=== PATIENT | female | born 1935 | race Caucasian/White ===

== ENCOUNTER 2021-05-26 02:50 | Inpatient (IN) ==
[2021-05-26] MEDS ORDERED: ONDANSETRON INJ 2 MG/ML 2 ML VIAL IV STA (03:25)
[2021-05-26] MEDS ORDERED: HYDROmorphone INJ 0.5 MG/0.5 ML SYR IV STA ×2 (03:25→03:41)
[2021-05-26 03:28] LABS: Basophils # (auto) 0.02 K/uL (0-0.2); Basophils % (auto) 0.2 %; Eosinophils # (auto) 0.21 K/uL (0-0.5); Eosinophils % (auto) 2.3 %; Hematocrit (blood only) 37.1 % (37-47); Hemoglobin 12.8 g/dL (12.0-16.0); Immature Granulocytes # (auto) 0.04 K/uL (0.00-0.02); Immature Granulocytes % (auto) 0.4 %; Lymphocytes # (auto) 4.16 K/uL (1.2-3.4); Lymphocytes % (auto) 46.5 %; Mean Corpuscular Hemoglobin 33.2 pg (25-34); Mean Corpuscular Hgb Conc 34.5 g/dL (32-36); Mean Corpuscular Volume 96.1 fL (80-100); Mean Platelet Volume 10.8 fL (7.4-10.4); Monocytes # (auto) 0.66 K/uL (0.11-0.59); Monocytes % (auto) 7.4 %; Neutrophils # (auto) 3.86 K/uL (1.4-6.5); Neutrophils % (auto) 43.2 %; Platelet Count 194 K/uL (130-400); RDW Coefficient of Variation 13.8 % (11.5-14.5); RDW Standard Deviation 48.9 fL (36.4-46.3); Red Blood Count 3.86 M/uL (4.2-5.4); White Blood Count 8.95 K/uL (4.8-10.8)
[2021-05-26 03:39] LABS: INR 1.1 (0.9-1.1); Partial Thromboplastin Ratio 0.8; Partial Thromboplastin Time 22.6 Seconds (21.0-31.0); Prothrombin Time 11.3 Seconds (9.0-12.0)
[2021-05-26 03:46] LABS: Albumin Globulin Ratio 1.5 (0.9-2); BUN Creatinine Ratio 16.7 (10-20); Bilirubin,Total 0.9 mg/dl (0.2-1.0); Calcium 9.4 mg/dl (8.5-10.1); Creatinine Clr Calc Pharmacy 37.8 ml/min; Est GFR (African American) 53.8 ml/min; Est GFR (Non-African American) 46.4 ml/min; Globulin 2.7 gm/dl (2.5-4.0); Potassium 3.4 mmol/L (3.5-5.1); Total Protein 6.7 gm/dl (6.0-8.3)
--- NOTE | 2021-05-26 03:53 | Emergency Department Note ---
Impression & Plan Fracture of hip, left, closed, Fall Admit to the [facility] ED Provider Note NAME: YESICA KASPER AGE: 85 SEX: F ARRIVES VIA: Ambulance INFORMANT: Patient ED PROVIDER(S): Jelena Phillips DO CHIEF COMPLAINT: Fall PLAN: Disposition: Admit to the [facility] with consultation to orthopedics Condition: Stable MEDICAL DECISION MAKING: This is an 85-year-old female patient who fell out of bed and complains of severe left hip pain. The patient was found on the floor complaining of pain in her left groin. Patient suffers from dementia. X-ray shows evidence of a left femoral neck fracture. Patient was treated with IV Dilaudid and fentanyl for her pain. There were no other outward signs of trauma to the patient. Triage Nursing notes reviewed and agree with them. Additional history obtained from EMS Prior medical records reviewed Vital Signs: reviewed and remarkable for hypertension Differential diagnosis: Hip fracture, pelvis fracture, head injury ER treatment provided: IV Dilaudid x2 IV Zofran IV fentanyl Diagnostics interpreted by me: ECG: Sinus bradycardia at [address] segment elevation or signs of ischemia. There is a left bundle branch block. This EKG is unchanged from March 2021 Cardiac Monitoring: Sinus bradycardia at 59 Laboratory studies: See below Imaging studies: As per my interpretation Left hip x-ray: Femoral neck fracture Chest x-ray: No acute pulmonary pathology HPI: 85/F arrives for evaluation of fall. The patient fell out of bed. She was found on the floor yelling out in pain. There was no loss of consciousness. ROS: The patient suffers from dementia and I cannot complete review of systems. PAST MEDICAL HISTORY:See Below PAST SURGICAL HISTORY:See Below FAMILY HISTORY:See Below SOCIAL HISTORY:See Below HOME MEDICATIONS:See list ALLERGIES:See list VITALS:See Below PHYSICAL EXAMINATION: HEENT: Head - normocephalic and atraumatic Pupils are equal, round, and reactive to light. Extraocular eye muscles are intact, and sclera are anicteric. Nose - moist nasal mucosa without discharge. Mouth - moist buccal mucosa. Oropharynx is nonerythematous and there is no tonsillar exudate or edema noted. Neck: Supple; no pain to palpation of the posterior cervical spine Heart: Bradycardic rate and regular rhythm. There is a normal S1 and S2 with no murmurs, clicks, or gallops appreciated. Lungs: Clear to auscultation bilaterally with no wheezes, rales, or rhonchi. Abdomen: Soft, completely nontender, nondistended, with good bowel sounds. There are no palpable pulsatile masses or hepatosplenomegaly. There is no guarding, rigidity, or rebound noted. Extremities: Left lower extremity is shortened and internally rotated. Patient has moderate pain to palpation over the left hip and groin. Skin: warm and dry with good turgor and no rashes. ED COURSE: Times/Reassessments: 310: The patient was evaluated in room A4. An IV lock was initiated and the patient was medicated with IV Dilaudid and Zofran. Her studies were drawn as above. A complete history and physical was performed. Patient had x-rays of her left hip and chest. Bergeron catheter was placed. I discussed the case with the [facility] hospitalist. Jelena Phillips DO Past Med/Surg History Medical History Acute kidney failure Alzheimer disease Anorexia Anxiety disorder Ataxic gait Dementia Dizziness and giddiness Hyperlipidemia Hypertension Muscle weakness Surgical History Surgical history unknown Social History Smoking Status: Never smoker Second Hand Exposure: No; Hx Alcohol Use: No Hx Substance Use: No Preferred Language: Nepali Communication Ability: Effective Office Coordinator Receptionist Required: No Beliefs That Will Affect Care: None Current Living Situation: Jail Feels Safe at Home: Yes Assistive Devices: Oxygen - Continuous Allergies Allergies Allergy/AdvReac Type Severity Reaction Status Date / Time procaine [From Novocain] Allergy Verified 05/09/21 12:36 Home Meds Home Medications Medication Instructions Recorded Confirmed atenolol 25 mg tablet 25 mg PO QAM 03/12/21 05/26/21 atorvastatin 10 mg tablet 10 mg PO PM 03/12/21 05/26/21 calcium carbonate 600 mg-vitamin 1 tab PO DAILY 03/12/21 05/26/21 D3 20 mcg (800 unit) chewable tablet (Caltrate 600 plus D) donepezil 10 mg tablet 10 mg PO QPM 03/12/21 05/26/21 lorazepam 1 mg tablet 1 mg PO QPM 03/12/21 05/26/21 meclizine 25 mg tablet 25 mg PO Q8H PRN 03/12/21 05/26/21 multivitamin 1 tab PO DAILY 03/12/21 05/26/21 potassium chloride 20 mEq 20 meq PO DAILY 03/12/21 05/26/21 tablet,extended release ondansetron HCl 4 mg tablet 4 mg PO Q8H PRN 04/01/21 05/26/21 loperamide 2 mg tablet 2 mg PO Q4H PRN 05/03/21 05/26/21 memantine 5 mg tablet 5 mg PO BID 05/03/21 05/26/21 aspirin 81 mg capsule 81 mg PO DAILY 05/09/21 05/26/21 Previous Rx's Medication Instructions Recorded pantoprazole 40 mg tablet,delayed 40 mg PO BID #180 tab 04/09/21 release Results & Data (ED) Vital Signs Vital Signs - 24 hr 05/26/21 02:53 05/26/21 04:20 Temperature 36.5 C Temperature Source Oral Pulse Rate 59 L Pulse Rate [Right Finger] 58 L Pulse Rhythm [Right Finger] Regular Respiratory Rate 20 20 Respiratory Effort / Characteristics Non-Labored Spontaneous Respiratory Depth Normal Respiratory Pattern Regular Blood Pressure 152/101 H Blood Pressure [Right Arm] 138/71 Blood Pressure Mean 118 Blood Pressure Mean [Right Arm] 93 Blood Pressure Position Lying Pulse Oximetry 100 100 Oxygen Delivery Method Room Air Room Air Sepsis Recent Fever Within 48 Hours No Sepsis New/Unexplained Change in Mental Status No Sepsis Action Taken by Nursing No Action Required Laboratory Data Result diagrams: 05/26/21 11:45 05/26/21 20:20 Lab Results 05/26/21 05/26/21 05/26/21 Range/Units 03:18 03:18 03:18 WBC 8.95 (4.8-10.8) K/uL RBC 3.86 L (4.2-5.4) M/uL Hgb 12.8 (12.0-16.0) g/dL Hct 37.1 (37-47) % MCV 96.1 (80-100) fL MCH 33.2 (25-34) pg MCHC 34.5 (32-36) g/dL RDW Std Deviation 48.9 H (36.4-46.3) fL RDW Coeff of Ria 13.8 (11.5-14.5) % Plt Count 194 (130-400) K/uL MPV 10.8 H (7.4-10.4) fL Immature Gran % (Auto) 0.4 % Neut % (Auto) 43.2 % Lymph % (Auto) 46.5 % [place] % (Auto) 7.4 % Eos % (Auto) 2.3 % Baso % (Auto) 0.2 % Neut # (Auto) 3.86 (1.4-6.5) K/uL Lymph # (Auto) 4.16 H (1.2-3.4) K/uL [place] # (Auto) 0.66 H (0.11-0.59) K/uL Eos # (Auto) 0.21 (0-0.5) K/uL Baso # (Auto) 0.02 (0-0.2) K/uL Immature Gran # (Auto) 0.04 H (0.00-0.02) K/uL PT 11.3 (9.0-12.0) Seconds INR 1.1 (0.9-1.1) APTT 22.6 (21.0-31.0) Seconds PTT Ratio 0.8 Sodium 141 (136-145) mmol/L Potassium 3.4 L (3.5-5.1) mmol/L Chloride 108 H (98-107) mmol/L Carbon Dioxide 23 (21-32) mmol/L Anion Gap 10 (3-11) BUN 18 (6-23) mg/dl Creatinine 1.08 (0.6-1.2) mg/dl Est Cr Clr Drug Dosing 37.8 ml/min Est GFR ( Amer) 53.8 ml/min Est GFR (Non-Af Amer) 46.4 ml/min BUN/Creatinine Ratio 16.7 (10-20) Glucose 94 (70-99(Fasting)) mg/dl Calcium 9.4 (8.5-10.1) mg/dl Total Bilirubin 0.9 (0.2-1.0) mg/dl AST 21 (13-39) U/L ALT 15 (7-52) U/L Alkaline Phosphatase 71 (34-104) U/L Total Protein 6.7 (6.0-8.3) gm/dl Albumin 4.0 (3.4-5.0) gm/dl Globulin 2.7 (2.5-4.0) gm/dl Albumin/Globulin Ratio 1.5 (0.9-2) Urine Color Urine Appearance (Clear) Urine pH (4.5-7.5) Ur Specific [place] (1.000-1.030) Urine Protein (Negative) Urine Glucose (UA) (Negative) Urine Ketones (Negative) Urine Blood (Negative) Urine Nitrite (Negative) Urine Bilirubin (Negative) Urine Urobilinogen (Negative) Ur Leukocyte Esterase (Negative) SARS-CoV-2, RNA, NAAT (NEGATIVE) 05/26/21 05/26/21 Range/Units 03:55 04:43 WBC (4.8-10.8) K/uL RBC (4.2-5.4) M/uL Hgb (12.0-16.0) g/dL Hct (37-47) % MCV (80-100) fL MCH (25-34) pg MCHC (32-36) g/dL RDW Std Deviation (36.4-46.3) fL RDW Coeff of Ira (11.5-14.5) % Plt Count (130-400) K/uL MPV (7.4-10.4) fL Immature Gran % (Auto) % Neut % (Auto) % Lymph % (Auto) % [place] % (Auto) % Eos % (Auto) % Baso % (Auto) % Neut # (Auto) (1.4-6.5) K/uL Lymph # (Auto) (1.2-3.4) K/uL [place] # (Auto) (0.11-0.59) K/uL Eos # (Auto) (0-0.5) K/uL Baso # (Auto) (0-0.2) K/uL Immature Gran # (Auto) (0.00-0.02) K/uL PT (9.0-12.0) Seconds INR (0.9-1.1) APTT (21.0-31.0) Seconds PTT Ratio Sodium (136-145) mmol/L Potassium (3.5-5.1) mmol/L Chloride (98-107) mmol/L Carbon Dioxide (21-32) mmol/L Anion Gap (3-11) BUN (6-23) mg/dl Creatinine (0.6-1.2) mg/dl Est Cr Clr Drug Dosing ml/min Est GFR ( Amer) ml/min Est GFR (Non-Af Amer) ml/min BUN/Creatinine Ratio (10-20) Glucose (70-99(Fasting)) mg/dl Calcium (8.5-10.1) mg/dl Total Bilirubin (0.2-1.0) mg/dl AST (13-39) U/L ALT (7-52) U/L Alkaline Phosphatase (34-104) U/L Total Protein (6.0-8.3) gm/dl Albumin (3.4-5.0) gm/dl Globulin (2.5-4.0) gm/dl Albumin/Globulin Ratio (0.9-2) Urine Color Yellow Urine Appearance Clear (Clear) Urine pH 8.0 H (4.5-7.5) Ur Specific [place] 1.009 (1.000-1.030) Urine Protein Negative (Negative) Urine Glucose (UA) Negative (Negative) Urine Ketones Negative (Negative) Urine Blood Negative (Negative) Urine Nitrite Negative (Negative) Urine Bilirubin Negative (Negative) Urine Urobilinogen Negative (Negative) Ur Leukocyte Esterase Negative (Negative) SARS-CoV-2, RNA, NAAT NEGATIVE (NEGATIVE) Administered Medications Atenolol (Atenolol 25 Mg Tablet) 25 mg PO QAM GISELLE Stop: 06/25/21 08:59 Last Admin: 05/26/21 12:05 Dose: Not Given Documented by: [id number] Atorvastatin Calcium (Atorvastatin 10 Mg Tab) 10 mg PO PM GISELLE Stop: 06/25/21 20:59 Last Admin: 05/26/21 20:10 Dose: Not Given Documented by: [id number] Lorazepam (Lorazepam 1 Mg Tab) 1 mg PO QPM GISELLE Stop: 06/25/21 20:59 Last Admin: 05/26/21 20:10 Dose: Not Given Documented by: [id number] Pantoprazole Sodium (Pantoprazole 40 Mg Tab) 40 mg PO BID GISELLE Stop: 06/25/21 08:59 Last Admin: 05/26/21 20:10 Dose: Not Given Documented by: [id number] Admin: 05/26/21 12:05 Dose: Not Given Documented by: [id number] Discontinued Medications Fentanyl Citrate (Fentanyl Citrate 100 Mcg/2 Ml Vial) 50 mcg IV NOW STA Stop: 05/26/21 04:29 Last Admin: 05/26/21 04:42 Dose: 50 mcg Documented by: [id number] Fentanyl Citrate (Fentanyl Citrate 100 Mcg/2 Ml Vial) 25 mcg IV NOW ONE Stop: 05/26/21 23:23 Last Admin: 05/26/21 23:26 Dose: 25 mcg Documented by: [id number] Fentanyl Citrate (Fentanyl Citrate 100 Mcg/2 Ml Vial) Confirm Administered Dose 100 mcg .ROUTE .STK-MED ONE Stop: 05/26/21 23:26 Last Admin: 05/26/21 23:27 Dose: Not Given Documented by: [id number] Hydromorphone HCl (Hydromorphone Inj 0.5 Mg/0.5 Ml Syr) 0.5 mg IV NOW STA Stop: 05/26/21 03:26 Last Admin: 05/26/21 03:28 Dose: 0.5 mg Documented by: [id number] Hydromorphone HCl (Hydromorphone Inj 0.5 Mg/0.5 Ml Syr) 0.5 mg IV NOW STA Stop: 05/26/21 03:42 Last Admin: 05/26/21 03:53 Dose: 0.5 mg Documented by: [id number] Lactated Ringer's (Lr) 1,000 mls @ 125 mls/hr IV .Q8H [facility] Stop: 05/26/21 14:05 Last Infusion: 05/26/21 19:53 Dose: 0 mls/hr Documented by: [id number] Infusion: 05/26/21 11:14 Dose: 80 mls/hr Documented by: [id number] Infusion: 05/26/21 10:07 Dose: 0 mls/hr Documented by: [id number] Admin: 05/26/21 07:26 Dose: 80 mls/hr Documented by: [id number] Potassium Chloride (K Saud / Wtr) 10 meq in 100 mls @ 100 mls/hr IV ONE ONE; Protocol Stop: 05/26/21 10:59 Last Infusion: 05/26/21 11:03 Dose: 0 mls/hr Documented by: [id number] Admin: 05/26/21 10:03 Dose: 100 mls/hr Documented by: [id number] Magnesium Sulfate/Dextrose (Magnesium Sulfate / D5w) 1 gm in 100 mls @ 50 mls/hr IV Q2H GISELLE Stop: 05/26/21 16:14 Last Infusion: 05/26/21 12:34 Dose: 0 mls/hr Documented by: [id number] Admin: 05/26/21 12:26 Dose: 50 mls/hr Documented by: [id number] Infusion: 05/26/21 12:26 Dose: 50 mls/hr Documented by: [id number] Admin: 05/26/21 12:26 Dose: 50 mls/hr Documented by: [id number] Potassium Chloride (K Saud / Wtr) 10 meq in 100 mls @ 100 mls/hr IV Q1H GISELLE; Protocol Stop: 05/26/21 14:59 Last Infusion: 05/26/21 14:25 Dose: 0 mls/hr Documented by: [id number] Admin: 05/26/21 13:45 Dose: 150 mls/hr Documented by: [id number] Infusion: 05/26/21 13:45 Dose: 0 mls/hr Documented by: [id number] Admin: 05/26/21 13:12 Dose: 150 mls/hr Documented by: [id number] Potassium Chloride (K Saud / Wtr) 10 meq in 100 mls @ 100 mls/hr IV Q1H GISELLE; Protocol Stop: 05/26/21 18:59 Last Infusion: 05/26/21 19:53 Dose: 0 mls/hr Documented by: [id number] Admin: 05/26/21 18:28 Dose: 100 mls/hr Documented by: [id number] Infusion: 05/26/21 18:27 Dose: 100 mls/hr Documented by: [id number] Admin: 05/26/21 17:27 Dose: 100 mls/hr Documented by: [id number] Infusion: 05/26/21 17:27 Dose: 100 mls/hr Documented by: [id number] Admin: 05/26/21 16:28 Dose: 100 mls/hr Documented by: [id number] Infusion: 05/26/21 16:25 Dose: 100 mls/hr Documented by: [id number] Admin: 05/26/21 15:25 Dose: 100 mls/hr Documented by: [id number] Infusion: 05/26/21 15:25 Dose: 100 mls/hr Documented by: [id number] Admin: 05/26/21 14:26 Dose: 100 mls/hr Documented by: [id number] Ketorolac Tromethamine (Ketorolac Tromethamine 15 Mg/Ml Vial) 15 mg IV NOW ONE Stop: 05/26/21 14:31 Last Admin: 05/26/21 14:47 Dose: 15 mg Documented by: [id number] Memantine (Memantine Hcl 5 Mg Tab) 5 mg PO BID GISELLE Stop: 06/25/21 08:59 Last Admin: 05/26/21 12:05 Dose: Not Given Documented by: [id number] Morphine Sulfate (Morphine Sulfate 2 Mg/Ml Carp) 2 mg IV NOW STA Stop: 05/26/21 05:40 Last Admin: 05/26/21 05:48 Dose: Not Given Documented by: [id number] Morphine Sulfate (Morphine Sulfate 2 Mg/Ml Carp) Confirm Administered Dose 2 mg .ROUTE .STK-MED ONE Stop: 05/26/21 05:42 Last Admin: 05/26/21 05:44 Dose: 2 mg Documented by: [id number] Morphine Sulfate (Morphine Sulfate 2 Mg/Ml Carp) 2 mg IV Q2H PRN PRN Reason: Pain (1,2,3,4,5) & Pre PT Stop: 06/09/21 07:04 Last Admin: 05/26/21 10:38 Dose: 2 mg Documented by: [id number] Admin: 05/26/21 07:25 Dose: 2 mg Documented by: [id number] Ondansetron HCl (Ondansetron Inj 2 Mg/Ml 2 Ml Vial) 4 mg IV NOW STA Stop: 05/26/21 03:26 Last Admin: 05/26/21 03:28 Dose: 4 mg Documented by: [id number] Ondansetron HCl (Ondansetron Inj 2 Mg/Ml 2 Ml Vial) 4 mg IV Q6H PRN PRN Reason: Nausea And Vomiting Stop: 06/25/21 07:04 Last Admin: 05/26/21 07:25 Dose: 4 mg Documented by: [id number] Perflutren Lipid Microsphere (Perflutren Lipid Microsphere (Definity)) 2 ml IV ONCE ONE Stop: 05/26/21 12:32 Last Admin: 05/26/21 12:31 Dose: 2 ml Documented by: [id number] Potassium Chloride (Potassium Chloride Crtab 20 Meq Tabcr) 20 meq PO NOW STA Stop: 05/26/21 08:17 Last Admin: 05/26/21 09:58 Dose: Not Given Documented by: [id number] Discharge Plan Visit Data Chief Complaint: Fall Stated Complaint: Fall ED Provider: Jelena Phillips Discharge Problem: Fracture of hip, left, closed, Fall Patient Disposition: Admitted As Inpatient Discharge Instructions Interventions: ED Discharge Assessment Last Done: 05/26/21 06:30 Discharge Problem: Fracture of hip, left, closed Qualifiers: Encounter type: initial encounter Qualified Code(s): S72.002A - Fracture of unspecified part of neck of left femur, initial encounter for closed fracture Fall Qualifiers: Encounter type: initial encounter Qualified Code(s): W19.XXXA - Unspecified fall, initial encounter
[2021-05-26 04:04] LABS: Appearance Urine Clear (Clear); Bilirubin Urine Negative (Negative); Blood Urine Negative (Negative); Color Urine Yellow; Glucose Urine UA Negative (Negative); Ketones Urine Negative (Negative); Leukocyte Esterase Urine Negative (Negative); Nitrite Urine Negative (Negative); Protein Urine Negative (Negative); Specific Gravity Urine 1.009 (1.000-1.030); Urobilinogen Urine Negative (Negative)
[2021-05-26] MEDS ORDERED: fentaNYL citrate 100 MCG/2 ML VIAL IV STA (04:28)
[2021-05-26] MEDS ORDERED: MoRPHine SULFATE 2 MG/ML CARP IV STA (05:39)
[2021-05-26] MEDS ORDERED: MoRPHine SULFATE 2 MG/ML CARP ONE (05:41)
--- NOTE | 2021-05-26 05:49 | History & Physical Report ---
Date of Service May 26, 2021 Assessment & Plan (1) Closed left hip fracture: Plan: Fracture of left hip s/p fall. NV intact. Significant pain -Admit to medical -Turn and position as needed for comfort -Tylenol, Morphine PRN -Zofran PRN -Maintain urinary catheter -Hold ASA -Orthopedics consultation appreciated Per RSRI criteria patient is Class I Risk. She is medically optimized and may proceed to surgery with no additional testing. Will hold daily ASA and resume at discretion of surgical team Continue shanta-operative BB - Atenolol 25mg po qAM, hold for bradycardia (2) Dementia: Plan: Frequent orientation -Continue Aricept and Memantine (3) Hypertension: Plan: Blood pressure well controlled -Continue Atenolol with HR holding parameters (4) Hyperlipidemia: Plan: Chronic -Continue Atorvastatin (5) GERD (gastroesophageal reflux disease): Plan: Chronic. Patient had an EGD performed on 05/09/21 which revealed a small hiatal hernia and gastritis which was biopsied. -Continue Protonix BID Plan: No paperwork came with patient from group home. She is unable to list her medications. No Med-rec electronics engineering technician on at this time. Inpatient records reviewed and external med history to the best of my ability. Home medications should be confirmed with the senior living later today if possible. FEM - gentle IVF, electroltyes WNL, NPO Ppx - SCD Code - Full per discussion with patient Dispo - Admit to medical History of Present Illness Chief Complaint: fall, left hip fracture Primary Care Provider: [facility] Tabby Zambrano is an 85yo female with history of HTN, HLP, Dementia presenting with left hip fracture. Patient does not fully recall the events leading to the fall. She denies LOC or head trauma. States that she is having excruciating pain in her left hip, inability to move. Ambulatory prior to fall ER Course: Fentanyl, Dilaudid, Morphine, Zofran Allergies Allergy/AdvReac Type Severity Reaction Status Date / Time procaine [From Novocain] Allergy Verified 05/09/21 12:36 Home Medications Medication Instructions Recorded Confirmed Type atenolol 25 mg tablet 25 mg PO QAM 03/12/21 05/26/21 History atorvastatin 10 mg tablet 10 mg PO PM 03/12/21 05/26/21 History calcium carbonate 600 mg-vitamin 1 tab PO DAILY 03/12/21 05/26/21 History D3 20 mcg (800 unit) chewable tablet (Caltrate 600 plus D) donepezil 10 mg tablet 10 mg PO QPM 03/12/21 05/26/21 History lorazepam 1 mg tablet 1 mg PO QPM 03/12/21 05/26/21 History meclizine 25 mg tablet 25 mg PO Q8H PRN 03/12/21 05/26/21 History multivitamin 1 tab PO DAILY 03/12/21 05/26/21 History potassium chloride 20 mEq 20 meq PO DAILY 03/12/21 05/26/21 History tablet,extended release ondansetron HCl 4 mg tablet 4 mg PO Q8H PRN 04/01/21 05/26/21 History pantoprazole 40 mg tablet,delayed 40 mg PO BID #180 tab 04/09/21 05/26/21 Rx release loperamide 2 mg tablet 2 mg PO Q4H PRN 05/03/21 05/26/21 History memantine 5 mg tablet 5 mg PO BID 05/03/21 05/26/21 History aspirin 81 mg capsule 81 mg PO DAILY 05/09/21 05/26/21 History Past Med/Surg History Medical History Acute kidney failure Alzheimer disease Anorexia Anxiety disorder Ataxic gait Dementia Dizziness and giddiness Hyperlipidemia Hypertension Muscle weakness Surgical History Surgical history unknown Social History (Updated 04/01/21 @ 13:54 by Vaughn Dooley MA) Smoking Status: Never smoker Hx Alcohol Use: No Current Living Situation: [facility] Feels Safe at Home: Yes Review of Systems Review of Systems: All systems reviewed & are unremarkable except as noted in HPI & below Physical Exam Physical Exam: General: patient in significant pain, answers questions and follows commands Skin: warm, dry, intact, no rashes or lesions HEENT: NC/AT, PERRL, EOMI, anicteric sclera, conjunctiva without injection, external ear normal to inspection and nontender, nares patent, moist mucus membranes, dentition intact, no oropharyngeal lesions, neck supple, trachea midline, no LAD, no thyromegaly, no JVD Heart: +S1/S2, regular, no m/r/g Lungs: equal air entry bilaterally, no rales/rhonchi/wheezes Abd: +BS, soft, NT/ND, no masses/organomegaly/ascites Ext: warm, 2+ pulses in UE/LE bilaterally, no clubbing/cyanosis or edema, left foot NV intact Neuro: nonfocal, no facial droop, moving all extremities on command with equal strength 5/5 - limited mobility LLE due to pain Results & Data Results & Data ([facility]) Vital Signs (Past 12 Hours) Vital Signs Temp Pulse Pulse Resp BP BP Pulse Ox 05/26/21 04:20 58 L 20 138/71 100 05/26/21 02:53 36.5 C 59 L 20 152/101 H 100 Laboratory Results Laboratory Results WBC 8.95 K/uL (4.8-10.8) 05/26/21 03:18 RBC 3.86 M/uL (4.2-5.4) L 05/26/21 03:18 Hgb 12.8 g/dL (12.0-16.0) 05/26/21 03:18 Hct 37.1 % (37-47) 05/26/21 03:18 MCV 96.1 fL (80-100) 05/26/21 03:18 MCH 33.2 pg (25-34) 05/26/21 03:18 MCHC 34.5 g/dL (32-36) 05/26/21 03:18 RDW Std Deviation 48.9 fL (36.4-46.3) H 05/26/21 03:18 RDW Coeff of Ria 13.8 % (11.5-14.5) 05/26/21 03:18 Plt Count 194 K/uL (130-400) 05/26/21 03:18 MPV 10.8 fL (7.4-10.4) H 05/26/21 03:18 Immature Gran % (Auto) 0.4 % 05/26/21 03:18 Neut % (Auto) 43.2 % 05/26/21 03:18 Lymph % (Auto) 46.5 % 05/26/21 03:18 [place] % (Auto) 7.4 % 05/26/21 03:18 Eos % (Auto) 2.3 % 05/26/21 03:18 Baso % (Auto) 0.2 % 05/26/21 03:18 Neut # (Auto) 3.86 K/uL (1.4-6.5) 05/26/21 03:18 Lymph # (Auto) 4.16 K/uL (1.2-3.4) H 05/26/21 03:18 [place] # (Auto) 0.66 K/uL (0.11-0.59) H 05/26/21 03:18 Eos # (Auto) 0.21 K/uL (0-0.5) 05/26/21 03:18 Baso # (Auto) 0.02 K/uL (0-0.2) 05/26/21 03:18 Immature Gran # (Auto) 0.04 K/uL (0.00-0.02) H 05/26/21 03:18 PT 11.3 Seconds (9.0-12.0) 05/26/21 03:18 INR 1.1 (0.9-1.1) 05/26/21 03:18 APTT 22.6 Seconds (21.0-31.0) 05/26/21 03:18 PTT Ratio 0.8 05/26/21 03:18 Sodium 141 mmol/L (136-145) 05/26/21 03:18 Potassium 3.4 mmol/L (3.5-5.1) L 05/26/21 03:18 Chloride 108 mmol/L (98-107) H 05/26/21 03:18 Carbon Dioxide 23 mmol/L (21-32) 05/26/21 03:18 Anion Gap 10 (3-11) 05/26/21 03:18 BUN 18 mg/dl (6-23) 05/26/21 03:18 Creatinine 1.08 mg/dl (0.6-1.2) 05/26/21 03:18 Est Cr Clr Drug Dosing 37.8 ml/min 05/26/21 03:18 Est GFR ( Amer) 53.8 ml/min 05/26/21 03:18 Est GFR (Non-Af Amer) 46.4 ml/min 05/26/21 03:18 BUN/Creatinine Ratio 16.7 (10-20) 05/26/21 03:18 Glucose 94 mg/dl (70-99(Fasting)) 05/26/21 03:18 Calcium 9.4 mg/dl (8.5-10.1) 05/26/21 03:18 Total Bilirubin 0.9 mg/dl (0.2-1.0) 05/26/21 03:18 AST 21 U/L (13-39) 05/26/21 03:18 ALT 15 U/L (7-52) 05/26/21 03:18 Alkaline Phosphatase 71 U/L (34-104) 05/26/21 03:18 Total Protein 6.7 gm/dl (6.0-8.3) 05/26/21 03:18 Albumin 4.0 gm/dl (3.4-5.0) 05/26/21 03:18 Globulin 2.7 gm/dl (2.5-4.0) 05/26/21 03:18 Albumin/Globulin Ratio 1.5 (0.9-2) 05/26/21 03:18 Urine Color Yellow 05/26/21 03:55 Urine Appearance Clear (Clear) 05/26/21 03:55 Urine pH 8.0 (4.5-7.5) H 05/26/21 03:55 Ur Specific [place] 1.009 (1.000-1.030) 05/26/21 03:55 Urine Protein Negative (Negative) 05/26/21 03:55 Urine Glucose (UA) Negative (Negative) 05/26/21 03:55 Urine Ketones Negative (Negative) 05/26/21 03:55 Urine Blood Negative (Negative) 05/26/21 03:55 Urine Nitrite Negative (Negative) 05/26/21 03:55 Urine Bilirubin Negative (Negative) 05/26/21 03:55 Urine Urobilinogen Negative (Negative) 05/26/21 03:55 Ur Leukocyte Esterase Negative (Negative) 05/26/21 03:55 SARS-CoV-2, RNA, NAAT NEGATIVE (NEGATIVE) 05/26/21 04:43 Code Status & VTE Plan VTE Prophylaxis Plan VTE Prophylaxis will be ordered: Yes PG Care Time/CCT Total # of Minutes Spent Total Time Spent with Patient: Total time spent is greater than 50% in coordination of care (as documented) at patient's floor/unit and/or counseling patient: Coding Level of Care Code 21895 Initial Inpt Care Lvl 3 Diagnoses Dementia F03.90 Hypertension I10 Hyperlipidemia E78.5 Closed left hip fracture S72.002A GERD (gastroesophageal reflux disease) K21.9
[2021-05-26] MEDS ORDERED: LACTATED RINGER'S 1,000 ML IV SCH (07:05)
[2021-05-26] MEDS ORDERED: NALOXONE HCL 0.4 MG/1 ML VIAL/CARP IV PRN (07:05)
[2021-05-26] MEDS ORDERED: MAGNESIUM HYDROXIDE SUSP 30 ML UDC PO PRN (07:05)
[2021-05-26] MEDS ORDERED: ACETAMINOPHEN 325 MG TAB PO PRN (07:05)
[2021-05-26] MEDS ORDERED: bisacodyL 10 MG SUPP PR PRN (07:05)
[2021-05-26] MEDS ORDERED: ONDANSETRON INJ 2 MG/ML 2 ML VIAL IV PRN (07:05)
[2021-05-26] MEDS: MoRPHine SULFATE 2 MG/ML CARP IV PRN ×2 (07:25→10:38)
--- NOTE | 2021-05-26 07:47 | Anesthesiology Consultation ---
Date of Service May 26, 2021 Assessment & Plan (1) Encounter for pre-operative examination: Chart Review Chart Review: entry clerk initiated History Height/Weight Height: 5 ft 4 in Weight: 77.9 kg Allergies Allergy/AdvReac Type Severity Reaction Status Date / Time procaine [From Novocain] Allergy Verified 05/09/21 12:36 Medications Home Medications Medication Instructions Recorded Confirmed Last Taken atenolol 25 mg tablet 25 mg PO QAM 03/12/21 05/26/21 05/08/21 atorvastatin 10 mg tablet 10 mg PO PM 03/12/21 05/26/21 05/08/21 calcium carbonate 600 mg-vitamin 1 tab PO DAILY 03/12/21 05/26/21 05/08/21 D3 20 mcg (800 unit) chewable tablet (Caltrate 600 plus D) donepezil 10 mg tablet 10 mg PO QPM 03/12/21 05/26/21 05/08/21 lorazepam 1 mg tablet 1 mg PO QPM 03/12/21 05/26/21 05/08/21 meclizine 25 mg tablet 25 mg PO Q8H PRN 03/12/21 05/26/21 Unknown multivitamin 1 tab PO DAILY 03/12/21 05/26/21 05/08/21 potassium chloride 20 mEq 20 meq PO DAILY 03/12/21 05/26/21 05/08/21 tablet,extended release ondansetron HCl 4 mg tablet 4 mg PO Q8H PRN 04/01/21 05/26/21 Unknown pantoprazole 40 mg tablet,delayed 40 mg PO BID #180 tab 04/09/21 05/26/21 05/08/21 release loperamide 2 mg tablet 2 mg PO Q4H PRN 05/03/21 05/26/21 Unknown memantine 5 mg tablet 5 mg PO BID 05/03/21 05/26/21 05/08/21 aspirin 81 mg capsule 81 mg PO DAILY 05/09/21 05/26/21 05/08/21 Active Medications Generic Name Dose Route Start Last Admin Trade Name Freq PRN Reason Stop Dose Admin Lactated Ringer's 1,000 mls @ 80 mls/hr 05/26/21 07:05 05/26/21 07:26 Lr IV 05/27/21 08:04 80 mls/hr .[id number] GISELLE Administration Morphine Sulfate 2 mg 05/26/21 07:05 05/26/21 07:25 Morphine Sulfate 2 Mg/Ml Carp IV 06/09/21 07:04 2 mg Q2H PRN Administration Pain (1,2,3,4,5) & Pre PT Ondansetron HCl 4 mg 05/26/21 07:05 05/26/21 07:25 Ondansetron Inj 2 Mg/Ml 2 Ml Vial IV 06/25/21 07:04 4 mg Q6H PRN Administration Nausea And Vomiting Past Medical History Medical History Acute kidney failure Alzheimer disease Anorexia Anxiety disorder Ataxic gait Dementia Dizziness and giddiness Hyperlipidemia Hypertension Muscle weakness Past Surgical History Surgical History Surgical history unknown Social History Smoking Status: Never smoker Hx Alcohol Use: No Physical Exam Vital Signs Last Vital Signs Temp 98.6 F 05/26/21 07:11 Pulse 56 L 05/26/21 07:11 Resp 18 05/26/21 07:11 BP 158/71 H 05/26/21 07:11 Pulse Ox 98 05/26/21 07:11 Testing Laboratory Results 05/26/21 03:18 05/26/21 03:18 PT 11.3 Seconds (9.0-12.0) 05/26/21 03:18 INR 1.1 (0.9-1.1) 05/26/21 03:18 APTT 22.6 Seconds (21.0-31.0) 05/26/21 03:18 Urine Color Yellow 05/26/21 03:55 Urine Appearance Clear (Clear) 05/26/21 03:55 Urine pH 8.0 (4.5-7.5) H 05/26/21 03:55 Ur Specific [place] 1.009 (1.000-1.030) 05/26/21 03:55 Urine Protein Negative (Negative) 05/26/21 03:55 Urine Glucose (UA) Negative (Negative) 05/26/21 03:55 Urine Ketones Negative (Negative) 05/26/21 03:55 Urine Nitrite Negative (Negative) 05/26/21 03:55 Ur Leukocyte Esterase Negative (Negative) 05/26/21 03:55 Laboratory Tests 05/26/21 04:43 SARS-CoV-2, RNA, NAAT NEGATIVE Electrocardiogram Date: 05/26/21 Sinus bradycardia, rate 55 bpm Left bundle branch block Abnormal ECG When compared with ECG of 12-MAR-2021 17:36, No significant change was found
[2021-05-26] MEDS ORDERED: POTASSIUM CHLORIDE CRTAB 20 MEQ TABCR PO STA (08:16)
--- NOTE | 2021-05-26 08:58 | XRay Report ---
XR hip LT min 2V CLINICAL HISTORY: hip pain. Status post fall COMPARISON STUDY: No previous studies for comparison. TECHNIQUE: 2 left hip views FINDINGS: Bones: There is a displaced, transcervical fracture of the left femoral neck. The femoral shaft is isbell periorly displaced in relation to the femoral head. Coxa varus deformity is present. There is no lyti c or blastic lesion. Joints: The femoral head maintains its anatomic position within the acetabulum. Soft tissues: There is no focal soft tissue abnormality. There is no radiopaque foreign body. IMPRESSION: 1. Displaced, transcervical fracture of the left femoral neck. ACT 112: Negative or not required by law. Electronically signed by: Elijah Phillip M.D. 05/26/2021 8:57 AM
[2021-05-26] MEDS ORDERED: ATENOLOL 25 MG TABLET PO SCH (09:00)
[2021-05-26] MEDS ORDERED: MEMANTINE HCL 5 MG TAB PO SCH (09:00)
[2021-05-26] MEDS ORDERED: POTASSIUM CHLORIDE / WTR 10 MEQ/100 ML PLCT IV ONE (10:00)
--- NOTE | 2021-05-26 10:05 | Orthopedic Consultation ---
Date of Service May 26, 2021 Assessment & Plan (1) Closed left hip fracture: She is npo. We will plan on taking her to the operating room today for a cemented bipolar hemiarthroplasty of the left hip. Procedure was explained to her including the risks, benefits, alternatives to surgery. He would like us to proceed with surgery today. Consent was obtained over the phone. History of Present Illness Reason for Consultation: . Requesting Physician: . Attending Physician: Amanda Blanco MD .Tabby is a 85 year old female admitted over night with a left hip fracture. She has a h/o Alzheimers disease and dementia so history was obtained mostly from the chart. She resides at [facility] in [place] with her Rory. She apparently had a fall and injured her left hip. She is complaining of left hip pain this morning. No other complaints. Allergies Allergy/AdvReac Type Severity Reaction Status Date / Time procaine [From Novocain] Allergy Verified 05/09/21 12:36 Home Medications Medication Instructions Recorded Confirmed Type atenolol 25 mg tablet 25 mg PO QAM 03/12/21 05/26/21 History atorvastatin 10 mg tablet 10 mg PO PM 03/12/21 05/26/21 History calcium carbonate 600 mg-vitamin 1 tab PO DAILY 03/12/21 05/26/21 History D3 20 mcg (800 unit) chewable tablet (Caltrate 600 plus D) donepezil 10 mg tablet 10 mg PO QPM 03/12/21 05/26/21 History lorazepam 1 mg tablet 1 mg PO QPM 03/12/21 05/26/21 History meclizine 25 mg tablet 25 mg PO Q8H PRN 03/12/21 05/26/21 History multivitamin 1 tab PO DAILY 03/12/21 05/26/21 History potassium chloride 20 mEq 20 meq PO DAILY 03/12/21 05/26/21 History tablet,extended release ondansetron HCl 4 mg tablet 4 mg PO Q8H PRN 04/01/21 05/26/21 History pantoprazole 40 mg tablet,delayed 40 mg PO BID #180 tab 04/09/21 05/26/21 Rx release loperamide 2 mg tablet 2 mg PO Q4H PRN 05/03/21 05/26/21 History memantine 5 mg tablet 5 mg PO BID 05/03/21 05/26/21 History aspirin 81 mg capsule 81 mg PO DAILY 05/09/21 05/26/21 History Past Med/Surg History Medical History Acute kidney failure Alzheimer disease Anorexia Anxiety disorder Ataxic gait Dementia Dizziness and giddiness Hyperlipidemia Hypertension Muscle weakness Surgical History Surgical history unknown Social History Smoking Status: Never smoker Second Hand Exposure: No; Hx Alcohol Use: No Hx Substance Use: No Preferred Language: Ukrainian Communication Ability: Effective Md Urologist Required: No Beliefs That Will Affect Care: None Current Living Situation: Snf Feels Safe at Home: Yes Review of Systems All systems reviewed & are unremarkable except as noted in HPI & below. Physical Exam .She is alert. No acute distress. Left leg: shortened and externally rotated. She can move her toes, dorsiflex and plantarflex. Skin appears intact around the hip. NVI Results & Data Results & Data Laboratory Results . Diagnostic Findings .xrays of the hip and pelvis show a displaced left femoral neck fracture. PG Care Time/CCT Total # of Minutes Spent Total Time Spent with Patient: Total time spent is greater than 50% in coordination of care (as documented) at patient's floor/unit and/or counseling patient: Coding Level of Care Code 08255 Inpt Consult Level 4 Diagnoses Closed left hip fracture S72.002A
[2021-05-26] MEDS ORDERED: BUPIVACAINE 0.5 % 5 MG/1 ML PF 10ML VIAL ONE (10:35)
--- NOTE | 2021-05-26 10:37 | History & Physical Bridge Note ---
Date of Service May 26, 2021 History & Physical Bridge Note I have examined the patient, reviewed the History & Physical and in the interval since the performance of the History & Physical I have noted the following changes of clinical significance: Pt having a lot of pain in her left groin area and when asked if wanted medicine for pain, she was agreeable. SHe denies chest pain or SOB, no nausea or abdominal pain. She states she does not remember what happened to cause her hip fracture. When examined, found evidence of right sided mastectomy and I asked her if she had breast CA and she said she didn't remember. VSS Tele with NSR, PACs In mild distress with pain, moaning at times RRR no mgr CTAB no wcr Abd +BS soft NT ND Ext: +TTP over left groin, LLE shortened and ext rotated, 2+ DP pulses, no edema or ecchymosis Skin no rashes 85 yo female with fall and left hip fracture With LBBB on ECG unchanged from Mar but unclear if has had cardiac workup. No chest pain or SOB reported, no evidence of CHF clinically, no murmur Medically optimized for urgent hip repair but will consider cardiac w/u for LBBB if none done previously. Will request records from her [facility]
--- NOTE | 2021-05-26 10:54 | Electrocardiogram Report ---
Test Reason : Blood Pressure : / mmHG Vent. Rate : 055 BPM Atrial Rate : 055 BPM P-R Int : 176 ms QRS Dur : 150 ms QT Int : 492 ms P-R-T Axes : 042 -11 032 degrees QTc Int : 470 ms Poor data quality, interpretation may be adversely affected Sinus bradycardia Left bundle branch block Abnormal ECG When compared with ECG of 12-MAR-2021 17:36, No significant change was found Confirmed by Sreedhar Dillard ([id number]) on 05/26/2021 10:54:12 AM Referred By: REFERRED SELF Confirmed By:Sreedhar Dillard
[2021-05-26] MEDS ORDERED: LIDOCAINE 2% 2 ML VIAL/AMP(20MG/ML) INFIL ONE (11:17)
[2021-05-26] MEDS ORDERED: PROPOFOL IV EMULSION 10 MG/ML 20 ML VIAL IV ONE (11:17)
--- NOTE | 2021-05-26 12:03 | Critical Care Consultation ---
Date of Consultation May 26, 2021 Assessment & Plan (1) Cardiac arrest: (2) Closed left hip fracture: (3) Alzheimer disease: Chest x-ray 05/26/2021: Portable film, increased vascular markings appreciated in the upper part of bilateral lungs, no other clear lung infiltrate, increased cardiac silhouette EKG 05/26/2021: Sinus rhythm, left bundle branch block, left axis deviation, no ST-T wave changes appreciated Comparing the EKG done in March 2021 no significant change --Cardiac arrest with torsades Patient does have underlying left bundle branch block Patient's electrolytes showed potassium of three-point 4 in the morning, she was given 1 round of KCl She has gotten morphine, fentanyl for the pain since the ER. She did get morphine 10:30 AM today 1520 minutes before CODE BLUE was called Patient got CPR and was defib once, 300 mg of amiodarone bolus was also given Postarrest EKG did not show any significant change compared to before. The bundle branch block persists Patient was following commands after ROSC. No indication for hypothermia --Acute hypoxic respiratory failure Likely secondary to cardiac arrest leading to mild vascular congestion O2 supplementation to keep oxygen saturation 88-92% --High anion gap Delta-delta: Negative Likely secondary to lactic acidosis Gentle IV fluids and repeat lactate in 2 hours --Left hip fracture Orthopedics on board --Prolonged QTC Avoid QT prolonging medications Keep magnesium >2, phosphorus> 3, potassium>4 --Dyslipidemia Continue with atorvastatin --Prophylaxis VTE: IPC's GI: Pantoprazole Lines: Peripheral Diet: N.p.o. Plan: Cardiology has been consulted. Keep electrolytes as discussed above Repeat potassium showed 2.4. I would repeat again stat to make sure it is true. Once the labs are drawn I will start replacement with 20 mEq of potassium and give more once repeat labs are back. Follow-up 2D echo. Hypomagnesemia being replaced Possibility of PE and/or fat embolism is a possibility Once the patient is more stable I will consider ordering a CTA. Doppler bilateral lower extremities rule out DVT ordered Family was at bedside. Son as well as son-in-law aware made aware of what happened and what the current condition is I have personally spent 68 minutes of critical care time in the direct management of this patient. This is a life/limb threatening event. This includes time spent evaluating patient, direct bedside care, chart review, placing orders, interpretation of diagnostic studies, discussion with consultants, patient, and family members, as well as other required patient management activities. This time is exclusive of all separately billable procedures, and teaching time and separate from and in addition to any other critical care service time. Please note the above document was generated using voice recognition software. It may contain grammatical, syntax or spelling errors. History of Present Illness Attending Physician: Amanda Blanco MD History of Present Illness 85-year-old female admitted to the hospital status post fall for left hip fracture Past medical history: Hypertension, dyslipidemia, dementia ER course: Fentanyl, Dilaudid, morphine, Zofran Was called on the floor in the rhythm prior to the was found to be torsade. CPR was started and patient was defibrillated. 1 amp of epi, 1 amp of bicarb was given to the patient Successful resuscitation was obtained around 1130 with strong pulse. Amiodarone 200 mg was administered bolus. Patient was awake talking and moving all the extremities. She was following commands Patient was transferred to the ICU At the time of examination patient was on high flow 20 L, 50% saturating 100% She was very uncomfortable with the nasal cannula of the high flow and was pulling it off We changed to 4 L nasal cannula and she was saturating 96-97% on it She did complain of feeling lethargic. Also complained of chest tenderness. Denies any shortness of breath Did complain of mild nausea. Abdominal pain. Left hip pain persist. Allergies Allergy/AdvReac Type Severity Reaction Status Date / Time procaine [From Novocain] Allergy Verified 05/09/21 12:36 Home Medications Medication Instructions Recorded Confirmed Type atenolol 25 mg tablet 25 mg PO QAM 03/12/21 05/26/21 History atorvastatin 10 mg tablet 10 mg PO PM 03/12/21 05/26/21 History calcium carbonate 600 mg-vitamin 1 tab PO DAILY 03/12/21 05/26/21 History D3 20 mcg (800 unit) chewable tablet (Caltrate 600 plus D) donepezil 10 mg tablet 10 mg PO QPM 03/12/21 05/26/21 History lorazepam 1 mg tablet 1 mg PO QPM 03/12/21 05/26/21 History meclizine 25 mg tablet 25 mg PO Q8H PRN 03/12/21 05/26/21 History multivitamin 1 tab PO DAILY 03/12/21 05/26/21 History potassium chloride 20 mEq 20 meq PO DAILY 03/12/21 05/26/21 History tablet,extended release ondansetron HCl 4 mg tablet 4 mg PO Q8H PRN 04/01/21 05/26/21 History pantoprazole 40 mg tablet,delayed 40 mg PO BID #180 tab 04/09/21 05/26/21 Rx release loperamide 2 mg tablet 2 mg PO Q4H PRN 05/03/21 05/26/21 History memantine 5 mg tablet 5 mg PO BID 05/03/21 05/26/21 History aspirin 81 mg capsule 81 mg PO DAILY 05/09/21 05/26/21 History Patient History Medical History Acute kidney failure Alzheimer disease Anorexia Anxiety disorder Ataxic gait Dementia Dizziness and giddiness Hyperlipidemia Hypertension Muscle weakness Surgical History Surgical history unknown Social History Smoking Status: Never smoker Second Hand Exposure: No; Hx Alcohol Use: No Hx Substance Use: No Preferred Language: Brazilian Communication Ability: Effective Juvenile Correctional Officer Required: No Beliefs That Will Affect Care: None Current Living Situation: [facility] Feels Safe at Home: Yes Review of Systems Review of Systems: All systems reviewed & are unremarkable except as noted in HPI & below Physical Exam Physical Exam: Constitutional: No acute distress HEENT: EOMI, PERRLA Respiratory system: Decreased air entry bilaterally, no wheeze, rhonchi, positive crackles bilateral lower lobes CVS: S1-S2 positive, no murmurs or gallops, it is tender to palpation especially on the lateral sides bilaterally Abdomen: Soft, nontender, nondistended, positive bowel sounds x4 Extremities: +2 pulses bilaterally radialis/ dorsalis pedis, no cyanosis, +1 edema bilateral lower extremity, shortening of the left extremity with external rotation Neuro: Awake alert oriented x3 Psych: Normal mood and affect G/U: No Bergeron Skin: no rashes, warm and dry Lymphatic: no cervical or axillary lymphadenopathy Results & Data Results & Data ([facility]) Vital Signs (Past 12 Hours) Vital Signs Temp Pulse Pulse Resp BP BP Pulse Ox 05/26/21 07:24 57 L 05/26/21 07:11 37 C 56 L 18 158/71 H 98 05/26/21 06:00 54 L 20 172/53 H 100 05/26/21 04:20 58 L 20 138/71 100 05/26/21 02:53 36.5 C 59 L 20 152/101 H 100 Laboratory Results 05/26/21 03:18 05/26/21 03:18 Coding Level of Care Code Critical Care 1st 30-74 mins Diagnoses Cardiac arrest I46.9 Closed left hip fracture S72.002A Alzheimer disease G30.9; F02.80 Time Spent (min) 68
--- NOTE | 2021-05-26 12:04 | XRay Report ---
XR chest 1V portable CLINICAL HISTORY: cardiac arrest TECHNIQUE: Single frontal radiograph of the chest was obtained. Comparison: Comparison is made to chest one view 03/12/2021 FINDINGS: Surgical clips are in the right axilla. The cardiomediastinal silhouette is stable. The lungs are michael ar. No evidence of pleural effusion or pneumothorax. IMPRESSION: No acute chest disease. ACT 112: Negative or not required by law. Electronically signed by: Kashmir Fraga M.D. 05/26/2021 12:03 PM
[2021-05-26] MEDS: PANTOprazole 40 MG TAB PO SCH ×2 (12:05→20:10)
[2021-05-26 12:06] LABS: Basophils # (auto) 0.03 K/uL (0-0.2); Basophils % (auto) 0.2 %; Eosinophils # (auto) 0.01 K/uL (0-0.5); Eosinophils % (auto) 0.1 %; Hematocrit (blood only) 34.3 % (37-47); Hemoglobin 12.2 g/dL (12.0-16.0); Immature Granulocytes # (auto) 0.22 K/uL (0.00-0.02); Immature Granulocytes % (auto) 1.2 %; Lymphocytes # (auto) 4.57 K/uL (1.2-3.4); Lymphocytes % (auto) 25.8 %; Mean Corpuscular Volume 95.5 fL (80-100); Monocytes # (auto) 0.51 K/uL (0.11-0.59); Monocytes % (auto) 2.9 %; Neutrophils # (auto) 12.36 K/uL (1.4-6.5); Neutrophils % (auto) 69.8 %; Platelet Count 209 K/uL (130-400); RDW Coefficient of Variation 13.7 % (11.5-14.5); RDW Standard Deviation 47.7 fL (36.4-46.3); Red Blood Count 3.59 M/uL (4.2-5.4)
[2021-05-26 12:08] LABS: Mean Corpuscular Hgb Conc 35.6 g/dL (32-36)
[2021-05-26] MEDS ORDERED: ICU PROTOCOL FOR HYPERGLYCEMIA PRN (12:22)
[2021-05-26 12:24] LABS: Alanine Aminotransferase 37 U/L (7-52); Albumin Globulin Ratio 1.5 (0.9-2); Albumin Level 3.5 gm/dl (3.4-5.0); Alkaline Phosphatase 66 U/L (34-104); Anion Gap 14 (3-11); Aspartate Aminotransferase 39 U/L (13-39); BUN Creatinine Ratio 15.5 (10-20); Bilirubin,Total 1.3 mg/dl (0.2-1.0); Blood Urea Nitrogen 16 mg/dl (6-23); Calcium 8.5 mg/dl (8.5-10.1); Carbon Dioxide 26 mmol/L (21-32); Chloride 105 mmol/L (98-107); Creatinine Clr Calc Pharmacy 39.6 ml/min; Est GFR (Non-African American) 49.2 ml/min; Globulin 2.4 gm/dl (2.5-4.0); Glucose 170 mg/dl (70-99(Fasting)); Magnesium 1.5 mg/dl (1.7-2.4); Potassium 2.4 mmol/L (3.5-5.1); Sodium 145 mmol/L (136-145); Total Protein 5.9 gm/dl (6.0-8.3); Troponin I < 0.03 ng/ml (0-0.04)
[2021-05-26] MEDS: MAGNESIUM SULFATE / D5W 1 GM/100 ML BAG IV SCH (12:26)
[2021-05-26] MEDS ORDERED: PERFLUTREN LIPID MICROSPHERE (DEFINITY) IV ONE (12:31)
--- NOTE | 2021-05-26 12:47 | Communication Note ---
Date of Service: May 26, 2021- 1120 AM - Cardiac arrest called as patient was reportedly unresponsive and Code blue was called. As I arrived, the electrodes and defibrillator pads were just placed on patient and CPR was in progress with BVM ventilations being provided. Once pads were on and lead changed to evaluate the rhythm via pads- CPR was held for rhythm check noted to be in wide fast irregular complex without pulse- charged to 200j and defibrillation delivered. Immediate return to CPR with administration of 1mg of Epinephrine followed by flush. 1amp Sodium HCO3 was then prepped and administered. Following ~2 min of CPR following the above the patient started to move her extremities and at 1130 was noted to have return of spontaneous circulation with strong femoral pulse noted. Amiodarone 300mg being prepared and administered. Respirations were supported with BVM, while preparing for intubation the patient awoken and was verbal. She was also appropriate at pushing the BVM from her face. Intubation preparation aborted. ECG was in process of being obtained. Patient was noted to have HR 80-90s with adequate perfusing BP > 150, RR 28 and minimally hypoxic to the high 80s low 90s. Precardiac arrest labs and information verified with patient primary RN. She received Morphine at 1030 and was having her potassium replaced via IVPB- K noted 2.4 and Mg noted 1.5- HGB/HCT stable and Bedside dextrose was 93. Pre- arrest telemetry strip reviewed and concern for questionable Torsades- magnesium ordered by guest services attendant and administered. Care was transitioned to the guest services attendant Dr. Forte for support and postresuscitation care and transfer to the ICU. ROBERTO Supervision note: I have personally seen and examined the patient and discussed and verified the prince points of the history and physical along with the plan with ROBERTO Davis with the following exceptions and/or additions: I was present during the CODE BLUE and agree with all of the above. post-ROSC, ECG obtained which showed LBBB, NSR, normal rate, prolonged QTC but otherwise unchanged. I discussed her care with Bending Machine Set Up Operator and Lard Tub Washer. No need for heart alert replacing Mag and K hold off on further amiodarone gtt due to prolonged QTc and she is now stable. Now on NC, hemodynamically stable, not requiring pressors. Transitioned care to ICU ECHO with low normal EF 50%, with LVH, no valvular issues, and dyssynchrony due to LBBB Discussed her care with her on the phone and her son at bedside
[2021-05-26] MEDS: POTASSIUM CHLORIDE / WTR 10 MEQ/100 ML PLCT IV SCH ×7 (13:12→18:28)
[2021-05-26 13:36] LABS: BUN Creatinine Ratio 14.2 (10-20); Calcium 8.5 mg/dl (8.5-10.1); Creatinine Clr Calc Pharmacy 36.1 ml/min; Phosphorus 3.6 mg/dl (2.5-4.9); Potassium 3.2 mmol/L (3.5-5.1)
[2021-05-26] MEDS ORDERED: KETOROLAC TROMETHAMINE 15 MG/ML VIAL IV ONE (14:30)
--- NOTE | 2021-05-26 14:34 | Ultrasound Report ---
US venous doppler LE BI CLINICAL HISTORY: r/o DVT TECHNIQUE: Bilateral lower extremity real-time compression venous ultrasound with Color Doppler imagi ng. Utilizing real-time ultrasonic imaging multiple real time high-resolution ultrasonic images with compression and noncompression maneuvers of the deep venous system in addition to color doppler imagi ng were performed from the common femoral vein through the proximal calf veins. COMPARISON: None available at the time of this dictation. FINDINGS: Currently there is normal compressibility of the deep venous system from the common femoral vein thro ugh the proximal calf veins. No current evidence of acute thrombosis is identified. Impression: No evidence of deep venous thrombus. ACT 112: Negative or not required by law. Electronically signed by: Kashmir Fraga M.D. 05/26/2021 2:33 PM
--- NOTE | 2021-05-26 15:19 | Communication Note ---
Date of Service: May 26, 2021 Critical CARE addendum: While in the ICU patient had 2 episodes where she went bradycardic into the high 30s and low 40s Both of the times she complained of nausea I looked at the telemetry strips during that time she seemed to go into type II [place] with possible junctional rhythm. Given the history of fall there is a high possibility she might have similar episode when she fell. Tachybradycardia syndrome could be in the differential Cardiology is already on board I will hold beta-blockers. Although in patients who has V. tach and V. fib you want beta-blockers on but given the significant bradycardia it to be tough No indication right now as the patient is hemodynamically stable for transvenous pacemaker Continue to monitor Doppler bilateral lower extremities negative for DVT Discussed with Dr. Blanco Please note the above document was generated using voice recognition software. It may contain grammatical, syntax or spelling errors.Any formal questions or concerns about the content, text or information contained within the body of this dictation should be directly addressed to the provider for clarification. Coding Level of Care Code Critical Care neno conley'adri 30 min Time Spent (min) 20
[2021-05-26] MEDS: LORazepam 1 MG TAB PO SCH (20:10)
[2021-05-26] MEDS: ATORVASTATIN 10 MG TAB PO SCH (20:10)
[2021-05-26 20:55] LABS: Potassium 4.5 mmol/L (3.5-5.1)
[2021-05-26 20:56] LABS: BUN Creatinine Ratio 15.7 (10-20); Calcium 8.5 mg/dl (8.5-10.1); Est GFR (African American) 57.7 ml/min; Est GFR (Non-African American) 49.8 ml/min
[2021-05-26] MEDS ORDERED: DOCUSATE SODIUM/SENNA 50/8.6MG TAB PO SCH (21:00)
[2021-05-26] MEDS ORDERED: DONEPEZIL HCL 10 MG TAB PO SCH (21:00)
[2021-05-26] MEDS ORDERED: fentaNYL citrate 100 MCG/2 ML VIAL IV ONE (23:22)
[2021-05-26] MEDS ORDERED: fentaNYL citrate 100 MCG/2 ML VIAL ONE (23:25)
[2021-05-27] MEDS ORDERED: ATROPINE SULFATE 0.1 MG/ML 10ML SYR IV ONE (00:24)
[2021-05-27] MEDS ORDERED: Flu Vaccine-High Dose (Fluzone-HD) PF 65+ 0.7mL SYR IM ONE (01:30)
[2021-05-27] MEDS ORDERED: PNEUMOCOCCAL Polysaccharide Vaccine 25mcg/0.5mL vial/Syr IM ONE (01:30)
[2021-05-27 05:15] LABS: Basophils # (auto) 0.01 K/uL (0-0.2); Basophils % (auto) 0.1 %; Eosinophils # (auto) 0.01 K/uL (0-0.5); Eosinophils % (auto) 0.1 %; Hematocrit (blood only) 31.9 % (37-47); Hemoglobin 10.9 g/dL (12.0-16.0); Immature Granulocytes # (auto) 0.02 K/uL (0.00-0.02); Immature Granulocytes % (auto) 0.2 %; Lymphocytes # (auto) 1.37 K/uL (1.2-3.4); Lymphocytes % (auto) 11.2 %; Mean Corpuscular Hemoglobin 33.3 pg (25-34); Mean Corpuscular Hgb Conc 34.2 g/dL (32-36); Mean Corpuscular Volume 97.6 fL (80-100); Mean Platelet Volume 10.7 fL (7.4-10.4); Monocytes # (auto) 0.66 K/uL (0.11-0.59); Monocytes % (auto) 5.4 %; Platelet Count 149 K/uL (130-400); RDW Coefficient of Variation 14.3 % (11.5-14.5); Red Blood Count 3.27 M/uL (4.2-5.4); White Blood Count 12.27 K/uL (4.8-10.8)
[2021-05-27 05:38] LABS: Albumin Level 3.2 gm/dl (3.4-5.0); BUN Creatinine Ratio 17.9 (10-20); Bilirubin Direct 0.2 mg/dl (0-0.2); Bilirubin,Total 1.3 mg/dl (0.2-1.0); Calcium 8.5 mg/dl (8.5-10.1); Creatinine Clr Calc Pharmacy 38.5 ml/min; Est GFR (African American) 55.1 ml/min; Est GFR (Non-African American) 47.5 ml/min; Magnesium 1.9 mg/dl (1.7-2.4); Phosphorus 3.3 mg/dl (2.5-4.9); Potassium 4.1 mmol/L (3.5-5.1); Total Protein 5.4 gm/dl (6.0-8.3)
[2021-05-27] MEDS ORDERED: MAGNESIUM SULFATE / D5W 1 GM/100 ML BAG IV ONE (06:36)
--- NOTE | 2021-05-27 09:11 | Orthopedic Consultation ---
Date of Service May 27, 2021 Assessment & Plan (1) Fracture of hip, left, closed: Surgery has been postponed due to cardiac arrest at this point. We are awaiting cardiology recommendations and will proceed with hip surgery when indicated. History of Present Illness Reason for Consultation: . Requesting Physician: . Attending Physician: Amanda Blanco MD .85 year old with left femoral neck fracture. She was on the OR schedule yesterday but was cancelled due to her cardiac arrest. She is int he ICU. She denies pain. Allergies Allergy/AdvReac Type Severity Reaction Status Date / Time procaine [From Novocain] Allergy Verified 05/09/21 12:36 Home Medications Medication Instructions Recorded Confirmed Type atenolol 25 mg tablet 25 mg PO QAM 03/12/21 05/26/21 History atorvastatin 10 mg tablet 10 mg PO PM 03/12/21 05/26/21 History calcium carbonate 600 mg-vitamin 1 tab PO DAILY 03/12/21 05/26/21 History D3 20 mcg (800 unit) chewable tablet (Caltrate 600 plus D) donepezil 10 mg tablet 10 mg PO QPM 03/12/21 05/26/21 History lorazepam 1 mg tablet 1 mg PO QPM 03/12/21 05/26/21 History meclizine 25 mg tablet 25 mg PO Q8H PRN 03/12/21 05/26/21 History multivitamin 1 tab PO DAILY 03/12/21 05/26/21 History potassium chloride 20 mEq 20 meq PO DAILY 03/12/21 05/26/21 History tablet,extended release ondansetron HCl 4 mg tablet 4 mg PO Q8H PRN 04/01/21 05/26/21 History pantoprazole 40 mg tablet,delayed 40 mg PO BID #180 tab 04/09/21 05/26/21 Rx release loperamide 2 mg tablet 2 mg PO Q4H PRN 05/03/21 05/26/21 History memantine 5 mg tablet 5 mg PO BID 05/03/21 05/26/21 History aspirin 81 mg capsule 81 mg PO DAILY 05/09/21 05/26/21 History Past Med/Surg History Medical History Acute kidney failure Alzheimer disease Anorexia Anxiety disorder Ataxic gait Dementia Dizziness and giddiness Hyperlipidemia Hypertension Muscle weakness Surgical History Surgical history unknown Social History Smoking Status: Never smoker Second Hand Exposure: No; Hx Alcohol Use: No Hx Substance Use: No Preferred Language: Yoruba Communication Ability: Effective Commercial Leasing Manager Required: No Beliefs That Will Affect Care: None Current Living Situation: Senior Living Feels Safe at Home: Yes Assistive Devices: Oxygen - Continuous Review of Systems All systems reviewed & are unremarkable except as noted in HPI & below. Physical Exam .She is awake, alert, NAD. Left leg: shortened and externally rotated. NVI. Able to dorsiflex and plantarflex. Results & Data Results & Data Laboratory Results . Diagnostic Findings . PG Care Time/CCT Total # of Minutes Spent Total Time Spent with Patient: Total time spent is greater than 50% in coordination of care (as documented) at patient's floor/unit and/or counseling patient: Coding Level of Care Code None Diagnoses Fracture of hip, left, closed S72.002A Encounter type: initial encounter (1) Fracture of hip, left, closed Encounter type: initial encounter Qualified Code(s): S72.002A - Fracture of unspecified part of neck of left femur, initial encounter for closed fracture
[2021-05-27] MEDS ORDERED: HEPARIN SOD 5,000 UNIT/0.5 ML VIAL SQ SCH (09:45)
--- NOTE | 2021-05-27 10:12 | XCELERA ---
[id number]
--- NOTE | 2021-05-27 10:37 | Cardiology Consultation ---
Date of Consultation May 27, 2021 Assessment & Plan (1) Torsades de pointes: -likely secondary to hypokalemia and hypomagnesemia in the face of structural heart disease (severe LVH). -she also received fentanyl in the ER which can cause QT prolongation. -memantine and donepezil can also cause QT prolongation. -Torsades is most common in elderly females. -continue to monitor potassium and magnesium levels. -no further cardiac evaluation necessary. (2) Hypertension: -adequate control currently. (3) Hyperlipidemia: -continue atorvastatin. (4) Encounter for pre-operative examination: -acceptable cardiac risk for surgery without further testing. History of Present Illness Attending Physician: Amanda Blanco MD History of Present Illness Mrs. Zambrano is an 85-year-old female admitted yesterday with a left hip fracture. She experienced an episode of sustained torsades de pointes resulting in a cardiac arrest. This consultation was ordered to assist in cardiac. The patient was in her usual state of health until the self defense instructor hours of May 26 when she fell out of bed fractured her left hip. She was brought to the emergency room for evaluation and was given several analgesics including intravenous fentanyl. She was admitted to the telemetry unit. At approximately 11:20 a.m., the patient developed a sustained episode of torsades de pointes and arrested. She received CPR followed by a defibrillation along with intravenous amiodarone. Fortunately, the patient was fully resuscitated. Laboratory studies performed during the resuscitation noted hypokalemia (3.4), and hypomagnesemia (1.5). The patient has never known of a cardiac event, however, her history is limited by her significant dementia. She did have a preprocedure EKG performed on March 12 which noted a complete left bundle-branch block. Currently, patient is resting comfortably in bed without complaints. Past medical and surgical history 1. Hypertension 2. Hypercholesterolemia 3. LBBB 4. GERD 5. Hiatal hernia 6. Alzheimer's dementia 7. Presume right-sided breast cancer 8. Right mastectomy Social history Resident in the dementia unit at [facility]. No tobacco alcohol Family history Unobtainable Review of systems A 10 review systems was undertaken and negative except for that described above. Allergies Allergy/AdvReac Type Severity Reaction Status Date / Time procaine [From Novocain] Allergy Verified 05/09/21 12:36 Home Medications Medication Instructions Recorded Confirmed Type atenolol 25 mg tablet 25 mg PO QAM 03/12/21 05/26/21 History atorvastatin 10 mg tablet 10 mg PO PM 03/12/21 05/26/21 History calcium carbonate 600 mg-vitamin 1 tab PO DAILY 03/12/21 05/26/21 History D3 20 mcg (800 unit) chewable tablet (Caltrate 600 plus D) donepezil 10 mg tablet 10 mg PO QPM 03/12/21 05/26/21 History lorazepam 1 mg tablet 1 mg PO QPM 03/12/21 05/26/21 History meclizine 25 mg tablet 25 mg PO Q8H PRN 03/12/21 05/26/21 History multivitamin 1 tab PO DAILY 03/12/21 05/26/21 History potassium chloride 20 mEq 20 meq PO DAILY 03/12/21 05/26/21 History tablet,extended release ondansetron HCl 4 mg tablet 4 mg PO Q8H PRN 04/01/21 05/26/21 History pantoprazole 40 mg tablet,delayed 40 mg PO BID #180 tab 04/09/21 05/26/21 Rx release loperamide 2 mg tablet 2 mg PO Q4H PRN 05/03/21 05/26/21 History memantine 5 mg tablet 5 mg PO BID 05/03/21 05/26/21 History aspirin 81 mg capsule 81 mg PO DAILY 05/09/21 05/26/21 History Patient History Medical History Acute kidney failure Alzheimer disease Anorexia Anxiety disorder Ataxic gait Dementia Dizziness and giddiness Hyperlipidemia Hypertension Muscle weakness Surgical History Surgical history unknown Social History Smoking Status: Never smoker Second Hand Exposure: No; Hx Alcohol Use: No Hx Substance Use: No Preferred Language: [place] Citizen Communication Ability: Effective Microbiology Lab Technician Required: No Beliefs That Will Affect Care: None Current Living Situation: Longterm Feels Safe at Home: Yes Assistive Devices: Oxygen - Continuous Physical Exam Physical Exam: In general is well-developed well-nourished white female in no acute distress. HEENT exam is negative. Neck is supple with full carotid upstrokes. There are no carotid bruits. Jugular is pressure is flat at 90. There is no thyromegaly. Cardiovascular exam reveals a regular rhythm with distant heart sounds. No obvious murmurs. No S3 or S4. Lungs are clear without rales, rhonchi or wheezes. Chest reveals a right-sided mastectomy and tenderness to palpation in the right parasternal region. Results & Data ([facility]) Vital Signs (Past 12 Hours) Vital Signs Temp Pulse Pulse Resp BP Pulse Ox Pulse Ox 05/27/21 08:00 58 L 21 131/54 L 94 05/27/21 07:38 58 L 16 98 05/27/21 07:00 59 L 16 136/53 L 98 05/27/21 06:00 58 L 15 128/50 L 97 05/27/21 05:00 60 16 120/48 L 97 05/27/21 04:00 64 19 126/51 L 98 05/27/21 03:00 60 25 H 97 99 05/27/21 02:00 61 17 126/47 L 97 05/27/21 01:01 64 17 124/55 L 98 05/27/21 01:00 68 19 98 05/27/21 00:00 37 C 61 24 137/55 L 98 05/26/21 23:01 37 C 71 21 138/82 05/26/21 23:00 73 28 H 86 L 98 05/26/21 22:57 70 Laboratory Results CBC notes hemoglobin of 10.9, hematocrit 31.9, white count 12.2, and platelet count 149 1000. Electrolytes note a sodium of 138, potassium 4.1, chloride 108, bicarb 26, BUN 19, creatinine 1.06, and glucose of 114. magnesium level was d ecreased at 1.5 but is now up to 1.9. Troponin I levels undetectable less than 0.03. BNP is normal at 886. Diagnostic Findings EKG notes sinus bradycardia and a complete left bundle-branch block. There is a left axis deviation. Chest x-ray shows no acute disease. Echocardiogram notes ejection fraction of 50% with severe left ventricular hypertrophy. There is no left ventricular outflow tract obstruction. PG Care Time/CCT Total # of Minutes Spent Total Time Spent with Patient: Total time spent is greater than 50% in coordination of care (as documented) at patient's floor/unit and/or counseling patient: Coding Level of Care Code 11905 Initial Inpt Care Lvl 3 Diagnoses Torsades de pointes I47.2 Hypertension I10 Hyperlipidemia E78.5 Encounter for pre-operative examination Z01.818
--- NOTE | 2021-05-27 11:16 | Hospitalist Progress Note ---
Date of Service May 27, 2021 Assessment & Plan (1) Cardiac arrest: Plan: Admitted for left hip fracture and had cardiac arrest secondary to Torsades de pointes, prolonged QTc, hypomagnesemia, hypokalemia approximately 8 hours after admission Received CPR, 1 shock, 1 mg epi, amiodarone 300mg x 1, sodium bicarb, 2 grams IV mag. Fortunately after ROSC she was awake and yelling, moving all extremities, did not require intubation Transferred to ICU on 05/26 after arrest Lytes all repleted Having some brief bradycardia events on tele with possible AV block vs junctional, related to vagal tone? Associated with nausea ECHO with significant LVH, EF low normal at 50%, otherwise ok Appreciate Cardiology consult no heart alert needed LBBB is old but has never been evaluated continue tele monitoring hold atenolol hold all QT prolonging meds eg ZOfran, Donepezil, memantine Stable for downgrade out of ICU later in the day as per certified low vision therapist Discussed with cardiology-okay to go ahead with hip repair today (2) Torsades de pointes: Plan: as above, replaced lytes, monitor on tele, dc QT prlonging meds Follow BMP, magnesium and replace as needed (3) Bradycardia: Plan: With several episodes of what might be brief complete heart block associated with nausea Likely increased vagal tone contributing as per cardiology Monitor on telemetry Hold atenolol (4) Closed left hip fracture: Plan: Status post fall possibly out of bed, but history not clear Going for hip repair today Pain control, bowel regimen postoperatively will be needed Follow CBC, BMP DVT prophylaxis per orthopedics (5) Hypomagnesemia: Plan: Improved today after replacement, with torsades as above Follow mag level in the morning (6) Hypokalemia: Plan: Improved today after replacement yesterday Follow BMP, magnesium (7) Dementia: Plan: Frequent orientation Hold or discontinue Aricept and Memantine due to QT prolongation and torsades (8) LBBB (left bundle branch block): Plan: Chronically since March No work-up previously done as far as the is aware Echocardiogram here with low normal EF status post cardiac arrest and severe LVH No wall motion abnormalities (9) Hypertension: Plan: Blood pressures are fairly well controlled Holding atenolol for bradycardia Could add on lisinopril if needed (10) Hyperlipidemia: Plan: Chronic -Continue Atorvastatin (11) GERD (gastroesophageal reflux disease): Plan: Chronic. Patient had an EGD performed on 05/09/21 which revealed a small hiatal hernia and gastritis which was biopsied. -Continue Protonix BID (12) Alzheimer disease: Plan: Supportive care Plan: Ppx - SCD, aspirin twice daily postop Code - Full per discussion with patient Dispo -continued stay in ICU, downgrade to PCU later if stable Called her and discussed care with him on the phone Admission and Anticipated Discharge Date Admission Date: May 26, 2021 Subjective Pt denies pain today in hip. Denies chest pain but then has tenderness of chest wall on palpation. She does not recall why she is in the hospital or any events of her cardiac arrest yesterday. Tele with 3 episodes of fanny to the 30s possibly with 2nd degree block, all brief and associated with some nausea as per nursing. None since midnight last night. Otherwise with NSR and normal rates Pt does know that she is in a hospital, but doesn't know where or why. Review of Systems Review of Systems: All systems reviewed & are unremarkable except as noted in HPI & below Physical Exam Constitutional: WD/WN, vitals as above Eyes: + anicteric sclerae ENMT: external ear and nose normal, oropharynx normal Neck: trachea midline, no thyromegaly Respiratory: normal respiratory effort, lungs clear to auscultation Cardiovascular: RRR, no murmur, no edema Chest (Breasts): Chest: + abnormal inspection of chest (and +TTP over sternum) Breast: + abnormal inspection of breast (right mastectomy) Gastrointestinal (Abdomen): normal bowel sounds, soft, nontender, no hepatosplenomegaly Musculoskeletal: Extremities: + extremities abnormal to inspection (LLE ext rotated and shortened), no cyanosis and no clubbing Skin: no rashes, warm and dry Neurologic: awake and + confused; no focal motor deficits (moves all extremities) Speech / Cognition: + abnormal cognition; no expressive aphasia Psychiatric: Orientation: alert, oriented to person, oriented to place and cooperative Genitourinary: [place] with clear yellow urine Lymphatic: no lymphedema Results & Data Results & Data ([facility]) Vital Signs (Past 12 Hours) Vital Signs Temp Pulse Pulse Resp BP Pulse Ox Pulse Ox 05/27/21 08:00 58 L 21 131/54 L 94 05/27/21 07:38 58 L 16 98 05/27/21 07:00 59 L 16 136/53 L 98 05/27/21 06:00 58 L 15 128/50 L 97 05/27/21 05:00 60 16 120/48 L 97 05/27/21 04:00 64 19 126/51 L 98 05/27/21 03:00 60 25 H 97 99 05/27/21 02:00 61 17 126/47 L 97 05/27/21 01:01 64 17 124/55 L 98 05/27/21 01:00 68 19 98 05/27/21 00:00 37 C 61 24 137/55 L 98 Laboratory Results 05/27/21 05/27/21 05/26/21 Range/Units 05:05 05:05 20:20 WBC 12.27 H (4.8-10.8) K/uL RBC 3.27 L (4.2-5.4) M/uL Hgb 10.9 L (12.0-16.0) g/dL Hct 31.9 L (37-47) % MCV 97.6 (80-100) fL MCH 33.3 (25-34) pg MCHC 34.2 (32-36) g/dL RDW Std Deviation 51.0 H (36.4-46.3) fL RDW Coeff of Ria 14.3 (11.5-14.5) % Plt Count 149 (130-400) K/uL MPV 10.7 H (7.4-10.4) fL Immature Gran % (Auto) 0.2 % Neut % (Auto) 83.0 % Lymph % (Auto) 11.2 % [place] % (Auto) 5.4 % Eos % (Auto) 0.1 % Baso % (Auto) 0.1 % Neut # (Auto) 10.20 H (1.4-6.5) K/uL Lymph # (Auto) 1.37 (1.2-3.4) K/uL [place] # (Auto) 0.66 H (0.11-0.59) K/uL Eos # (Auto) 0.01 (0-0.5) K/uL Baso # (Auto) 0.01 (0-0.2) K/uL Immature Gran # (Auto) 0.02 (0.00-0.02) K/uL Sodium 138 138 (136-145) mmol/L Potassium 4.1 4.5 D (3.5-5.1) mmol/L Chloride 108 H 106 (98-107) mmol/L Carbon Dioxide 26 27 (21-32) mmol/L Anion Gap 4 5 (3-11) BUN 19 16 (6-23) mg/dl Creatinine 1.06 1.02 (0.6-1.2) mg/dl Est Cr Clr Drug Dosing 38.5 40.0 ml/min Est GFR ( Amer) 55.1 57.7 ml/min Est GFR (Non-Af Amer) 47.5 49.8 ml/min BUN/Creatinine Ratio 17.9 15.7 (10-20) Glucose 114 H 131 H (70-99(Fasting)) mg/dl POC Glucose (70-99) mg/dl Lactate (0.4-2.0) mmol/L Calcium 8.5 8.5 (8.5-10.1) mg/dl Phosphorus 3.3 (2.5-4.9) mg/dl Magnesium 1.9 (1.7-2.4) mg/dl Total Bilirubin 1.3 H (0.2-1.0) mg/dl Direct Bilirubin 0.2 (0-0.2) mg/dl AST 29 (13-39) U/L ALT 28 (7-52) U/L Alkaline Phosphatase 52 (34-104) U/L Troponin I (0-0.04) ng/ml Total Protein 5.4 L (6.0-8.3) gm/dl Albumin 3.2 L (3.4-5.0) gm/dl Globulin (2.5-4.0) gm/dl Albumin/Globulin Ratio (0.9-2) Nasal Screen MRSA (PCR) (Negative) 05/26/21 05/26/21 05/26/21 Range/Units 13:44 12:50 12:50 WBC (4.8-10.8) K/uL RBC (4.2-5.4) M/uL Hgb (12.0-16.0) g/dL Hct (37-47) % MCV (80-100) fL MCH (25-34) pg MCHC (32-36) g/dL RDW Std Deviation (36.4-46.3) fL RDW Coeff of Ria (11.5-14.5) % Plt Count (130-400) K/uL MPV (7.4-10.4) fL Immature Gran % (Auto) % Neut % (Auto) % Lymph % (Auto) % [place] % (Auto) % Eos % (Auto) % Baso % (Auto) % Neut # (Auto) (1.4-6.5) K/uL Lymph # (Auto) (1.2-3.4) K/uL [place] # (Auto) (0.11-0.59) K/uL Eos # (Auto) (0-0.5) K/uL Baso # (Auto) (0-0.2) K/uL Immature Gran # (Auto) (0.00-0.02) K/uL Sodium 142 (136-145) mmol/L Potassium 3.2 L D (3.5-5.1) mmol/L Chloride 106 (98-107) mmol/L Carbon Dioxide 27 (21-32) mmol/L Anion Gap 9 (3-11) BUN 16 (6-23) mg/dl Creatinine 1.13 (0.6-1.2) mg/dl Est Cr Clr Drug Dosing 36.1 ml/min Est GFR ( Amer) 51.0 ml/min Est GFR (Non-Af Amer) 44.0 ml/min BUN/Creatinine Ratio 14.2 (10-20) Glucose 223 H (70-99(Fasting)) mg/dl POC Glucose (70-99) mg/dl Lactate 2.8 H* (0.4-2.0) mmol/L Calcium 8.5 (8.5-10.1) mg/dl Phosphorus 3.6 (2.5-4.9) mg/dl Magnesium 2.6 H (1.7-2.4) mg/dl Total Bilirubin (0.2-1.0) mg/dl Direct Bilirubin (0-0.2) mg/dl AST (13-39) U/L ALT (7-52) U/L Alkaline Phosphatase (34-104) U/L Troponin I (0-0.04) ng/ml Total Protein (6.0-8.3) gm/dl Albumin (3.4-5.0) gm/dl Globulin (2.5-4.0) gm/dl Albumin/Globulin Ratio (0.9-2) Nasal Screen MRSA (PCR) (Negative) 05/26/21 05/26/21 05/26/21 Range/Units 12:00 11:45 11:45 WBC (4.8-10.8) K/uL RBC (4.2-5.4) M/uL Hgb (12.0-16.0) g/dL Hct (37-47) % MCV (80-100) fL MCH (25-34) pg MCHC (32-36) g/dL RDW Std Deviation (36.4-46.3) fL RDW Coeff of Ria (11.5-14.5) % Plt Count (130-400) K/uL MPV (7.4-10.4) fL Immature Gran % (Auto) % Neut % (Auto) % Lymph % (Auto) % [place] % (Auto) % Eos % (Auto) % Baso % (Auto) % Neut # (Auto) (1.4-6.5) K/uL Lymph # (Auto) (1.2-3.4) K/uL [place] # (Auto) (0.11-0.59) K/uL Eos # (Auto) (0-0.5) K/uL Baso # (Auto) (0-0.2) K/uL Immature Gran # (Auto) (0.00-0.02) K/uL Sodium 145 (136-145) mmol/L Potassium 2.4 L* D (3.5-5.1) mmol/L Chloride 105 (98-107) mmol/L Carbon Dioxide 26 (21-32) mmol/L Anion Gap 14 H (3-11) BUN 16 (6-23) mg/dl Creatinine 1.03 (0.6-1.2) mg/dl Est Cr Clr Drug Dosing 39.6 ml/min Est GFR ( Amer) 57.0 ml/min Est GFR (Non-Af Amer) 49.2 ml/min BUN/Creatinine Ratio 15.5 (10-20) Glucose 170 H (70-99(Fasting)) mg/dl POC Glucose (70-99) mg/dl Lactate 6.8 H* (0.4-2.0) mmol/L Calcium 8.5 (8.5-10.1) mg/dl Phosphorus (2.5-4.9) mg/dl Magnesium 1.5 L (1.7-2.4) mg/dl Total Bilirubin 1.3 H (0.2-1.0) mg/dl Direct Bilirubin (0-0.2) mg/dl AST 39 (13-39) U/L ALT 37 (7-52) U/L Alkaline Phosphatase 66 (34-104) U/L Troponin I < 0.03 (0-0.04) ng/ml Total Protein 5.9 L (6.0-8.3) gm/dl Albumin 3.5 (3.4-5.0) gm/dl Globulin 2.4 L (2.5-4.0) gm/dl Albumin/Globulin Ratio 1.5 (0.9-2) Nasal Screen MRSA (PCR) Negative (Negative) 05/26/21 05/26/21 05/26/21 Range/Units 11:45 11:40 10:45 WBC 17.70 H (4.8-10.8) K/uL RBC 3.59 L (4.2-5.4) M/uL Hgb 12.2 (12.0-16.0) g/dL Hct 34.3 L (37-47) % MCV 95.5 (80-100) fL MCH 34.0 (25-34) pg MCHC 35.6 (32-36) g/dL RDW Std Deviation 47.7 H (36.4-46.3) fL RDW Coeff of Ria 13.7 (11.5-14.5) % Plt Count 209 (130-400) K/uL MPV 11.0 H (7.4-10.4) fL Immature Gran % (Auto) 1.2 % Neut % (Auto) 69.8 % Lymph % (Auto) 25.8 % [place] % (Auto) 2.9 % Eos % (Auto) 0.1 % Baso % (Auto) 0.2 % Neut # (Auto) 12.36 H (1.4-6.5) K/uL Lymph # (Auto) 4.57 H (1.2-3.4) K/uL [place] # (Auto) 0.51 (0.11-0.59) K/uL Eos # (Auto) 0.01 (0-0.5) K/uL Baso # (Auto) 0.03 (0-0.2) K/uL Immature Gran # (Auto) 0.22 H (0.00-0.02) K/uL Sodium (136-145) mmol/L Potassium (3.5-5.1) mmol/L Chloride (98-107) mmol/L Carbon Dioxide (21-32) mmol/L Anion Gap (3-11) BUN (6-23) mg/dl Creatinine (0.6-1.2) mg/dl Est Cr Clr Drug Dosing ml/min Est GFR ( Amer) ml/min Est GFR (Non-Af Amer) ml/min BUN/Creatinine Ratio (10-20) Glucose (70-99(Fasting)) mg/dl POC Glucose 96 (70-99) mg/dl Lactate (0.4-2.0) mmol/L Calcium (8.5-10.1) mg/dl Phosphorus (2.5-4.9) mg/dl Magnesium (1.7-2.4) mg/dl Total Bilirubin (0.2-1.0) mg/dl Direct Bilirubin (0-0.2) mg/dl AST (13-39) U/L ALT (7-52) U/L Alkaline Phosphatase (34-104) U/L Troponin I (0-0.04) ng/ml Total Protein (6.0-8.3) gm/dl Albumin (3.4-5.0) gm/dl Globulin (2.5-4.0) gm/dl Albumin/Globulin Ratio (0.9-2) Nasal Screen MRSA (PCR) Negative (Negative) PG Care Time/CCT Total # of Minutes Spent Total Time Spent with Patient: Total time spent is greater than 50% in coordination of care (as documented) at patient's floor/unit and/or counseling patient: Coding Level of Care Code 49129 Subseq Hosp Care Lvl 3 Diagnoses Closed left hip fracture S72.002A Dementia F03.90 Hypertension I10 Hyperlipidemia E78.5 GERD (gastroesophageal reflux disease) K21.9 Cardiac arrest I46.9 Torsades de pointes I47.2 LBBB (left bundle branch block) I44.7 Alzheimer disease G30.9; F02.80 Hypomagnesemia E83.42 Hypokalemia E87.6 Bradycardia R00.1
--- NOTE | 2021-05-27 11:59 | Electrocardiogram Report ---
Test Reason : Blood Pressure : / mmHG Vent. Rate : 077 BPM Atrial Rate : 077 BPM P-R Int : 192 ms QRS Dur : 144 ms QT Int : 482 ms P-R-T Axes : 060 -63 110 degrees QTc Int : 545 ms Normal sinus rhythm Left axis deviation Left bundle branch block Abnormal ECG When compared with ECG of 26-MAY-2021 03:02, QRS axis Shifted left T wave inversion now evident in Lateral leads QT has lengthened Confirmed by Sreedhar Dillard ([id number] on 05/27/2021 11:59:17 AM Referred By: REFERRED SELF Confirmed By:Sreedhar Dillard
--- NOTE | 2021-05-27 12:08 | Critical Care Progress Note ---
Date of Service May 27, 2021 Assessment & Plan (1) Torsades de pointes: (2) Cardiac arrest: (3) Fracture of hip, left, closed: (4) Hypomagnesemia: (5) Hypokalemia: Plan: Impression: 85-year-old female with dementia status post hip fracture after fall. She is on the floor awaiting operative repair when she suffered torsades arrest. She responded to CPR and defibrillation. Her neurological status is at baseline. She is hemodynamically stable. 24-hour events: Cardiac arrest on the floor. Did not require intubation as mental status improved after she was defibrillated. She received aggressive electrolyte replacement. Cardiology consultation completed this morning and I discussed with him at bedside. She is without complaint this morning. Recommendations: 1. Neurologic: Baseline dementia. Continue to follow clinically. Avoid medications which could potentiate her dementia. 2. Cardiovascular: Torsades. Suspect this is multifactorial due to age, LVH, medications etc.. Holding beta-melissa for now given her tachybradycardia. Avoid any additional medications known to contribute to QT prolongation. Per cardiology, the patient does not require additional evaluation prior to undergoing operative repair of her hip fracture. Will continue telemetry and continue electrolyte replacement. Will place on low-dose of IV fluid replacement as she is n.p.o. for now. If for diet is resumed, IV fluids can be discontinued. Patient did have a lactic acidosis periarrest which appears to be resolving. No indication for additional lab values currently. 3. Pulmonary: No current issues. Continue to follow. Wean oxygen as tolerated. 4. GI: N.p.o. for now until we see whether or not she is going to the OR today. If orthopedics does not plan on intervening today, patient can likely resume her diet. 5. Renal: Multiple electrolyte abnormalities. These are being replaced. Continue to follow clinically. 6. ID: No current issues. Continue to follow clinically. 7. Endocrine: Glycemic control per protocol. 8. Heme-onc: Mild anemia. No indication for transfusion currently. Continue to follow. White count mildly elevated although this may be stress response. This point time the patient is stable to transfer out of the ICU. will defer additional evaluation to the admitting hospitalists. Admission and Anticipated Discharge Date Admission Date: May 26, 2021 Subjective Patient seen and examined. EMR reviewed. Discussed with off going channel account manager as well as with overnight critical care GENNY. Discussed on multidisciplinary rounds. Patient is awake and alert. She is hemodynamically stable. She is on minimal amount of oxygen. She denies any complaints although she does have some pain with palpation of her anterior chest. She has had occasional episodes of bradycardia. Cardiology consultation completed today. Review of Systems Review of Systems: Unobtainable due to cognitive status Physical Exam Constitutional: WD/WN, vitals as above Respiratory: normal respiratory effort, lungs clear to auscultation Cardiovascular: RRR, no murmur, no edema Chest (Breasts): Additional Comments: Tender to palpation in the anterior chest Gastrointestinal (Abdomen): normal bowel sounds, soft, nontender, no hepatosplenomegaly Musculoskeletal: no lower extremity edema Results & Data Results & Data ([facility]) Vital Signs (Past 12 Hours) Vital Signs Temp Pulse Pulse Resp BP Pulse Ox Pulse Ox 05/27/21 08:00 58 L 21 131/54 L 94 05/27/21 07:38 58 L 16 98 05/27/21 07:00 59 L 16 136/53 L 98 05/27/21 06:00 58 L 15 128/50 L 97 05/27/21 05:00 60 16 120/48 L 97 05/27/21 04:00 64 19 126/51 L 98 05/27/21 03:00 60 25 H 97 99 05/27/21 02:00 61 17 126/47 L 97 05/27/21 01:01 64 17 124/55 L 98 05/27/21 01:00 68 19 98 05/27/21 00:00 37 C 61 24 137/55 L 98 Critical Care Results & Data Vital Signs (Past 12 Hours) Vital Signs Pulse Pulse Resp BP Pulse Ox Pulse Ox 05/27/21 08:00 58 L 21 131/54 L 94 05/27/21 07:38 58 L 16 98 05/27/21 07:00 59 L 16 136/53 L 98 05/27/21 06:00 58 L 15 128/50 L 97 05/27/21 05:00 60 16 120/48 L 97 05/27/21 04:00 64 19 126/51 L 98 05/27/21 03:00 60 25 H 97 99 05/27/21 02:00 61 17 126/47 L 97 05/27/21 01:01 64 17 124/55 L 98 05/27/21 01:00 68 19 98 Lab & Micro Results (Past 24 Hours) RBC 3.27 M/uL (4.2-5.4) L 05/27/21 WBC 12.27 K/uL (4.8-10.8) H 05/27/21 Hgb 10.9 g/dL (12.0-16.0) L 05/27/21 Hct 31.9 % (37-47) L 05/27/21 MCV 97.6 fL (80-100) 05/27/21 MCH 33.3 pg (25-34) 05/27/21 MCHC 34.2 g/dL (32-36) 05/27/21 RDW Standard Deviation 51.0 fL (36.4-46.3) H 05/27/21 RDW Coefficient of Variation 14.3 % (11.5-14.5) 05/27/21 Plt Count 149 K/uL (130-400) 05/27/21 MPV 10.7 fL (7.4-10.4) H 05/27/21 Neutrophils (%) (Auto) 83.0 % 05/27/21 Lymphocytes (%) (Auto) 11.2 % 05/27/21 Monocytes # (Auto) 0.66 K/uL (0.11-0.59) H 05/27/21 Eosinophils # (Auto) 0.01 K/uL (0-0.5) 05/27/21 Immature Granulocyte % (Auto) 0.2 % 05/27/21 Neutrophils # (Auto) 10.20 K/uL (1.4-6.5) H 05/27/21 Lymphocytes # (Auto) 1.37 K/uL (1.2-3.4) 05/27/21 Monocytes # (Auto) 0.66 K/uL (0.11-0.59) H 05/27/21 Eosinophils # (Auto) 0.01 K/uL (0-0.5) 05/27/21 Basophils # (Auto) 0.01 K/uL (0-0.2) 05/27/21 Immature Granulocyte # (Auto) 0.02 K/uL (0.00-0.02) 05/27/21 Na 138 mmol/L (136-145) 05/27/21 K 4.1 mmol/L (3.5-5.1) 05/27/21 Cl 108 mmol/L (98-107) H 05/27/21 CO2 26 mmol/L (21-32) 05/27/21 Anion Gap 4 (3-11) 05/27/21 BUN 19 mg/dl (6-23) 05/27/21 Creatinine 1.06 mg/dl (0.6-1.2) 05/27/21 Estimated GFR ( Amer) 55.1 ml/min 05/27/21 Estimated GFR (Non-Af Amer) 47.5 ml/min 05/27/21 BUN/Creatinine Ratio 17.9 (10-20) 05/27/21 Glu 114 mg/dl (70-99(Fasting)) H 05/27/21 Ca 8.5 mg/dl (8.5-10.1) 05/27/21 Phosphorus Level 3.3 mg/dl (2.5-4.9) 05/27/21 Total Bilirubin 1.3 mg/dl (0.2-1.0) H 05/27/21 Direct Bilirubin 0.2 mg/dl (0-0.2) 05/27/21 AST 29 U/L (13-39) 05/27/21 ALT 28 U/L (7-52) 05/27/21 Alkaline Phosphatase 52 U/L (34-104) 05/27/21 TP 5.4 gm/dl (6.0-8.3) L 05/27/21 Albumin 3.2 gm/dl (3.4-5.0) L 05/27/21 Mg 1.9 mg/dl (1.7-2.4) 05/27/21 05:05 05/27/21 Calcium Level 8.5 mg/dl (8.5-10.1) 05/27/21 05:05 05/27/21 Diagnostic Findings (Past 24 Hours) Chest X-Ray 05/26/21 11:52 XR chest 1V portable CLINICAL HISTORY: cardiac arrest TECHNIQUE: Single frontal radiograph of the chest was obtained. Comparison: Comparison is made to chest one view 03/12/2021 FINDINGS: Surgical clips are in the right axilla. The cardiomediastinal silhouette is stable. The lungs are clear. No evidence of pleural effusion or pneumothorax. IMPRESSION: No acute chest disease. ACT 112: Negative or not required by law. Electronically signed by: Kashmir Fraga M.D. 05/26/2021 12:03 PM Venous Doppler Study 05/26/21 12:04 US venous doppler LE CLINICAL HISTORY: r/o DVT TECHNIQUE: Bilateral lower extremity real-time compression venous ultrasound with Color Doppler imaging. Utilizing real-time ultrasonic imaging multiple real time high-resolution ultrasonic images with compression and noncompression maneuvers of the deep venous system in addition to color doppler imaging were performed from the common femoral vein through the proximal calf veins. COMPARISON: None available at the time of this dictation. FINDINGS: Currently there is normal compressibility of the deep venous system from the common femoral vein through the proximal calf veins. No current evidence of acute thrombosis is identified. Impression: No evidence of deep venous thrombus. ACT 112: Negative or not required by law. Electronically signed by: Kashmir Fraga M.D. 05/26/2021 2:33 PM I & O Totals 24 Hours 05/26/21 05/27/21 05/28/21 06:59 06:59 06:59 Intake Total 1896.666 / 1896.666 100 / 100 Output Total 1575 / 1575 Balance 321.666 / 321.666 100 / 100 Cumulative 05/26/21 02:41 thru 05/27/21 08:29 Intake Total 1996.666 Output Total 1575 Balance 421.666 RT Ventilator Mngmt (Last Documented) Ventilator Ordered Settings Respiratory Rate 21 05/27/21 08:00 Fraction of Inspired Oxygen 50 05/26/21 12:02 Ventilator - PT Measurements Respiratory Rate 21 Coding Level of Care Code 40194 Subseq [facility] 3 Diagnoses Torsades de pointes I47.2 Cardiac arrest I46.9 Fracture of hip, left, closed S72.002A Encounter type: initial encounter Hypomagnesemia E83.42 Hypokalemia E87.6 (1) Fracture of hip, left, closed Encounter type: initial encounter Qualified Code(s): S72.002A - Fracture of unspecified part of neck of left femur, initial encounter for closed fracture
--- NOTE | 2021-05-27 12:14 | Electrocardiogram Report ---
Test Reason : Blood Pressure : / mmHG Vent. Rate : 072 BPM Atrial Rate : 072 BPM P-R Int : 188 ms QRS Dur : 146 ms QT Int : 498 ms P-R-T Axes : 033 -50 108 degrees QTc Int : 545 ms Normal sinus rhythm Left axis deviation Left bundle branch block Abnormal ECG When compared with ECG of 26-MAY-2021 11:58, (unconfirmed) No significant change was found Confirmed by Sreedhar Dillard ([id number]) on 05/27/2021 12:13:33 PM Referred By: REFERRED SELF Confirmed By:Sreedhar Dillard
--- NOTE | 2021-05-27 12:21 | Electrocardiogram Report ---
Test Reason : Blood Pressure : / mmHG Vent. Rate : 066 BPM Atrial Rate : 066 BPM P-R Int : 154 ms QRS Dur : 134 ms QT Int : 456 ms P-R-T Axes : 044 -35 096 degrees QTc Int : 478 ms Normal sinus rhythm Left axis deviation Left bundle branch block Abnormal ECG When compared with ECG of 26-MAY-2021 23:05, (unconfirmed) No significant change was found Confirmed by Sreedhar Dillard ([id number]) on 05/27/2021 12:20:49 PM Referred By: REFERRED SELF Confirmed By:Sreedhar Dillard
[2021-05-27] MEDS ORDERED: MoRPHine SULFATE 2 MG/ML CARP IV STA (13:57)
[2021-05-27] MEDS ORDERED: MoRPHine SULFATE 2 MG/ML CARP ONE (13:59)
--- NOTE | 2021-05-27 15:04 | Anesthesiology Consultation ---
Date of Service May 27, 2021 Assessment & Plan ASA [id number] Proposed Anesthesia Anesthesia Type: Spinal Risk / Benefits Reviewed With: PT / POA / Parent / Guardian, Accepts Plan and Informed Consent Obtained Additional Comments: i have eviewed the cardiac, critical care, and hospitalist notes concerning the patients code yesterday. i reviewed the echo. I had a long talk with the patients and two sons. The patient is high risk for this procedure and cardiology does not feel any further work up is necessary at this time. The working theory is torsades. They have recommended to avoid qt prolonging medicines. Most anesthesia medicines prolong qt to some extent. We will do a spinal to minimize the use of other medications. I explained to the family that there maybe a high incidence of recall. Family understands she is high risk for procedure, but wish to proceed. D/w adam astorga vocational nursing instructor History Surgery Operation Date: 05/26/21 11:00 Proposed Procedures p Bipolar Hip Prosthesis(Left) - Kelvin Zavala MD Operation Date: 05/27/21 11:30 Proposed Procedures p Left Cemented Bipolar Hip - Kelvin Zavala MD Height/Weight Height: 5 ft 4 in Weight: 76.2 kg Allergies Allergy/AdvReac Type Severity Reaction Status Date / Time procaine [From Novocain] Allergy Verified 05/09/21 12:36 Medications Home Medications Medication Instructions Recorded Confirmed Last Taken atenolol 25 mg tablet 25 mg PO QAM 03/12/21 05/26/21 05/08/21 atorvastatin 10 mg tablet 10 mg PO PM 03/12/21 05/26/21 05/08/21 calcium carbonate 600 mg-vitamin 1 tab PO DAILY 03/12/21 05/26/21 05/08/21 D3 20 mcg (800 unit) chewable tablet (Caltrate 600 plus D) donepezil 10 mg tablet 10 mg PO QPM 03/12/21 05/26/21 05/08/21 lorazepam 1 mg tablet 1 mg PO QPM 03/12/21 05/26/21 05/08/21 meclizine 25 mg tablet 25 mg PO Q8H PRN 03/12/21 05/26/21 Unknown multivitamin 1 tab PO DAILY 03/12/21 05/26/21 05/08/21 potassium chloride 20 mEq 20 meq PO DAILY 03/12/21 05/26/21 05/08/21 tablet,extended release ondansetron HCl 4 mg tablet 4 mg PO Q8H PRN 04/01/21 05/26/21 Unknown pantoprazole 40 mg tablet,delayed 40 mg PO BID #180 tab 04/09/21 05/26/21 05/08/21 release loperamide 2 mg tablet 2 mg PO Q4H PRN 05/03/21 05/26/21 Unknown memantine 5 mg tablet 5 mg PO BID 05/03/21 05/26/21 05/08/21 aspirin 81 mg capsule 81 mg PO DAILY 05/09/21 05/26/21 05/08/21 Active Medications Generic Name Dose Route Start Last Admin Trade Name Freq PRN Reason Stop Dose Admin Atorvastatin Calcium 10 mg 05/26/21 21:00 05/26/21 20:10 Atorvastatin 10 Mg Tab PO 06/25/21 20:59 Not Given PM GISELLE Lorazepam 1 mg 05/26/21 21:00 05/26/21 20:10 Lorazepam 1 Mg Tab PO 06/25/21 20:59 Not Given QPM GISELLE Pantoprazole Sodium 40 mg 05/26/21 09:00 05/26/21 20:10 Pantoprazole 40 Mg Tab PO 06/25/21 08:59 Not Given BID GISELLE NPO Date Last Intake of Fluids: 05/25/21 Time Last Intake of Fluids: 18:00 Last Intake of Fluids Comment: pt with dementia hx and unsure of last time of liquids or solids Date Last Intake of Solids: 05/25/21 Time Last Intake of Solids: 18:00 Past Medical History Medical History Acute kidney failure Alzheimer disease Anorexia Anxiety disorder Ataxic gait Dementia Dizziness and giddiness Hyperlipidemia Hypertension LBBB (left bundle branch block) Muscle weakness Exercise / Class Metabolic Activity III < 4 Walking/Shop/Light housework Past Surgical History Surgical History Surgical history unknown Past Anesthesia History No Hx of Anesthesia Complications and No Family Hx of Anesthesia Complications History of PONV No Hx of PONV and No Hx of Motion Sickness Social History Smoking Status: Never smoker Do You Dip or Chew Tobacco: No Hx Alcohol Use: No Hx Substance Use: No substance use type: does not use Review of Systems denies fever/cough/ colds/ chest pain/ SOB/ LEISA denies LEISA Physical Exam Vital Signs Last Vital Signs Temp 36.4 C L 05/27/21 14:36 Pulse 54 L 05/27/21 14:36 Resp 18 05/27/21 14:36 BP 154/66 H 05/27/21 14:36 Pulse Ox 98 05/27/21 14:36 ENMT Mouth: no TMJ abnormality and no dentition abnormality Thyromental Distance: > or= 3.5 Finger Breadths Mallampati Class: II Neck neck extension not limited Respiratory normal respiratory effort; no respiratory distress Auscultation: lungs clear to auscultation bilaterally Cardiovascular Rate/Rhythm: regular rate and regular rhythm Neurologic moves all extremities Psychiatric Orientation: alert and oriented x 3 Testing Laboratory Results 05/27/21 05:05 05/27/21 05:05 PT 11.3 Seconds (9.0-12.0) 05/26/21 03:18 INR 1.1 (0.9-1.1) 05/26/21 03:18 APTT 22.6 Seconds (21.0-31.0) 05/26/21 03:18 Urine Color Yellow 05/26/21 03:55 Urine Appearance Clear (Clear) 05/26/21 03:55 Urine pH 8.0 (4.5-7.5) H 05/26/21 03:55 Ur Specific [place] 1.009 (1.000-1.030) 05/26/21 03:55 Urine Protein Negative (Negative) 05/26/21 03:55 Urine Glucose (UA) Negative (Negative) 05/26/21 03:55 Urine Ketones Negative (Negative) 05/26/21 03:55 Urine Nitrite Negative (Negative) 05/26/21 03:55 Ur Leukocyte Esterase Negative (Negative) 05/26/21 03:55 Blood Type O Positive 05/26/21 07:12 Antibody Screen NEGATIVE 05/26/21 07:12 Electrocardiogram Date: 05/26/21
[2021-05-27] MEDS ORDERED: ATROPINE SULFATE 0.1 MG/ML 10ML SYR IV PRN (15:09)
[2021-05-27] MEDS ORDERED: ePHEDrine sulfate 50 MG/ML AMP IV PRN (15:09)
[2021-05-27] MEDS ORDERED: BUPIVACAINE/EPINEPHRINE 0.25% 1:200,000 30 ML VIAL ONE (15:11)
[2021-05-27] MEDS ORDERED: PROPOFOL IV EMULSION 10 MG/ML 20 ML VIAL IV ONE ×2 (15:21→15:59)
[2021-05-27] MEDS ORDERED: MIDAZOLAM HCL 1 MG/ML 2ML VIAL ONE (15:21)
[2021-05-27] MEDS ORDERED: ceFAZolin 330 MG/ML 1 GM VIAL ONE (15:40)
[2021-05-27] MEDS: ceFAZolin 2000MG 2,000 MG/15 ML SYR IV ONE ×2 (15:40→18:50)
[2021-05-27] MEDS ORDERED: ePHEDrine sulfate 50 MG/ML AMP ONE (15:59)
[2021-05-27] MEDS ORDERED: PHENYLEPHRINE 100MCG/ML 5ML SYR ONE (15:59)
--- NOTE | 2021-05-27 16:56 | Post Operative Brief Note ---
PG Immediate Post Op with CF Date of Surgery May 27, 2021 Pre & Post Diagnosis Operation Date: 05/26/21 11:00 <No data on this case meets the specified criteria> Operation Date: 05/27/21 11:30 Pre-Op Diagnosis: LEFT DISPLACED FEMORAL NECK/HIP FRACTURE Post-Op Diagnosis: LEFT DISPLACED FEMORAL NECK/HIP FRACTURE I identified the patient and participated in the time-out.: Yes Procedure Operation Date: 05/26/21 11:00 <No data on this case meets the specified criteria> Operation Date: 05/27/21 11:30 Actual Procedures p Left Cemented Bipolar Hip(Left) - Kelvin Zavala MD Surgeon Kelvin Zavala MD Show Card Letterer Santana Maloney PA-C Estimated Blood Loss 100 Findings Consistent with Post-Op Diagnosis Specimens Specimen Description: A. Left Femoral Head Anesthesia Type Spinal Complications none Disposition Accompanied Patient To Recovery: Yes
[2021-05-27] MEDS ORDERED: ICU ELECTROLYTE REPLACEMENT PROTOCOL SCH (18:00)
[2021-05-27] MEDS ORDERED: ACETAMINOPHEN W/CODEINE #3 1 TAB PO ONE (18:22)
--- NOTE | 2021-05-27 18:28 | Anesthesiology Progress Note ---
Date of Service May 27, 2021 Anesthesia Post Procedure Vital Signs Vital Signs: Temp Pulse Pulse Pulse Resp BP BP 05/27/21 17:25 68 19 145/53 H 05/27/21 17:15 78 22 150/50 H 05/27/21 17:05 125 H 17 146/57 H 05/27/21 16:57 37.2 C 84 18 123/65 05/27/21 15:01 56 L 18 161/63 H 05/27/21 15:00 55 L 24 05/27/21 14:36 36.4 C L 54 L 18 154/66 H 05/27/21 14:00 54 L 21 05/27/21 13:00 56 L 13 146/59 H 05/27/21 12:00 57 L 35 H 132/64 05/27/21 11:00 56 L 21 130/59 L 05/27/21 10:00 56 L 15 127/57 L 05/27/21 09:00 37.1 C 57 L 16 128/55 L 05/27/21 08:00 58 L 21 131/54 L 05/27/21 07:38 58 L 16 05/27/21 07:00 59 L 16 136/53 L 05/27/21 06:00 58 L 15 128/50 L 05/27/21 05:00 60 16 120/48 L 05/27/21 04:00 64 19 126/51 L 05/27/21 03:00 60 25 H 05/27/21 02:00 61 17 126/47 L 05/27/21 01:01 64 17 124/55 L 05/27/21 01:00 68 19 05/27/21 00:00 37 C 61 24 137/55 L 05/26/21 23:01 37 C 71 21 138/82 05/26/21 23:00 73 28 H 05/26/21 22:57 70 05/26/21 22:00 64 15 133/51 L 05/26/21 21:00 63 16 127/52 L 05/26/21 20:15 62 20 131/55 L 05/26/21 20:00 36.7 C 66 16 131/51 L 05/26/21 19:45 65 18 128/53 L 05/26/21 19:30 66 16 138/55 L 05/26/21 19:15 64 15 130/51 L 05/26/21 19:00 66 19 139/51 L Pulse Ox Pulse Ox 05/27/21 17:25 100 05/27/21 17:15 100 05/27/21 17:05 96 05/27/21 16:57 96 05/27/21 15:01 99 05/27/21 15:00 99 98 05/27/21 14:36 98 05/27/21 14:00 98 05/27/21 13:00 99 05/27/21 12:00 98 05/27/21 11:00 98 05/27/21 10:00 98 05/27/21 09:00 98 05/27/21 08:00 94 05/27/21 07:38 98 05/27/21 07:00 98 05/27/21 06:00 97 05/27/21 05:00 97 05/27/21 04:00 98 05/27/21 03:00 97 99 05/27/21 02:00 97 05/27/21 01:01 98 05/27/21 01:00 98 05/27/21 00:00 98 05/26/21 23:01 05/26/21 23:00 86 L 98 05/26/21 22:57 05/26/21 22:00 99 05/26/21 21:00 99 05/26/21 20:15 100 05/26/21 20:00 100 05/26/21 19:45 100 05/26/21 19:30 100 05/26/21 19:15 100 05/26/21 19:00 100 100 Pain Intensity Left Hip: Pain Intensity: 10 Transfer of Care Handoff Completed per policy Notes Mental Status: alert / awake / arousable and participated in evaluation Patient Amnestic to Procedure: Yes Nausea / Vomiting: adequately controlled Pain: adequately controlled Airway Patency, RR, SpO2: stable & adequate BP & HR: stable & adequate Hydration State: stable & adequate Anesthetic Complications: no major complications apparent and Pt Satisfied with anesthetic care
--- NOTE | 2021-05-27 18:38 | XRay Report ---
LEFT HIP 2 VIEWS CLINICAL HISTORY: Postoperative examination. FINDINGS: AP and crosstable lateral views of the left hip are compared to study dated 05/26/2021. The skeletal structures are osteopenic. A unipolar left hip arthroplasty is in near-anatomic alignment. N o acute fracture is seen. Skin clips, soft tissue gas, and edema overlying the left hip are expected postoperative changes. The visualized left hemipelvis appears intact. IMPRESSION: Expected postoperative findings status post left hip arthroplasty. No acute fracture is s een. Electronically signed by: Matt Williamson M.D. 05/27/2021 6:37 PM
[2021-05-27] MEDS ORDERED: ACETAMINOPHEN 325 MG TAB PO PRN (18:41)
[2021-05-27] MEDS: HYDROCODONE/ACETAMOPHEN 5/325MG TAB PO PRN (20:34)
[2021-05-27] MEDS: ASPIRIN 81 MG ECTAB PO SCH (20:35)
[2021-05-27] MEDS: PANTOprazole 40 MG TAB PO SCH ×2 (20:35→20:40)
[2021-05-27] MEDS: ATORVASTATIN 10 MG TAB PO SCH (20:36)
[2021-05-27] MEDS: LORazepam 1 MG TAB PO SCH (20:37)
[2021-05-28 05:38] LABS: Basophils # (auto) 0.02 K/uL (0-0.2); Basophils % (auto) 0.2 %; Eosinophils # (auto) 0.06 K/uL (0-0.5); Eosinophils % (auto) 0.6 %; Hematocrit (blood only) 30.8 % (37-47); Hemoglobin 10.3 g/dL (12.0-16.0); Immature Granulocytes # (auto) 0.03 K/uL (0.00-0.02); Immature Granulocytes % (auto) 0.3 %; Lymphocytes # (auto) 0.98 K/uL (1.2-3.4); Lymphocytes % (auto) 10.1 %; Mean Corpuscular Hemoglobin 32.9 pg (25-34); Mean Corpuscular Hgb Conc 33.4 g/dL (32-36); Mean Corpuscular Volume 98.4 fL (80-100); Mean Platelet Volume 11.4 fL (7.4-10.4); Monocytes # (auto) 0.83 K/uL (0.11-0.59); Monocytes % (auto) 8.5 %; Neutrophils # (auto) 7.82 K/uL (1.4-6.5); Neutrophils % (auto) 80.3 %; Platelet Count 137 K/uL (130-400); RDW Standard Deviation 49.7 fL (36.4-46.3); Red Blood Count 3.13 M/uL (4.2-5.4); White Blood Count 9.74 K/uL (4.8-10.8)
[2021-05-28 06:03] LABS: Bilirubin Direct 0.2 mg/dl (0-0.2); Bilirubin,Total 1.2 mg/dl (0.2-1.0); Calcium 8.3 mg/dl (8.5-10.1); Creatinine Clr Calc Pharmacy 43.9 ml/min; Est GFR (African American) 65.3 ml/min; Est GFR (Non-African American) 56.4 ml/min; Magnesium 1.9 mg/dl (1.7-2.4); Phosphorus 3.7 mg/dl (2.5-4.9); Potassium 3.9 mmol/L (3.5-5.1)
[2021-05-28] MEDS ORDERED: MAGNESIUM SULFATE / D5W 1 GM/100 ML BAG IV ONE (07:25)
[2021-05-28] MEDS: CALCIUM 600MG + VIT D 400 IU TAB PO SCH (08:58)
[2021-05-28] MEDS: ASPIRIN 81 MG ECTAB PO SCH ×2 (08:58→21:55)
[2021-05-28] MEDS: MULTIVITAMIN TAB PO SCH (08:58)
--- NOTE | 2021-05-28 08:58 | Operative Report ---
PG Post Operative Report Pre & Post Diagnosis Operation Date: 05/26/21 11:00 <No data on this case meets the specified criteria> Operation Date: 05/27/21 11:30 Pre-Op Diagnosis: LEFT DISPLACED FEMORAL NECK/HIP FRACTURE Post-Op Diagnosis: LEFT DISPLACED FEMORAL NECK/HIP FRACTURE I identified the patient and participated in the time-out.: Yes Procedure Operation Date: 05/26/21 11:00 <No data on this case meets the specified criteria> Operation Date: 05/27/21 11:30 Actual Procedures p Left Cemented Bipolar Hip(Left) - Kelvin Zavala MD Surgeon Kelvin Zavala MD Conductor/Brakeman Santana Maloney PA-C Estimated Blood Loss 100 Findings Consistent with Post-Op Diagnosis Specimens Left femoral head sent for pathology. Anesthesia Type Spinal Complications none Disposition Accompanied Patient To Recovery: Yes Indications Patient is an 85-year-old female with multiple medical comorbidities with significant dementia who sustained a fall. She had acute onset of pain and was unable to ambulate. She brought the emergency room x-rays revealed a displaced femoral neck fracture. She is admitted by the medicine service. She was actually scheduled to have her hip fixed and then coded on the floor. She was medically optimized and now indicated for surgical management of this to be displaced femoral neck fracture. Description of Procedure Operative implants consisted of: 1. Biomet size 11 LD/fracture cemented femoral stem. 2. 0/28 mm articular ball. 3. 46 mm bipolar shell and liner. 4. Distal cementralizer. 5. Small cement restrictor. The patient was taken the operating, identified, and placed on the operating table supine position protectors were properly padded. IV antibiotics 5 by anesthesia team. A spinal anesthetic was employed by anesthesia team. Patient was then placed in the right lateral decubitus position. An axillary roll was placed. A Stulberg hip positioner was used for positioning. The left hip was then scrubbed with Hibiclens and then prepped with ChloraPrep and draped in usual sterile fashion. Posterior lateral posterior left hip was then performed through a curvilinear incision centered over the greater trochanter. Sharp dissection got through subcutaneous tissue down below the IT band gluteal fascia the IT band gluteal fascia incised longitudinally in line with skin incision. The underlying greater bursa was excised. The piriformis and external rotators were then tagged and taken off the posterior aspect hip joint capsule. Great care was taken throughout the procedure protect the sciatic nerve at all times. Posterior capsulotomy was then performed leaving the flaps for later repair. Hip was internally rotated. Femoral neck osteotomy cut was made just below the fracture site. The femoral neck and the femoral head were then removed. I sized the acetabulum to a 46 and attention drawn the femur. Proximal femur was entered with a cookie-cutter followed by canal finder and lateralizing reamer. We broached beginning with size 9 and progressing up to 11. We had excellent fit 11. We then trialed the hip and the 0 ball provide full stability and leg lengths appropriately. We elect to place these implants. Nupathe all trial implants were removed. A small cement restrictor was placed distally. I irrigated the canal extensively. Double batch Palacos G cement was mixed. This was then injected in the canal and a size 11 LD/fracture femoral stem with a distal centralizer was then placed. Once the cement hardened a +0/28 mm articular ball with a 46 mm bipolar shell and liner were placed and the hip was located once again found to be stable. Attention drawn toward closing. The wound was irrigated scope soft pulsatile lavage solution. I did inject lo abran with 30 cc of half percent Marcaine with epinephrine. The posterior capsule was then repaired with #2 Tycron suture. The external rotators were repaired to the posterior aspect hip abductors with number two 2 Tycron suture. The IT band gluteal fascia then closed in 1 PDS suture in a running fashion for the subcutaneous tissue then closed in 2 layers with a deep layer #1 Vicryl suture subcutaneous tissues with 2-0 Dexon suture in a buried interrupted fashion. Skin was closed skin lynn. Leg was then cleaned and dried a sterile dressing with Xeroform, 4 x 4's, ABD pad, foam tape was applied. Patient then transferred to the recovery room in stable condition. Patient tolerated procedure well and there were no complications. Santana Maloney, my physician commissary assistant, was present for the entire procedure. His assistance was essential and required for appropriate patient positioning, prepping and draping, surgical exposure, performing the technical details of the operation, placement the implants, closure of the wound, and placement of the sterile bandage. I attest to the content of the Intraoperative Record and any orders documented therein. Any exceptions are noted below.
[2021-05-28] MEDS ORDERED: CHOLECALCIFEROL 1,000 UNITS 25 MCG TAB PO SCH (09:00)
[2021-05-28] MEDS: POTASSIUM CHLORIDE CRTAB 20 MEQ TABCR PO SCH (09:03)
[2021-05-28] MEDS: PANTOprazole 40 MG TAB PO SCH ×2 (09:03→21:55)
--- NOTE | 2021-05-28 10:14 | Hospitalist Progress Note ---
Date of Service May 28, 2021 Assessment & Plan (1) Cardiac arrest: Plan: Admitted for left hip fracture and had cardiac arrest secondary to Torsades de pointes, prolonged QTc, hypomagnesemia, hypokalemia approximately 8 hours after admission Received CPR, 1 shock, 1 mg epi, amiodarone 300mg x 1, sodium bicarb, 2 grams IV mag. Fortunately after ROSC she was awake and yelling, moving all extremities, did not require intubation Transferred to ICU on 05/26 after arrest Lytes all repleted Having some brief bradycardia events on tele with possible AV block vs junctional, related to vagal tone? Associated with nausea-none since midnight on 05/26 ECHO with significant LVH, EF low normal at 50%, otherwise ok Appreciate Cardiology consult no heart alert was needed LBBB is old but has never been evaluated-Cardiology does not recommend further eval of this given advanced age and comorbidity of dementia continue tele monitoring continue to hold atenolol continue to hold all QT prolonging meds eg Zofran, Donepezil, memantine -with significant MSK pain, TTP over chest wall 2/2 chest compressions. No rib fractures seen on portable CXR but suspect she does have multiple rib fractures--> continue hydrocodone prn, ICS (2) Torsades de pointes: Plan: as above, replaced lytes, monitor on tele, dc QT prolonging meds Follow BMP, magnesium and replace as needed-give 1 gram IV mag today to keep Mag>2.0 Give KCl 10 meq po x 1 (3) Bradycardia: Plan: With several episodes of what might be brief complete heart block associated with nausea Likely increased vagal tone contributing as per cardiology none further since midnight 05/26 Monitor on telemetry Hold atenolol (4) Closed left hip fracture: Plan: Status post fall possibly out of bed, but history not clear repair delayed on day #1 due to cardiac arrest now s/p Left cemented bipolar hip repair on 05/[address] Zavala Pain control with hydrocodone prn, tylenol bowel regimen with bisacodyl prn, add senna docusate Follow CBC, BMP DVT prophylaxis with ASA bid, SCDs -Bergeron remains in place-keep until more mobile PT/OT consults pending will need rehab (5) Hypomagnesemia: Plan: Improved after replacement, with torsades as above give 1 gram mag to keep >2.0 Follow mag level in the morning (6) Hypokalemia: Plan: Improved after replacement replace with po KCl today to keep >4.0 Follow BMP, magnesium (7) Dementia: Plan: lives in dementia unit at [facility] Frequent orientation Holding Aricept and Memantine due to QT prolongation and torsades would not likely restart as the risk outweighs the benefit her dementia will certainly inhibit her ability to recover as she is agitated at times and has difficulty communicating her needs (8) LBBB (left bundle branch block): Plan: Chronically since March at least on ECG here, otherwise no old ECGs to compare to No work-up previously done as far as the is aware Echocardiogram here with low normal EF status post cardiac arrest and severe LVH No wall motion abnormalities Cardiology does not recommend any further eval for ischemia in the future due to advanced age, dementia (9) Hypertension: Plan: Blood pressures are climbing a bit now with atenolol on hold Holding atenolol for bradycardia will add on lisinopril 5mg daily (10) Hyperlipidemia: Plan: Chronic -Continue Atorvastatin (11) GERD (gastroesophageal reflux disease): Plan: Chronic. Patient had an EGD performed on 05/09/21 which revealed a small hiatal hernia and gastritis which was biopsied. -Continue Protonix BID Plan: Ppx - SCD, aspirin twice daily as per Ortho Code - Full per discussion with patient on admission Dispo -continued stay in PCU, PT/OT consults pending. Will certainly need rehab placement prior to return to [facility] Admission and Anticipated Discharge Date Admission Date: May 26, 2021 Subjective Pt feels sleepy, but otherwise does not offer much history. She denies pain in her hip. Does have pain in chest when palpated. No events on tele overnight Discussed her care with Cardiology Review of Systems Review of Systems: All systems reviewed & are unremarkable except as noted in HPI & below Physical Exam Constitutional: WD/WN, vitals as above Eyes: + anicteric sclerae Neck: trachea midline, no thyromegaly Respiratory: normal respiratory effort, lungs clear to auscultation Cardiovascular: RRR, no murmur, no edema Chest (Breasts): Chest: + abnormal inspection of chest (and +TTP over sternum) Breast: + abnormal inspection of breast (right mastectomy) Gastrointestinal (Abdomen): normal bowel sounds, soft, nontender, no hepatosplenomegaly Musculoskeletal: Extremities: + extremities abnormal to inspection (left hip with dressing intact), no cyanosis and no clubbing Skin: no rashes, warm and dry Neurologic: awake and + confused; no focal motor deficits (moves all extremities) Speech / Cognition: + abnormal cognition; no expressive aphasia Psychiatric: Orientation: alert, oriented to person, oriented to place and cooperative Lymphatic: no lymphedema Results & Data Results & Data ([facility]) Vital Signs (Past 12 Hours) Vital Signs Temp Pulse Pulse Resp BP BP Pulse Ox 05/28/21 08:00 37.1 C 88 20 159/77 H 100 05/28/21 06:00 65 32 H 99 05/28/21 04:00 36.8 C 71 37 H 150/58 H 98 05/28/21 03:00 05/28/21 02:00 79 29 H 100 05/28/21 00:00 80 13 159/64 H 98 05/27/21 23:00 36.8 C 78 18 134/93 100 05/27/21 22:30 77 10 L 144/62 H 98 Pulse Ox 05/28/21 08:00 05/28/21 06:00 05/28/21 04:00 05/28/21 03:00 99 05/28/21 02:00 05/28/21 00:00 05/27/21 23:00 94 05/27/21 22:30 Laboratory Results 05/28/21 05/28/21 05/28/21 Range/Units 04:09 04:09 04:09 WBC 9.74 (4.8-10.8) K/uL RBC 3.13 L (4.2-5.4) M/uL Hgb 10.3 L (12.0-16.0) g/dL Hct 30.8 L (37-47) % MCV 98.4 (80-100) fL MCH 32.9 (25-34) pg MCHC 33.4 (32-36) g/dL RDW Std Deviation 49.7 H (36.4-46.3) fL RDW Coeff of Ria 14.0 (11.5-14.5) % Plt Count 137 (130-400) K/uL MPV 11.4 H (7.4-10.4) fL Immature Gran % (Auto) 0.3 % Neut % (Auto) 80.3 % Lymph % (Auto) 10.1 % [place] % (Auto) 8.5 % Eos % (Auto) 0.6 % Baso % (Auto) 0.2 % Neut # (Auto) 7.82 H (1.4-6.5) K/uL Lymph # (Auto) 0.98 L (1.2-3.4) K/uL [place] # (Auto) 0.83 H (0.11-0.59) K/uL Eos # (Auto) 0.06 (0-0.5) K/uL Baso # (Auto) 0.02 (0-0.2) K/uL Immature Gran # (Auto) 0.03 H (0.00-0.02) K/uL Sodium 141 (136-145) mmol/L Potassium 3.9 (3.5-5.1) mmol/L Chloride 109 H (98-107) mmol/L Carbon Dioxide 26 (21-32) mmol/L Anion Gap 6 (3-11) BUN 23 (6-23) mg/dl Creatinine 0.92 (0.6-1.2) mg/dl Est Cr Clr Drug Dosing 43.9 ml/min Est GFR ( Amer) 65.3 ml/min Est GFR (Non-Af Amer) 56.4 ml/min BUN/Creatinine Ratio 25.0 H (10-20) Glucose 115 H (70-99(Fasting)) mg/dl Calcium 8.3 L (8.5-10.1) mg/dl Phosphorus 3.7 (2.5-4.9) mg/dl Magnesium 1.9 (1.7-2.4) mg/dl Total Bilirubin 1.2 H (0.2-1.0) mg/dl Direct Bilirubin 0.2 (0-0.2) mg/dl AST 24 (13-39) U/L ALT 21 (7-52) U/L Alkaline Phosphatase 50 (34-104) U/L Total Protein 5.0 L (6.0-8.3) gm/dl Albumin 3.0 L (3.4-5.0) gm/dl 25-OH Vitamin D Total 24.2 L (30-100) ng/ml PG Care Time/CCT Total # of Minutes Spent Total Time Spent with Patient: Total time spent is greater than 50% in coordination of care (as documented) at patient's floor/unit and/or counseling patient: Coding Level of Care Code 07503 Subseq Hosp Care Lvl 3 Diagnoses Cardiac arrest I46.9 Torsades de pointes I47.2 Bradycardia R00.1 Closed left hip fracture S72.002A Hypomagnesemia E83.42 Hypokalemia E87.6 Dementia F03.90 LBBB (left bundle branch block) I44.7 Hypertension I10 Hyperlipidemia E78.5 GERD (gastroesophageal reflux disease) K21.9
--- NOTE | 2021-05-28 10:19 | Cardiology Progress Note ---
Date of Service May 28, 2021 Assessment & Plan (1) Torsades de pointes: Plan: -likely secondary to hypokalemia and hypomagnesemia in the face of severe LVH. -also received fentanyl in the ER which can cause QT prolongation. -memantine and donepezil can also cause QT prolongation. -Torsades is most common in elderly females. -continue to monitor potassium and magnesium levels. -no further cardiac evaluation necessary. (2) Hypertension: Plan: -adequate control currently. -would add lisinopril or losartan if necessary. (3) Hyperlipidemia: Plan: -continue atorvastatin. Admission and Anticipated Discharge Date Admission Date: May 26, 2021 Subjective The patient is resting comfortably in bed complaining of musculoskeletal chest pain. No dyspnea. Physical Exam Physical Exam: In general is well-developed well-nourished white female in no acute distress. HEENT exam is negative. Neck is supple with full carotid upstrokes. There are no carotid bruits. Jugular is pressure is flat at 90. There is no thyromegaly. Cardiovascular exam reveals a regular rhythm with distant heart sounds. No obvious murmurs. No S3 or S4. Lungs are clear without rales, rhonchi or wheezes. Chest reveals a right-sided mastectomy and tenderness to palpation in the right parasternal region. Results & Data ([facility]) Vital Signs (Past 12 Hours) Vital Signs Temp Pulse Pulse Resp BP BP Pulse Ox 05/28/21 08:00 37.1 C 88 20 159/77 H 100 05/28/21 06:00 65 32 H 99 05/28/21 04:00 36.8 C 71 37 H 150/58 H 98 05/28/21 03:00 05/28/21 02:00 79 29 H 100 05/28/21 00:00 80 13 159/64 H 98 05/27/21 23:00 36.8 C 78 18 134/93 100 05/27/21 22:30 77 10 L 144/62 H 98 Pulse Ox 05/28/21 08:00 05/28/21 06:00 05/28/21 04:00 05/28/21 03:00 99 05/28/21 02:00 05/28/21 00:00 05/27/21 23:00 94 05/27/21 22:30 Laboratory Results Potassium is normal 3.9. Magnesium level also normal at 1.9. Diagnostic Findings engine monitor notes occasional PVCs. No torsades. No pauses. PG Care Time/CCT Total # of Minutes Spent Total Time Spent with Patient: Total time spent is greater than 50% in coordination of care (as documented) at patient's floor/unit and/or counseling patient: Coding Level of Care Code 43120 Subseq Hosp Care Lvl 3 Diagnoses Torsades de pointes I47.2 Hypertension I10 Hyperlipidemia E78.5
--- NOTE | 2021-05-28 10:38 | Electrocardiogram Report ---
Test Reason : Blood Pressure : / mmHG Vent. Rate : 059 BPM Atrial Rate : 059 BPM P-R Int : 162 ms QRS Dur : 140 ms QT Int : 488 ms P-R-T Axes : 027 -47 110 degrees QTc Int : 483 ms Sinus bradycardia Left axis deviation Left bundle branch block Abnormal ECG When compared with ECG of 26-MAY-2021 23:06, No significant change was found Confirmed by Sreedhar Dillard ([id number]) on 05/28/2021 10:38:03 AM Referred By: REFERRED SELF Confirmed By:Sreedhar Dillard
[2021-05-28] MEDS: DOCUSATE SODIUM/SENNA 50/8.6MG TAB PO SCH (11:28)
[2021-05-28] MEDS: lisinopril 5 MG TAB PO SCH (11:28)
[2021-05-28] MEDS: HYDROCODONE/ACETAMOPHEN 5/325MG TAB PO PRN (11:30)
--- NOTE | 2021-05-28 19:16 | Progress Notes ---
DATE OF SERVICE: 05/28/2021. SUBJECTIVE: An 85-year-old white female postoperative day 1 from a left cemented bipolar hip arthrop lasty for fracture. She seems to be doing pretty well. Only complaint is chest pain. Denies any si gnificant hip pain. OBJECTIVE: VITAL SIGNS: Temperature 36.4. Vital signs are stable. GENERAL: Shows a pleasant, slightly demented elderly female. She is lying in bed, looks reasonably comfortable. EXTREMITIES: Examination of left hip reveals leg lengths to be equal. Dressing is clean, dry and in tact. She can dorsiflex and plantarflex her foot appropriately. LABORATORY DATA: Hemoglobin 10.3. Hematocrit 30.8. Electrolytes are stable. ASSESSMENT: An 85-year-old white female postoperative day 1 from a left cemented bipolar hip arthrop lasty, doing pretty well. She appears pretty much her baseline. Chest pain is likely from chest com pressions from her ____ episode 2 days ago. PLAN: 1. DVT prophylaxis includes thigh-high TEDs, SCDs and we would recommend a baby aspirin twice a day for 6 weeks. 2. PT/OT. She can weight bear as tolerated. Does need to obey hip precautions. 3. Pain control. I would limit narcotic pain medicines to avoid confusion. She does not seem to alvarez ve any significant pain. 4. Medical management as per the medicine service. 5. Disposition: She is orthopedically okay for discharge any time medically stable. I need to see her back two to three weeks out from her surgery date. Any orthopedic questions can be directed to marga dillon at [phone]. Job ID: [id number]
[2021-05-28] MEDS ORDERED: SODIUM BICARB 8.4% INJ 50 MEQ/50 ML SYR IV ONE (21:02)
[2021-05-28] MEDS ORDERED: AMIODARONE HCL INJ 50 MG/ML 3 ML VIAL IV ONE (21:02)
[2021-05-28] MEDS: LORazepam 1 MG TAB PO SCH (21:55)
[2021-05-28] MEDS: ATORVASTATIN 10 MG TAB PO SCH (21:55)
[2021-05-29 06:38] LABS: Basophils # (auto) 0.02 K/uL (0-0.2); Basophils % (auto) 0.2 %; Hematocrit (blood only) 28.3 % (37-47); Hemoglobin 9.5 g/dL (12.0-16.0); Immature Granulocytes # (auto) 0.03 K/uL (0.00-0.02); Immature Granulocytes % (auto) 0.3 %; Lymphocytes # (auto) 1.51 K/uL (1.2-3.4); Lymphocytes % (auto) 15.1 %; Mean Corpuscular Hemoglobin 33.2 pg (25-34); Mean Corpuscular Hgb Conc 33.6 g/dL (32-36); Mean Platelet Volume 11.5 fL (7.4-10.4); Monocytes # (auto) 0.96 K/uL (0.11-0.59); Monocytes % (auto) 9.6 %; Neutrophils # (auto) 7.36 K/uL (1.4-6.5); Neutrophils % (auto) 73.8 %; Platelet Count 130 K/uL (130-400); RDW Coefficient of Variation 13.6 % (11.5-14.5); RDW Standard Deviation 49.2 fL (36.4-46.3); Red Blood Count 2.86 M/uL (4.2-5.4); White Blood Count 9.98 K/uL (4.8-10.8)
[2021-05-29 07:03] LABS: BUN Creatinine Ratio 32.6 (10-20); Calcium 8.5 mg/dl (8.5-10.1); Creatinine Clr Calc Pharmacy 45.1 ml/min; Est GFR (Non-African American) 58.7 ml/min; Potassium 4.1 mmol/L (3.5-5.1)
[2021-05-29] MEDS: CHOLECALCIFEROL 1,000 UNITS 25 MCG TAB PO SCH (09:42)
[2021-05-29] MEDS: CALCIUM 600MG + VIT D 400 IU TAB PO SCH (09:42)
[2021-05-29] MEDS: MULTIVITAMIN TAB PO SCH (09:42)
[2021-05-29] MEDS: PANTOprazole 40 MG TAB PO SCH ×2 (09:43→19:57)
[2021-05-29] MEDS: ASPIRIN 81 MG ECTAB PO SCH ×2 (09:43→19:57)
[2021-05-29] MEDS: lisinopril 5 MG TAB PO SCH (09:43)
[2021-05-29] MEDS: DOCUSATE SODIUM/SENNA 50/8.6MG TAB PO SCH (09:45)
[2021-05-29] MEDS: POTASSIUM CHLORIDE CRTAB 20 MEQ TABCR PO SCH (10:09)
[2021-05-29] MEDS: HYDROCODONE/ACETAMOPHEN 5/325MG TAB PO PRN (10:32)
--- NOTE | 2021-05-29 10:42 | Cardiology Progress Note ---
Date of Service May 29, 2021 Assessment & Plan (1) Torsades de pointes: Plan: -likely secondary to hypokalemia and hypomagnesemia in the face of structural heart disease (severe LVH). -received fentanyl in the ER which can cause QT prolongation. -memantine and donepezil can also cause QT prolongation. -Torsades is most common in elderly females. -potassium and magnesium levels now normal. -no further cardiac evaluation necessary. (2) Hypertension: Plan: -lisinopril added to her regimen yesterday. (3) Hyperlipidemia: Plan: -continue atorvastatin. Admission and Anticipated Discharge Date Admission Date: May 26, 2021 Subjective The patient is resting comfortably in bed. She continues to musculoskeletal chest discomfort. Physical Exam Physical Exam: In general is well-developed well-nourished white female in no acute distress. HEENT exam is negative. Neck is supple with full carotid upstrokes. There are no carotid bruits. Jugular is pressure is flat at 90. There is no thyromegaly. Cardiovascular exam reveals a regular rhythm with distant heart sounds. No obvious murmur. No S3 or S4. Lungs are clear without rales, rhonchi or wheezes. Chest reveals a right-sided mastectomy and tenderness to palpation in the right parasternal region. Results & Data ([facility]) Vital Signs (Past 12 Hours) Vital Signs Temp Pulse Pulse Resp BP Pulse Ox Pulse Ox 05/29/21 04:16 78 05/29/21 03:49 36.6 C 84 20 134/59 L 97 05/29/21 03:00 97 05/28/21 23:00 98 PG Care Time/CCT Total # of Minutes Spent Total Time Spent with Patient: Total time spent is greater than 50% in coordination of care (as documented) at patient's floor/unit and/or counseling patient: Coding Level of Care Code 70229 Subseq Hosp Care Lvl 3 Diagnoses Torsades de pointes I47.2 Hypertension I10 Hyperlipidemia E78.5
[2021-05-29] MEDS ORDERED: bisacodyL 10 MG SUPP PR STA (12:06)
[2021-05-29] MEDS: DICLOFENAC SOD 1% GEL 100 GM TUBE EXT SCH ×3 (13:38→19:58)
[2021-05-29] MEDS: ACETAMINOPHEN 500 MG TAB PO SCH ×2 (13:39→19:56)
[2021-05-29] MEDS: SENNA 8.6 MG TAB PO SCH (13:39)
--- NOTE | 2021-05-29 15:27 | Progress Notes ---
DATE OF SERVICE: 05/29/2021. SUBJECTIVE: An 85-year-old female now postop day 2 from a left cemented bipolar hip arthroplasty for fracture. She is doing reasonably well. Really not having much pain while in bed. Denies any othe r complaints. OBJECTIVE: VITAL SIGNS: Temperature 36.9. Vital signs are stable. GENERAL: Shows a pleasant, elderly female. She is sitting up in bed and looks pretty comfortable. EXTREMITIES: Examination of the left hip reveals dressing to be clean, dry and intact. Leg lengths were equal. She can dorsiflex and plantarflex her foot appropriately. She is neurologically intact. LABORATORY DATA: Hemoglobin 9.5. Hematocrit 28.3. Electrolytes are stable. ASSESSMENT: An 85-year-old white female postoperative day 2 from a left cemented bipolar hip arthrop lasty for fracture. Orthopedically, she is doing reasonably well. Pain seems to be controlled. Hip is located. She is neurologically intact. PLAN: 1. DVT prophylaxis includes thigh-high TEDs, SCDs and we would recommend a baby aspirin twice a day for 6 weeks. 2. PT/OT. She can weight bear as tolerated. She does need to obey hip precautions. 3. Pain control. Limit narcotics and try and stick to Tylenol mostly for pain control to avoid conf usion. 4. Medical management as per the medicine service. 5. Disposition: She is orthopedically okay for discharge any time medically stable. I need to see her back two to three weeks out from surgery date. Any orthopedic questions can be directed to me at [phone]. Job ID: [id number]
--- NOTE | 2021-05-29 16:49 | Hospitalist Progress Note ---
Date of Service May 29, 2021 Assessment & Plan (1) Constipation: Plan: No BM since admission. Only smear of stool produced s/p dulcolax suppos. KUB x-ray obtained - mod-large amount of stool in rectum; no ileus or SBO. Increase senna (add 2 additional tabs daily). Fleets enema x 1 this afternoon to disimpact the rectum. Constipation likely contributing to anorexia. (2) Cardiac arrest: Plan: Torsades de pointes in the setting of prolonged QTc on hospital day #1, about 8 hours after admission. Patient with significant hypomagnesemia and hypokalemia at the time of this event. Received CPR, 1 shock, 1 mg epi, amiodarone 300mg x 1, sodium bicarb, 2 grams IV mag. This led to ROSC. Transferred to ICU on 05/26 after arrest. ECHO with severe LVH, EF low normal at 50%. Beta melissa stopped while in ICU due to episodes of bradycardia. [facility] Cardiology consulted - torsades felt 2nd to low K, low mag - in the setting of prolonged QTc. Meds associated with prolonged QTc were stopped including aricept & namenda. Anti-emetics also stopped. Has baseline LBBB. Cardiology not recommending any additional invasive testing due to comorbidities, dementia, hip Fx, etc. Cont telemetry. Recheck K/mag am. (3) Torsades de pointes: Plan: see #2 above. (4) Bradycardia: Plan: Occurred midnight 05/26/21. ?transient AV block vs increased vagal tone from nausea (had nausea at time of her bradycardia). Atenolol stopped. Cardiology not recommending additional testing at this time other than observation. (5) Closed left hip fracture: Plan: POD #2, s/p ORIF by Dr Zavala (cemented bipolar hip repair). DVT proph - asa 81mg BID. vit D insufficiency - increase vit D to 2000 IU daily. Due to constipation issues change tylenol prn to scheduled 1gm TID. Pain meds prn. PT, OT when able. Will need higher level of care than [facility] can provide post-discharge. Prognosis is guarded in light of advanced dementia, cardiac issues, etc. (6) Hypomagnesemia: Plan: Replaced Resolved (7) Hypokalemia: Plan: Replaced Resolved Low K and low Mag - 2nd to poor oral intake on chronic basis outside the hospital ? (8) Dementia: Plan: Holding Aricept and Memantine due to QT prolongation and torsades Would not resume - limited benefit of these meds in the setting of advanced dementia (9) LBBB (left bundle branch block): Plan: Chronic, present several months prior to admission. Echocardiogram with severe LVH and low-nl EF of 50%. Due to advanced age, dementia, and guarded prognosis no ischemic w/u or invasive testing at this time. (10) Hypertension: Plan: Controlled with low-dose CLAY. (11) Hyperlipidemia: Plan: Continue Atorvastatin (12) GERD (gastroesophageal reflux disease): Plan: Continue Protonix BID (13) DVT prophylaxis: Plan: asa 81mg bid (14) Chest wall pain: Plan: highly suspicious for, at minimum, chest wall contusions from CPR/compressions. rib fractures/sternal fracture with high likelihood as well. cxr does not show fractures but still suspicious for such. could consider CT chest but this will not chemical cell changer. Tylenol 1gm TID. Lidoderm patches. Plan: updated by phone this evening need to address code status given guarded prognosis will need SNF placement due to poor PO intake today - start NS at 50cc/hr x 1 L. Admission and Anticipated Discharge Date Admission Date: May 26, 2021 Subjective tele stable overnight no dysrhythmia, bradycardia, torsades, etc seen nursing staff report no BM since admission they also report very little appetite today just before my bedside rounds she was given a suppository and this produced only a smear of stool during rounds the patient could offer little in the way of any history or ROS she did c/o her "stomach" however (pointed to upper abdomen) Review of Systems Review of Systems: Unobtainable due to cognitive status Physical Exam Physical Exam: gen - confused, oriented to person only mouth - MM slightly dry neck - no JVD heart - RRR, s1 s2 lungs - decreased BS right base, otherwise CTA b/l abd - mildly distended, BS+, mildly tender epigastric region, no HSM chest - very tender over costochondral junction on left along with multiple anterior ribs ext - mild edema left thigh; otherwise no ankle edema; pulses 2+ b/l skin - dressings intact L lateral hip neuro - motor 5/5 x 4 exts; no facial droop Results & Data Results & Data ([facility]) Vital Signs (Past 12 Hours) Vital Signs Temp Pulse Pulse Resp BP Pulse Ox 05/29/21 15:20 36.7 C 69 18 157/55 H 100 05/29/21 15:18 81 05/29/21 11:35 69 05/29/21 11:03 36.9 C 80 18 112/51 L 98 Laboratory Results Laboratory Results - last 24 hr 05/29/21 05/29/21 05:46 05:46 WBC 9.98 RBC 2.86 L Hgb 9.5 L Hct 28.3 L MCV 99.0 MCH 33.2 MCHC 33.6 RDW Std Deviation 49.2 H RDW Coeff of Ria 13.6 Plt Count 130 MPV 11.5 H Immature Gran % (Auto) 0.3 Neut % (Auto) 73.8 Lymph % (Auto) 15.1 [place] % (Auto) 9.6 Eos % (Auto) 1.0 Baso % (Auto) 0.2 Neut # (Auto) 7.36 H Lymph # (Auto) 1.51 [place] # (Auto) 0.96 H Eos # (Auto) 0.10 Baso # (Auto) 0.02 Immature Gran # (Auto) 0.03 H Sodium 140 Potassium 4.1 Chloride 108 H Carbon Dioxide 28 Anion Gap 4 BUN 29 H Creatinine 0.89 Est Cr Clr Drug Dosing 45.1 Est GFR ( Amer) 68.0 Est GFR (Non-Af Amer) 58.7 BUN/Creatinine Ratio 32.6 H Glucose 108 H Calcium 8.5 Magnesium 2.0 Diagnostic Findings Chest X-Ray 05/29/21 16:47 XR chest 1V portable CLINICAL HISTORY: recent CPR, severe chest wall pain; eval rib Fx. COMPARISON STUDY: 05/26/2021 TECHNIQUE: 1 view of the chest FINDINGS: Single frontal view of the chest demonstrates the heart size to be enlarged. The lungs are clear of alveolar opacities. There is no evidence for pleural effusion. There is no evidence for vascular congestion. There is no acute osseous pathology. Surgical clips are present from previous right axillary node dissection. IMPRESSION: 1. No acute cardiopulmonary disease. ACT 112: Negative or not required by law. Electronically signed by: Elijah Phillip M.D. 05/29/2021 5:30 PM KUB X-Ray 05/29/21 16:47 KUB HISTORY: Abdominal distention. ?fecal impaction v ileus? COMPARISON: None. FINDINGS: Moderate well-formed stool seen within the rectum. There is a left hip hemiarthroplasty. No evidence for bowel obstruction. No renal calculi. No ureteral calculi. Calcifications in the deep pelvis likely represent phleboliths. No pneumoperitoneum or pneumatosis. Degenerative changes within the lower lumbar spine. Suspect a trace left pleural effusion and left basilar linear densities. IMPRESSION: 1. No dilated loops of bowel to suggest an obstruction or ileus. 2. Moderate well-formed stool seen within the rectum. ACT 112: Negative or not required by law. Electronically signed by: Timur Flor M.D. 05/29/2021 5:28 PM PG Care Time/CCT Total # of Minutes Spent Total Time Spent with Patient: Total time spent is greater than 50% in coordination of care (as documented) at patient's floor/unit and/or counseling patient: Coding Level of Care Code 54083 Subseq Hosp Care Lvl 3 Diagnoses Cardiac arrest I46.9 Torsades de pointes I47.2 Bradycardia R00.1 Closed left hip fracture S72.002A Hypomagnesemia E83.42 Hypokalemia E87.6 Dementia F03.90 LBBB (left bundle branch block) I44.7 Hypertension I10 Hyperlipidemia E78.5 GERD (gastroesophageal reflux disease) K21.9 Constipation K59.00 DVT prophylaxis Z29.9 Chest wall pain R07.89
--- NOTE | 2021-05-29 17:30 | XRay Report ---
KUB HISTORY: Abdominal distention. ?fecal impaction v ileus? COMPARISON: None. FINDINGS: Moderate well-formed stool seen within the rectum. There is a left hip hemiarthroplasty. No evidence for bowel obstruction. No renal calculi. No ureteral calculi. Calcifications in the deep p lawson likely represent phleboliths. No pneumoperitoneum or pneumatosis. Degenerative changes within t he lower lumbar spine. Suspect a trace left pleural effusion and left basilar linear densities. IMPRESSION: 1. No dilated loops of bowel to suggest an obstruction or ileus. 2. Moderate well-formed stool seen within the rectum. ACT 112: Negative or not required by law. Electronically signed by: Timur Flor M.D. 05/29/2021 5:28 PM
--- NOTE | 2021-05-29 17:31 | XRay Report ---
XR chest 1V portable CLINICAL HISTORY: recent CPR, severe chest wall pain; eval rib Fx. COMPARISON STUDY: 05/26/2021 TECHNIQUE: 1 view of the chest FINDINGS: Single frontal view of the chest demonstrates the heart size to be enlarged. The lungs are clear of a lveolar opacities. There is no evidence for pleural effusion. There is no evidence for vascular conge stion. There is no acute osseous pathology. Surgical clips are present from previous right axillary n ode dissection. IMPRESSION: 1. No acute cardiopulmonary disease. ACT 112: Negative or not required by law. Electronically signed by: Elijah Phillip M.D. 05/29/2021 5:30 PM
[2021-05-29] MEDS ORDERED: SOD PHOSPHATE/SOD BIPHOSPHATE ENEMA 132 ML BTL PR STA (17:57)
[2021-05-29] MEDS: LORazepam 1 MG TAB PO SCH (19:56)
[2021-05-29] MEDS: ATORVASTATIN 10 MG TAB PO SCH (19:57)
[2021-05-29] MEDS: SODIUM CHLORIDE 0.9% 500 ML IV SCH (19:58)
[2021-05-29] MEDS ORDERED: ONDANSETRON 4 MG OD TAB PO PRN (20:12)
[2021-05-30] MEDS: SODIUM CHLORIDE 0.9% 500 ML IV SCH (04:56)
[2021-05-30 07:34] LABS: BUN Creatinine Ratio 46.8 (10-20); Calcium 8.3 mg/dl (8.5-10.1); Creatinine Clr Calc Pharmacy 51.5 ml/min; Est GFR (Non-African American) 69.9 ml/min
--- NOTE | 2021-05-30 07:41 | Progress Notes ---
DATE OF SERVICE: 05/30/2021. SUBJECTIVE: An 85-year-old white female now postop day 3 from a left cemented bipolar hip arthroplas ty for fracture. She looks to be doing reasonably well. No real new complaints this morning. Does not report any hip pain. OBJECTIVE: VITAL SIGNS: Temperature 36.9. Vital signs stable. GENERAL: Shows a pleasant, elderly female. She is sitting up in bed and looks reasonably comfortabl e. EXTREMITIES: Examination of the left hip reveals the dressing to be clean, dry and intact. Leg suleiman ths were equal. She can dorsiflex and plantarflex her foot appropriately. ASSESSMENT: An 85-year-old white female postoperative day 3 from a left cemented bipolar hip arthrop lasty for fracture, doing reasonably well. Hip is located. She is neurologically intact. PLAN: 1. DVT prophylaxis includes thigh-high TEDs, SCDs, and aspirin twice a day. 2. PT, OT, weightbear as tolerated. Left total hip protocol. She does need to obey hip precautions . 3. Medical management as per the medicine service. 4. Disposition: She is orthopedically okay for discharge any time medically stable. Any orthopedic questions can be directed to me at [phone]. Job ID: [id number]
[2021-05-30 07:51] LABS: Hematocrit (blood only) 31.3 % (37-47); Hemoglobin 11.1 g/dL (12.0-16.0); Mean Corpuscular Volume 98.7 fL (80-100); Mean Platelet Volume 11.3 fL (7.4-10.4); Platelet Count 127 K/uL (130-400); RDW Coefficient of Variation 13.5 % (11.5-14.5); RDW Standard Deviation 48.9 fL (36.4-46.3); Red Blood Count 3.17 M/uL (4.2-5.4); White Blood Count 10.88 K/uL (4.8-10.8)
[2021-05-30 07:55] LABS: Folate (Folic Acid) 11.99 ng/ml (>5.38)
[2021-05-30 08:00] LABS: Mean Corpuscular Hgb Conc 35.5 g/dL (32-36)
[2021-05-30] MEDS: ACETAMINOPHEN 500 MG TAB PO SCH ×3 (09:11→20:28)
[2021-05-30] MEDS: CHOLECALCIFEROL 1,000 UNITS 25 MCG TAB PO SCH (09:12)
[2021-05-30] MEDS: ASPIRIN 81 MG ECTAB PO SCH ×2 (09:12→20:29)
[2021-05-30] MEDS: CALCIUM 600MG + VIT D 400 IU TAB PO SCH (09:12)
[2021-05-30] MEDS: DICLOFENAC SOD 1% GEL 100 GM TUBE EXT SCH ×4 (09:13→20:30)
[2021-05-30] MEDS: SENNA 8.6 MG TAB PO SCH (09:14)
[2021-05-30] MEDS: POTASSIUM CHLORIDE CRTAB 20 MEQ TABCR PO SCH (09:16)
[2021-05-30] MEDS: MULTIVITAMIN TAB PO SCH (09:19)
[2021-05-30] MEDS: DOCUSATE SODIUM/SENNA 50/8.6MG TAB PO SCH (09:19)
[2021-05-30] MEDS: lisinopril 5 MG TAB PO SCH (09:19)
[2021-05-30] MEDS: PANTOprazole 40 MG TAB PO SCH ×2 (09:19→20:30)
[2021-05-30] MEDS: CYANOCOBALAMIN (B-12) 500 MCG TABLET PO SCH (10:16)
[2021-05-30] MEDS ORDERED: SOD PHOSPHATE/SOD BIPHOSPHATE ENEMA 132 ML BTL PR STA (11:47)
--- NOTE | 2021-05-30 11:49 | Hospitalist Progress Note ---
Date of Service May 30, 2021 Assessment & Plan (1) Constipation: Plan: Fleets that had been ordered yesterday was never administered. Will give today. Continue senna/colace. Suspect constipation is contributing to poor appetite amongst other factors. I spoke with pt's grand daughter today and she reports that chronically appetite/drinking has been a struggle for some time. (2) Cardiac arrest: Plan: Torsades de pointes in the setting of prolonged QTc on hospital day #1, about 8 hours after admission. Patient with significant hypomagnesemia and hypokalemia at the time of this event. Received CPR, 1 shock, 1 mg epi, amiodarone 300mg x 1, sodium bicarb, 2 grams IV mag. This led to ROSC. Transferred to ICU on 05/26 after arrest. ECHO with severe LVH, EF low normal at 50%. Beta melissa stopped while in ICU due to episodes of bradycardia. [facility] [place] Cardiology consulted - torsades felt 2nd to low K, low mag - in the setting of prolonged QTc. Meds associated with prolonged QTc were stopped including aricept & namenda. Anti-emetics also stopped. Has baseline LBBB. Cardiology not recommending any additional invasive testing due to comorbidities, dementia, hip Fx, etc. Cont telemetry. Fortunately she remains in NSR. K/mag are wnl. Suspect rib fractures and/or contusion from CPR - cont pain management for this. (3) Torsades de pointes: Plan: see #2 above. (4) Bradycardia: Plan: Occurred midnight 05/26/21. ?transient AV block vs increased vagal tone from nausea (had nausea at time of her bradycardia). Atenolol stopped. Cardiology not recommending additional testing at this time other than observation. (5) Closed left hip fracture: Plan: POD #3, s/p ORIF by Dr Zavala (cemented bipolar hip repair). DVT proph - asa 81mg BID. vit D insufficiency -cont vit D 2000 IU daily. Due to constipation issues change tylenol prn to scheduled 1gm TID. Pain meds prn. PT, OT when able. Will need higher level of care than [facility] I suspect. Prognosis is guarded in light of advanced dementia, cardiac issues, etc. (6) Hypomagnesemia: Plan: Replaced Resolved (7) Hypokalemia: Plan: Replaced Resolved Low K and low Mag - 2nd to poor oral intake on chronic basis outside the hospital ? (8) Dementia: Plan: Holding Aricept and Memantine due to QT prolongation and torsades Would not resume - limited benefit of these meds in the setting of advanced dementia (9) LBBB (left bundle branch block): Plan: Chronic, present several months prior to admission. Echocardiogram with severe LVH and low-nl EF of 50%. Due to advanced age, dementia, and guarded prognosis no ischemic w/u or invasive testing at this time. (10) Hypertension: Plan: Controlled with low-dose CLAY. (11) Hyperlipidemia: Plan: Continue Atorvastatin (12) GERD (gastroesophageal reflux disease): Plan: Continue Protonix BID (13) DVT prophylaxis: Plan: asa 81mg bid (14) Chest wall pain: Plan: highly suspicious for, at minimum, chest wall contusions from CPR/compressions. rib fractures/sternal fracture with high likelihood as well. cxr does not show fractures but still suspicious for such. could consider CT chest but this will not director of event management. Tylenol 1gm TID. Lidoderm patches. Voltaren gel QID. Hydrocodone prn. Plan: updated by phone 05/29 grand-daughter Lisa (is a pediatric medical assistant by training) updated on 05/30 Lisa understands that prognosis is guarded and that if Mrs Zambrano shows continued poor progress may need to consider palliative care suspect she will need SNF placement Admission and Anticipated Discharge Date Admission Date: May 26, 2021 Subjective tele without dysrhythmia NSR pt unable to provide any meaningful history with the exception of c/o chest wall pain nursing staff report she had 1 small stool overnight, then a tiny smear today eating very little drinking very little a bit agitated at times Review of Systems Review of Systems: Unobtainable due to cognitive status Physical Exam Physical Exam: gen - confused, oriented to person only, mildly agitated mouth - MM more moist today neck - no JVD heart - RRR, s1 s2, no murmur lungs - CTA b/l abd - mildly distended - slightly better than yesterday, BS+, NT, no HSM chest - very tender over costochondral junction on left along with multiple anterior ribs ext - no ankle edema b/l, pulses 2+ b/l skin - dressings intact L lateral hip neuro - motor 5/5 x 4 exts Results & Data Results & Data ([facility]) Vital Signs (Past 12 Hours) Vital Signs Temp Pulse Resp BP Pulse Ox 05/30/21 07:46 36.4 C L 84 25 H 147/60 H 100 05/30/21 03:25 36.9 C 67 19 127/54 L 100 Laboratory Results Laboratory Results - last 24 hr 05/30/21 05/30/21 05/30/21 06:25 06:25 06:25 WBC Cancelled RBC Cancelled Hgb Cancelled Hct Cancelled MCV Cancelled MCH Cancelled MCHC Cancelled RDW Std Deviation Cancelled RDW Coeff of Ria Cancelled Plt Count Cancelled MPV Cancelled Absolute Nucleated RBC Cancelled Nucleated RBC % (auto) Cancelled Platelet Estimate Cancelled Sodium 138 Potassium 4.0 Chloride 108 H Carbon Dioxide 25 Anion Gap 5 BUN 36 H Creatinine 0.77 Est Cr Clr Drug Dosing 51.5 Est GFR ( Amer) 81.0 Est GFR (Non-Af Amer) 69.9 BUN/Creatinine Ratio 46.8 H Glucose 92 Calcium 8.3 L Magnesium 2.0 Vitamin B12 284 Folate 11.99 05/30/21 07:27 WBC 10.88 H RBC 3.17 L Hgb 11.1 L Hct 31.3 L MCV 98.7 MCH 35.0 H MCHC 35.5 RDW Std Deviation 48.9 H RDW Coeff of Ria 13.5 Plt Count 127 L MPV 11.3 H Absolute Nucleated RBC Nucleated RBC % (auto) Platelet Estimate Sodium Potassium Chloride Carbon Dioxide Anion Gap BUN Creatinine Est Cr Clr Drug Dosing Est GFR ( Amer) Est GFR (Non-Af Amer) BUN/Creatinine Ratio Glucose Calcium Magnesium Vitamin B12 Folate PG Care Time/CCT Total # of Minutes Spent Total Time Spent with Patient: Total time spent is greater than 50% in coordination of care (as documented) at patient's floor/unit and/or counseling patient: Coding Level of Care Code 58573 Subseq Hosp Care Lvl 3 Diagnoses Constipation K59.00 Cardiac arrest I46.9 Torsades de pointes I47.2 Bradycardia R00.1 Closed left hip fracture S72.002A Hypomagnesemia E83.42 Hypokalemia E87.6 Dementia F03.90 LBBB (left bundle branch block) I44.7 Hypertension I10 Hyperlipidemia E78.5 GERD (gastroesophageal reflux disease) K21.9 DVT prophylaxis Z29.9 Chest wall pain R07.89
--- NOTE | 2021-05-30 13:16 | XRay Report ---
XR ankle RT 2V CLINICAL HISTORY: ankle pain, recent fall; eval Fx, CPPD, etc. COMPARISON STUDY: No previous studies for comparison. TECHNIQUE: 2 right ankle views FINDINGS: Bones: The bones are osteopenic. There is no evidence for an acute fracture or dislocation. There is a small calcaneal spur at the origin of the plantar fascia. There is no lytic or blastic lesion. Joints: The joint spaces are maintained. The bones are in anatomic alignment. Soft tissues: There is no focal soft tissue abnormality. There is no radiopaque foreign body. IMPRESSION: 1. No acute osseous pathology. 2. Osteopenia with no acute osseous pathology. ACT 112: Negative or not required by law. Electronically signed by: Elijah Phillip M.D. 05/30/2021 1:15 PM
[2021-05-30] MEDS: LORazepam 1 MG TAB PO SCH (20:28)
[2021-05-30] MEDS: ATORVASTATIN 10 MG TAB PO SCH (20:30)
[2021-05-31 07:02] LABS: BUN Creatinine Ratio 38.8 (10-20); Calcium 8.3 mg/dl (8.5-10.1); Creatinine Clr Calc Pharmacy 46.3 ml/min; Est GFR (African American) 71.9 ml/min; Magnesium 1.9 mg/dl (1.7-2.4); Potassium 3.7 mmol/L (3.5-5.1)
[2021-05-31] MEDS: ACETAMINOPHEN 500 MG TAB PO SCH ×3 (08:14→20:18)
[2021-05-31] MEDS: ASPIRIN 81 MG ECTAB PO SCH ×2 (08:15→20:19)
[2021-05-31] MEDS: CALCIUM 600MG + VIT D 400 IU TAB PO SCH (08:15)
[2021-05-31] MEDS: CYANOCOBALAMIN (B-12) 500 MCG TABLET PO SCH (08:16)
[2021-05-31] MEDS: CHOLECALCIFEROL 1,000 UNITS 25 MCG TAB PO SCH (08:16)
[2021-05-31] MEDS: DICLOFENAC SOD 1% GEL 100 GM TUBE EXT SCH ×4 (08:16→20:18)
[2021-05-31] MEDS: PANTOprazole 40 MG TAB PO SCH ×2 (08:17→20:19)
[2021-05-31] MEDS: lisinopril 5 MG TAB PO SCH (08:17)
[2021-05-31] MEDS: SENNA 8.6 MG TAB PO SCH (08:17)
[2021-05-31] MEDS: MULTIVITAMIN TAB PO SCH (08:17)
[2021-05-31] MEDS: POTASSIUM CHLORIDE CRTAB 20 MEQ TABCR PO SCH (08:33)
[2021-05-31] MEDS: DOCUSATE SODIUM/SENNA 50/8.6MG TAB PO SCH (08:34)
--- NOTE | 2021-05-31 11:42 | Progress Notes ---
DATE OF SERVICE: 05/31/2021. SUBJECTIVE: An 85-year-old white female now postop day 4 from left cemented bipolar hip arthroplasty for fracture. She seems to be doing okay. She says this morning that she still is just waking up. No particular pain while lying in bed. OBJECTIVE: VITAL SIGNS: Temperature 36.5. Vital signs are stable. GENERAL: Shows a pleasant, elderly female. She is lying in bed. She looks pretty comfortable. EXTREMITIES: Examination of the left hip reveals the dressing to be in place. There is a moderate a mount of serous drainage on the dressing. Her hip is located. Minimal swelling. She is neurologica lly intact. ASSESSMENT: An 85-year-old white female postop day 4 from left cemented bipolar hip arthroplasty for fracture, doing reasonably well. Moderate amount of serous drainage, which should gradually decreas e over time. PLAN: 1. DVT prophylaxis includes thigh-high TEDs, SCDs, and aspirin twice a day. 2. PT/OT. She can weight bear as tolerated. Left total hip protocol. 3. Pain control, seems to be doing okay with current pain regimen. 4. Wound care. We will just continue routine wound care to the left hip. Dry dressing once or twic e a day depending on saturation levels. 5. Medical management as per the medicine service. 6. Disposition: She is orthopedically okay for discharge any time medically stable. I need to see her back two to three weeks out from surgery date. Any orthopedic questions can be directed to me at [phone]. Job ID: [id number]
--- NOTE | 2021-05-31 18:39 | Hospitalist Progress Note ---
Date of Service May 31, 2021 Assessment & Plan (1) Constipation: Plan: resolved. cont senna + colace. if any other issues - add miralax. (2) Cardiac arrest: Plan: Torsades de pointes in the setting of prolonged QTc on hospital day #1, about 8 hours after admission. Patient with significant hypomagnesemia and hypokalemia at the time of this event. Received CPR, 1 shock, 1 mg epi, amiodarone 300mg x 1, sodium bicarb, 2 grams IV mag. This led to ROSC. Transferred to ICU on 05/26 after arrest. ECHO with severe LVH, EF low normal at 50%. Beta melissa stopped while in ICU due to episodes of bradycardia. [facility] [place] consulted - torsades felt 2nd to low K, low mag - in the setting of prolonged QTc. Meds associated with prolonged QTc were stopped including aricept & namenda. Anti-emetics also stopped. Has baseline LBBB. Cardiology not recommending any additional invasive testing due to comorbidities, dementia, hip Fx, etc. Cont telemetry. Remains in NSR. K/mag are wnl. Suspect rib fractures and/or contusion from CPR - cont pain management for this. (3) Torsades de pointes: Plan: see #2 above. (4) Bradycardia: Plan: Occurred midnight 05/26/21. ?transient AV block vs increased vagal tone from nausea (had nausea at time of her bradycardia). Atenolol stopped. Cardiology not recommending additional testing at this time other than observation. No further episodes. (5) Closed left hip fracture: Plan: POD #4, s/p ORIF by Dr Zavala (cemented bipolar hip repair). DVT proph - asa 81mg BID. vit D insufficiency -cont vit D 2000 IU daily. Cont scheduled 1gm TID. Oxycodone 2.5mg q6h prn. PT, OT when able. Likely to need SNF level of care after d/c. Prognosis is guarded in light of advanced dementia, cardiac issues, etc along with poor appetite/failure to thrive. (6) Hypomagnesemia: Plan: Replaced Resolved add mag oxide 400mg BID to maintain mag level as close to 2 as possible (7) Hypokalemia: Plan: Replaced Resolved Low K and low Mag at time of admission - suspect 2nd to poor oral intake on chronic basis (8) Dementia: Plan: Holding Aricept and Memantine due to QT prolongation and torsades Would not resume - limited benefit of these meds in the setting of advanced dementia (9) LBBB (left bundle branch block): Plan: Chronic, present several months prior to admission. Echocardiogram with severe LVH and low-nl EF of 50%. Due to advanced age, dementia, and guarded prognosis no ischemic w/u or invasive testing at this time. (10) Hypertension: Plan: Controlled with low-dose CLAY. (11) Hyperlipidemia: Plan: Continue Atorvastatin (12) GERD (gastroesophageal reflux disease): Plan: Continue Protonix BID (13) DVT prophylaxis: Plan: asa 81mg bid (14) Chest wall pain: Plan: highly suspicious for, at minimum, chest wall contusions from CPR/compressions. rib fractures/sternal fracture with high likelihood as well. cxr does not show fractures but still suspicious for such. could consider CT chest but this will not change management consultant. Tylenol 1gm TID. Lidoderm patches. Voltaren gel QID. Oxycodone prn. Plan: updated by phone 05/29/21 left message for him on 05/31/21 grand-daughter Lisa (is a medical physics researcher by training) updated on 05/30 Lisa understands that prognosis is guarded and that if Mrs Zambrano shows continued poor progress may need to consider palliative care suspect she will need SNF placement Admission and Anticipated Discharge Date Admission Date: May 26, 2021 Subjective tele stable overnight patient awake during the visit could not tell me where she was or why she was here she did not recall what had happened to her (hip fracture, cardiac arrest, etc) c/o low back pain, chest wall pain when she breathes, and left leg/hip pain staff report multiple BMs appetite remains very poor patient otherwise unable to give any other meaningful history Review of Systems Review of Systems: Unobtainable due to cognitive status Physical Exam Physical Exam: gen - confused, but more awake & sprightly today mouth - MMM neck - no JVD heart - RRR, s1 s2, no murmur lungs - CTA b/l abd - distension resolved; BS+, NT, no HSM chest - still operator batch or continuous over costochondral junction on left along with multiple anterior ribs b/l to palpation ext - no ankle edema b/l, pulses 2+ b/l skin - dressings intact L lateral hip; no bleeding Results & Data Results & Data ([facility]) Vital Signs (Past 12 Hours) Vital Signs Temp Pulse Pulse Resp BP Pulse Ox 05/31/21 15:26 36.8 C 83 15 146/76 H 93 05/31/21 15:06 89 05/31/21 08:00 36.5 C 67 90 17 165/76 H 96 Laboratory Results Laboratory Results - last 24 hr 05/30/21 05/31/21 07:27 06:16 ESR 7 Sodium 143 Potassium 3.7 Chloride 111 H Carbon Dioxide 27 Anion Gap 5 BUN 33 H Creatinine 0.85 Est Cr Clr Drug Dosing 46.3 Est GFR ( Amer) 71.9 Est GFR (Non-Af Amer) 62.0 BUN/Creatinine Ratio 38.8 H Glucose 86 Calcium 8.3 L Magnesium 1.9 PG Care Time/CCT Total # of Minutes Spent Total Time Spent with Patient: Total time spent is greater than 50% in coordination of care (as documented) at patient's floor/unit and/or counseling patient: Coding Level of Care Code 36958 Subseq Hosp Care Lvl 2 Diagnoses Constipation K59.00 Cardiac arrest I46.9 Torsades de pointes I47.2 Bradycardia R00.1 Closed left hip fracture S72.002A Hypomagnesemia E83.42 Hypokalemia E87.6 Dementia F03.90 LBBB (left bundle branch block) I44.7 Hypertension I10 Hyperlipidemia E78.5 GERD (gastroesophageal reflux disease) K21.9 DVT prophylaxis Z29.9 Chest wall pain R07.89
[2021-05-31] MEDS: LORazepam 1 MG TAB PO SCH (20:18)
[2021-05-31] MEDS: ATORVASTATIN 10 MG TAB PO SCH (20:19)
[2021-05-31] MEDS: MAGNESIUM OXIDE 400 MG TAB PO SCH (21:42)
[2021-06-01 07:19] LABS: BUN Creatinine Ratio 39.7 (10-20); Calcium 8.2 mg/dl (8.5-10.1); Est GFR (African American) 86.4 ml/min; Est GFR (Non-African American) 74.6 ml/min; Magnesium 1.7 mg/dl (1.7-2.4); Potassium 3.7 mmol/L (3.5-5.1)
--- NOTE | 2021-06-01 09:17 | Progress Notes ---
DATE OF SERVICE: 06/01/2021. SUBJECTIVE: An 85-year-old white female postop day 5 from a left cemented bipolar hip arthroplasty f or fracture. She did code the day before surgery. She is complaining just of chest pain only today. No other complaints. OBJECTIVE: VITAL SIGNS: Temperature is 36.8. Vital signs are stable. GENERAL: Shows a pleasant, elderly female. She is lying in bed, looks pretty comfortable. EXTREMITIES: Examination of the left hip reveals the leg lengths to be equal. Dressing is clean, dr y and intact. A fairly dry. She can dorsiflex and plantarflex her foot appropriately. ASSESSMENT: An 85-year-old white female, now 5 days out from a left cemented bipolar hip arthroplast y for fracture. Orthopedically doing reasonably well. Chest pain is likely related to her chest com pressions. Hip pain seems to be controlled. PLAN: 1. DVT prophylaxis includes thigh-high TEDs, SCDs, and aspirin twice a day. 2. PT, OT, weightbear as tolerated. Left total hip protocol. 3. Pain control, doing well with current pain regimen. 4. Disposition: She is orthopedically okay for discharge any time medically stable. I need to see her back two to three weeks out from surgery date. Any orthopedic questions can be directed to me at [phone]. Job ID: [id number]
[2021-06-01] MEDS: POTASSIUM CHLORIDE CRTAB 20 MEQ TABCR PO SCH (09:37)
[2021-06-01] MEDS: MAGNESIUM OXIDE 400 MG TAB PO SCH ×2 (09:37→20:09)
[2021-06-01] MEDS: ASPIRIN 81 MG ECTAB PO SCH ×2 (09:38→20:09)
[2021-06-01] MEDS: MULTIVITAMIN TAB PO SCH (09:38)
[2021-06-01] MEDS: DICLOFENAC SOD 1% GEL 100 GM TUBE EXT SCH ×4 (09:38→20:09)
[2021-06-01] MEDS: CALCIUM 600MG + VIT D 400 IU TAB PO SCH (09:39)
[2021-06-01] MEDS: lisinopril 5 MG TAB PO SCH (09:39)
[2021-06-01] MEDS: CHOLECALCIFEROL 1,000 UNITS 25 MCG TAB PO SCH (09:39)
[2021-06-01] MEDS: PANTOprazole 40 MG TAB PO SCH ×2 (09:39→20:08)
[2021-06-01] MEDS: CYANOCOBALAMIN (B-12) 500 MCG TABLET PO SCH (09:39)
[2021-06-01] MEDS: SENNA 8.6 MG TAB PO SCH (09:40)
[2021-06-01] MEDS: ACETAMINOPHEN 500 MG TAB PO SCH ×3 (09:53→20:08)
[2021-06-01] MEDS: DOCUSATE SODIUM/SENNA 50/8.6MG TAB PO SCH (09:53)
--- NOTE | 2021-06-01 18:29 | Hospitalist Progress Note ---
Date of Service June 01, 2021 Assessment & Plan (1) Closed left hip fracture: Plan: POD #5, s/p ORIF by Dr Zavala (cemented bipolar hip repair). DVT proph - asa 81mg BID. vit D insufficiency - vit D 2000 IU daily. Cont scheduled 1gm TID. Oxycodone 2.5mg q6h prn. PT, OT when able. Likely to need SNF level of care after d/c. Prognosis is guarded in light of advanced dementia, cardiac issues, etc along with poor appetite/failure to thrive as below. (2) Failure to thrive: Plan: Lengthy discussion held with pt's son-in-law and at bedside. They report that they moved from the [facility] to [place] in summer, 2020, to live at [facility]. She did poorly during the transition with very little PO intake in the fall 2020 and early winter 2021. Then, in the last 6-8 weeks, her appetite had picked up some - the best it had been in a long time. The eating habits we are seeing here are similar to what the family witnessed last fall. Her Alzheimer's Dementia is the biggest factor with her failure to thrive. I cannot exclude an underlying depression which would certainly worsen the situation. I recommended to the son-in-law to bring in whatever outside food she typically would eat. If her eating remains poor I would strongly recommend palliative care moving forward. Without good nutrition her surgical sites will heal poorly and her recovery from this hospitalization will be very poor as well. /son-in-law both voiced understanding. (3) Cardiac arrest: Plan: Torsades de pointes in the setting of prolonged QTc on hospital day #1, about 8 hours after admission. Patient with significant hypomagnesemia and hypokalemia at the time of this event. Received CPR, 1 shock, 1 mg epi, amiodarone 300mg x 1, sodium bicarb, 2 grams IV mag. This led to ROSC. Transferred to ICU on 05/26 after arrest. ECHO with severe LVH, EF low normal at 50%. Beta melissa stopped while in ICU d ue to episodes of bradycardia. [facility] Cardiology consulted - torsades felt 2nd to low K, low mag - in the setting of prolonged QTc. Meds associated with prolonged QTc were stopped including aricept & namenda. Anti-emetics also stopped. Has baseline LBBB. Cardiology not recommending any additional invasive testing due to comorbidities, dementia, hip Fx, etc. Cont telemetry. Remains in NSR. K/mag are wnl. Suspect rib fractures and/or contusion from CPR - cont pain management for this. (4) Constipation: Plan: resolved. cont senna + colace. (5) Chest wall pain: Plan: highly suspicious for, at minimum, chest wall contusions from CPR/compressions. rib fractures/sternal fracture with high likelihood as well. could consider CT chest but this will not oil change technician. Tylenol 1gm TID. Voltaren gel QID. Oxycodone prn. (6) Torsades de pointes: Plan: see #2 above. (7) Bradycardia: Plan: Occurred midnight 05/26/21. ?transient AV block vs increased vagal tone from nausea (had nausea at time of her bradycardia). Atenolol stopped. No further episodes. Cardiology didn't recommend any further w/u. (8) Hypomagnesemia: Plan: Replaced Resolved Cont mag oxide 400mg BID to maintain mag level as close to 2 as possible (9) Hypokalemia: Plan: Replaced Resolved Cont K supplement daily (10) Dementia: Plan: Alzheimer's disease - severe. Holding Aricept and Memantine due to QT prolongation and torsades Would not resume - limited benefit of these meds in the setting of advanced dementia Would treat for depression, however, with low-dose SSRI (zoloft, remeron, etc) (11) LBBB (left bundle branch block): Plan: Chronic, present several months prior to admission. Echocardiogram with severe LVH and low-nl EF of 50%. Due to advanced age, dementia, and guarded prognosis no ischemic w/u or invasive testing at this time. (12) Hypertension: Plan: Controlled with low-dose CLAY. (13) Hyperlipidemia: Plan: Continue Atorvastatin (14) GERD (gastroesophageal reflux disease): Plan: Continue Protonix BID (15) DVT prophylaxis: Plan: asa 81mg bid Plan: updated by phone 05/29/21 left message for him on 05/31/21 updated & son-in-law on 06/01/21 at bedside grand-daughter Lisa (is a chief medical physicist by training) updated on 05/30 Lisa understands that prognosis is guarded and that if Mrs Zambrano shows continued poor progress may need to consider palliative care Will need SNF placement unless hospice is chosen; in that case she potentially could return to [facility] with hospice if [facility] is agreeable to that type of scenario would need to involve social work to coordinate all of the above Admission and Anticipated Discharge Date Admission Date: May 26, 2021 Subjective no events overnight telemetry wnl - no dysrhythmia she continues to eat a few bites and take a few sips of liquid at each meal ONLY she continues with chest wall pain with any movement or deep breaths she was unable to provide any meaningful history as previous reports she was mainly in her wheelchair at [place] did limited amount of walking with walker - usually only when PT was with her Review of Systems Review of Systems: Unobtainable due to cognitive status Physical Exam Physical Exam: gen - pleasant confusion; awake & alert; follows commands mouth - MM slightly dry neck - no JVD heart - RRR, s1 s2, no murmur lungs - CTA b/l, decreased BS bases abd - soft, ND, BS+, NT, no HSM chest - lime mixer tender multiple locations over b/l chest ext - no ankle edema b/l, pulses 2+ b/l skin - dressings intact L lateral hip Results & Data Results & Data ([facility]) Vital Signs (Past 12 Hours) Vital Signs Temp Pulse Pulse Pulse Resp BP Pulse Ox 06/01/21 16:41 36.7 C 84 18 158/57 H 97 06/01/21 14:20 85 06/01/21 11:17 36.8 C 85 17 143/60 H 98 06/01/21 08:12 36.8 C 85 19 153/73 H 98 Laboratory Results Laboratory Results - last 24 hr 06/01/21 06:27 Sodium 142 Potassium 3.7 Chloride 112 H Carbon Dioxide 27 Anion Gap 3 BUN 29 H Creatinine 0.73 Est Cr Clr Drug Dosing 54.0 Est GFR ( Amer) 86.4 Est GFR (Non-Af Amer) 74.6 BUN/Creatinine Ratio 39.7 H Glucose 89 Calcium 8.2 L Magnesium 1.7 PG Care Time/CCT Total # of Minutes Spent Total Time Spent with Patient: Total time spent is greater than 50% in coordination of care (as documented) at patient's floor/unit and/or counseling patient: Coding Level of Care Code 40420 Subseq Hosp Care Lvl 3 Diagnoses Constipation K59.00 Cardiac arrest I46.9 Torsades de pointes I47.2 Bradycardia R00.1 Closed left hip fracture S72.002A Hypomagnesemia E83.42 Hypokalemia E87.6 Dementia F03.90 LBBB (left bundle branch block) I44.7 Hypertension I10 Hyperlipidemia E78.5 GERD (gastroesophageal reflux disease) K21.9 DVT prophylaxis Z29.9 Chest wall pain R07.89 Failure to thrive
[2021-06-01] MEDS: ATORVASTATIN 10 MG TAB PO SCH (20:09)
[2021-06-01] MEDS: LORazepam 1 MG TAB PO SCH (20:13)
[2021-06-02 07:07] LABS: Hematocrit (blood only) 25.8 % (37-47); Hemoglobin 8.8 g/dL (12.0-16.0); Mean Corpuscular Hemoglobin 33.5 pg (25-34); Mean Corpuscular Hgb Conc 34.1 g/dL (32-36); Mean Corpuscular Volume 98.1 fL (80-100); Mean Platelet Volume 10.6 fL (7.4-10.4); Platelet Count 164 K/uL (130-400); RDW Coefficient of Variation 13.3 % (11.5-14.5); RDW Standard Deviation 47.6 fL (36.4-46.3); Red Blood Count 2.63 M/uL (4.2-5.4); White Blood Count 8.86 K/uL (4.8-10.8)
[2021-06-02 07:29] LABS: BUN Creatinine Ratio 33.3 (10-20); Calcium 8.3 mg/dl (8.5-10.1); Creatinine Clr Calc Pharmacy 50.5 ml/min; Est GFR (African American) 79.8 ml/min; Est GFR (Non-African American) 68.8 ml/min; Magnesium 1.6 mg/dl (1.7-2.4); Potassium 3.7 mmol/L (3.5-5.1)
[2021-06-02] MEDS ORDERED: IRON SUCROSE 200 MG in 0.9 % SODIUM CHLORIDE 100 ML IV ONE (08:45)
--- NOTE | 2021-06-02 08:47 | Progress Notes ---
DATE OF SERVICE: 06/02/2021. SUBJECTIVE: An 85-year-old white female now postop day 6 from a left cemented bipolar hip arthroplas ty for fracture. She is lying in bed, looks pretty comfortable this morning. No real complaints. C ontinues to just have some chest discomfort. OBJECTIVE: VITAL SIGNS: Temperature 37.0. Vital signs are stable. GENERAL: Shows a pleasant, demented elderly female. Lying in bed, looks pretty comfortable. EXTREMITIES: Examination of the left hip reveals the dressing to be in place. She has some moderate drainage, but it decreased significantly. It is just very slightly blood-tinged serous fluid. Leg lengths were equal. Hip is located. She is neurologically intact. LABORATORY DATA: Hemoglobin 8.8. Hematocrit 25.8. Electrolytes are pending. ASSESSMENT: An 85-year-old white female postop day 6 from a left cemented bipolar hip arthroplasty f or fracture. Orthopedically, she is doing pretty well. Major complaints continues to be a chest mikal n, likely from chest compressions. Her serous drainage from her hip seems to be decreasing. PLAN: 1. DVT prophylaxis includes thigh-high TEDs, SCDs, and aspirin twice a day. 2. PT, OT, weightbear as tolerated. Left total hip protocol. Does need to obey hip precautions. 3. Medical management as per the medicine service. 4. Disposition: She is orthopedically okay for discharge any time medically stable. Any orthopedic questions can be directed to me at [phone]. Job ID: [id number]
[2021-06-02] MEDS: MAGNESIUM SULFATE / D5W 1 GM/100 ML BAG IV SCH ×2 (12:12→12:14)
[2021-06-02] MEDS: ACETAMINOPHEN 500 MG TAB PO SCH ×3 (12:12→20:27)
[2021-06-02] MEDS: ASPIRIN 81 MG ECTAB PO SCH ×2 (12:13→20:28)
[2021-06-02] MEDS: DOCUSATE SODIUM/SENNA 50/8.6MG TAB PO SCH (12:13)
[2021-06-02] MEDS: MAGNESIUM OXIDE 400 MG TAB PO SCH ×2 (12:13→20:27)
[2021-06-02] MEDS: CALCIUM 600MG + VIT D 400 IU TAB PO SCH (12:13)
[2021-06-02] MEDS: CYANOCOBALAMIN (B-12) 500 MCG TABLET PO SCH (12:13)
[2021-06-02] MEDS: CHOLECALCIFEROL 1,000 UNITS 25 MCG TAB PO SCH (12:13)
[2021-06-02] MEDS: DICLOFENAC SOD 1% GEL 100 GM TUBE EXT SCH ×4 (12:13→20:52)
[2021-06-02] MEDS: lisinopril 5 MG TAB PO SCH (12:13)
[2021-06-02] MEDS: MULTIVITAMIN TAB PO SCH (12:14)
[2021-06-02] MEDS: PANTOprazole 40 MG TAB PO SCH ×2 (12:14→20:29)
[2021-06-02] MEDS: SENNA 8.6 MG TAB PO SCH (12:14)
[2021-06-02] MEDS: POTASSIUM CHLORIDE CRTAB 20 MEQ TABCR PO SCH ×2 (12:14→20:29)
--- NOTE | 2021-06-02 19:10 | Hospitalist Progress Note ---
Date of Service June 02, 2021 Assessment & Plan (1) Closed left hip fracture: Plan: POD #6, s/p ORIF by Dr Zavala (cemented bipolar hip repair). DVT proph - asa 81mg BID. She refused her asa this am, however. vit D insufficiency - vit D 2000 IU daily if she will take it. Cont scheduled 1gm TID when able. Oxycodone 2.5mg q6h prn. PT, OT. Likely to need SNF level of care after d/c unless family opts for hospice; small possibility that her [facility] would take her back on hospice?? Prognosis is guarded in light of advanced dementia, cardiac issues, etc along with poor appetite/failure to thrive and now refusing her daily meds. (2) Failure to thrive: Plan: Lengthy discussion held with pt's son-in-law and at bedside yesterday. They report that they moved from the [facility] to [place] in summer, 2020, to live at [facility]. She did poorly during the transition with very little PO intake in the fall 2020 and early winter 2021. Then, in the last 6-8 weeks, her appetite had picked up some - the best it had been in a long time. The eating habits we are seeing here are similar to what the family witnessed last summer/fall. Her Alzheimer's Dementia is the biggest factor with her failure to thrive. I cannot exclude an underlying depression which would certainly worsen the situation. Today I had palliative care discussions with the pt's , 2 sons (1 was on the phone), and his granddaughter who is currently [place]. See below. (3) Cardiac arrest: Plan: Torsades de pointes in the setting of prolonged QTc on hospital day #1, about 8 hours after admission. Patient with significant hypomagnesemia and hypokalemia at the time of this event. Received CPR, 1 shock, 1 mg epi, amiodarone 300mg x 1, sodium bicarb, 2 grams IV mag. This led to ROSC. Transferred to ICU on 05/26 after arrest. ECHO with severe LVH, EF low normal at 50%. Beta melissa stopped while in ICU due to episodes of bradycardia. [facility] Cardiology consulted - torsades felt 2nd to low K, low mag - in the setting of prolonged QTc. Meds associated with prolonged QTc were stopped including aricept & namenda. Anti-emetics also stopped. Has baseline LBBB. Cardiology not recommending any additional invasive testing due to comorbidities, dementia, hip Fx, etc. Cont telemetry. Remains in NSR. K is nl; mag is mildly low today. Unfortunately she refused both her PO & IV meds. Suspect rib fractures and/or contusion from CPR - cont pain management for this if she will allow meds to be given. (4) Constipation: Plan: resolved. cont senna + colace when able. (5) Chest wall pain: Plan: highly suspicious for, at minimum, chest wall contusions from CPR/compressions. rib fractures/sternal fracture with high likelihood as well. could consider CT chest but this will not tire changer aircraft. Tylenol 1gm TID. Voltaren gel QID. Oxycodone prn. (6) Torsades de pointes: Plan: see #2 above. (7) Bradycardia: Plan: Occurred midnight 05/26/21. ?transient AV block vs increased vagal tone from nausea (had nausea at time of her bradycardia). Atenolol stopped. No further episodes. Cardiology didn't recommend any further w/u. (8) Hypomagnesemia: Plan: Replaced Low again today see above Cont mag oxide 400mg BID if she will take it (9) Hypokalemia: Plan: Replaced Resolved Cont K supplement daily if able (10) Dementia: Plan: Alzheimer's disease - severe. Holding Aricept and Memantine due to QT prolongation and torsades Would not resume - limited benefit of these meds in the setting of advanced dementia Consider treatment for depression, however, with low-dose SSRI (zoloft, remeron, etc) (11) LBBB (left bundle branch block): Plan: Chronic, present several months prior to admission. Echocardiogram with severe LVH and low-nl EF of 50%. Due to advanced age, dementia, and guarded prognosis no ischemic w/u or invasive testing at this time. (12) Hypertension: Plan: Would stop if she transitions to hospice (13) Hyperlipidemia: Plan: Would stop if she transitions to hospice (14) GERD (gastroesophageal reflux disease): Plan: Continue Protonix BID as able (15) DVT prophylaxis: Plan: Continue asa 81mg bid as able Plan: updated by phone 05/29/21 grand-daughter Lisa (is a biomedical engineering technician by training) updated on 05/30 left message for him on 05/31/21 updated & son-in-law on 06/01/21 at bedside 06/02/21 - lengthy palliative discussion with , 2 sons, and granddaughter code status confirmed to be DNR/DNI - changed in computer discussed options for care -- continuing routine care in the hospital for a few more days to see if she has any significant improvement vs transitioning her to SNF with hopes that she can participate in rehab and improve (with some palliative care to address pain, etc) vs enrolling her in hospice before discharge. If hospice is pursued by her family this could be done at any SNF or possibly [facility] (would need to have social work reach out to [place] to see if this is truly an option). I explained that if they decided to have her placed at a SNF with intentions to pursue PT/OT that I don't think it would go well and that we would likely be discussing hospice again in the very near future. Explained further that her lack of appetite, refusing meds, and not tolerating even turning in bed portends a very poor prognosis. I mentioned that her best option would be hospice at this time. I briefly discussed POLST form, differences between palliative care and hospice, etc. Family will discuss options tonight and let us know their wishes early this week. Will obtain formal palliative care consultation in the am. Total time today about 70 minutes with >50% of which was spent at bedside doing counseling on end of life care Admission and Anticipated Discharge Date Admission Date: May 26, 2021 Subjective tele overnight wnl during AM med pass the patient refused all PO meds she also refused IV venofer and IV magnesium ate very little at breakfast or lunch ate a [employer] chocolate (wrapper was on her table during the visit) for dinner ate 8 spoonfuls of food per her son, Pierce patient was pleasantly confused during my bedside visit she didn't recall any events from the hospitalization when I told her that her was going to visit today she said "oh, good, I haven't seen him in a long time" (he was here yesterday pm) she c/o chest wall discomfort several times during the visit denied LLE pain denied pain any other location Review of Systems Review of Systems: gen - ongoing anorexia cv - chest wall pain pulm - no cough GI - no pain; moving bowels per staff Physical Exam Physical Exam: gen - pleasant confusion; awake & alert mouth - MM slightly dry neck - no JVD heart - RRR, s1 s2, no murmur lungs - CTA b/l, decreased BS bases abd - soft, ND, BS+, NT, no HSM chest - ammonia distiller multiple locations to palpation especially on left ext - no ankle edema b/l, pulses 2+ b/l skin - dressings intact L lateral hip but soaked with serous fluid Results & Data Results & Data ([facility]) Vital Signs (Past 12 Hours) Vital Signs Temp Pulse Pulse Pulse Resp BP Pulse Ox 06/02/21 16:00 90 06/02/21 11:36 105 H 18 97 06/02/21 08:00 85 06/02/21 07:16 37.0 C 73 18 151/66 H 98 Laboratory Results Laboratory Results - last 24 hr 06/02/21 06/02/21 06:19 06:19 WBC 8.86 RBC 2.63 L Hgb 8.8 L Hct 25.8 L MCV 98.1 MCH 33.5 MCHC 34.1 RDW Std Deviation 47.6 H RDW Coeff of Ria 13.3 Plt Count 164 MPV 10.6 H Sodium 142 Potassium 3.7 Chloride 110 H Carbon Dioxide 26 Anion Gap 6 BUN 26 H Creatinine 0.78 Est Cr Clr Drug Dosing 50.5 Est GFR ( Amer) 79.8 Est GFR (Non-Af Amer) 68.8 BUN/Creatinine Ratio 33.3 H Glucose 89 Calcium 8.3 L Magnesium 1.6 L PG Care Time/CCT Total # of Minutes Spent Total Time Spent with Patient: Total time spent is greater than 50% in coordination of care (as documented) at patient's floor/unit and/or counseling patient: Prolonged Care Time Prolonged Care Time: Yes 70 Coding Level of Care Code 30523 Subseq Hosp Care Lvl 3 (25 - SIGNIFICANT, SEPARATELY IDENTIFIABLE ) Diagnoses Closed left hip fracture S72.002A Failure to thrive Cardiac arrest I46.9 Constipation K59.00 Chest wall pain R07.89 Torsades de pointes I47.2 Bradycardia R00.1 Hypomagnesemia E83.42 Hypokalemia E87.6 Dementia F03.90 LBBB (left bundle branch block) I44.7 Hypertension I10 Hyperlipidemia E78.5 GERD (gastroesophageal reflux disease) K21.9 DVT prophylaxis Z29.9 Additional Codes Prolonged Care Time - Prolonged Care Time: Yes ([id number]) Time Spent (min) 70
[2021-06-02] MEDS: ATORVASTATIN 10 MG TAB PO SCH (20:29)
[2021-06-02] MEDS: LORazepam 1 MG TAB PO SCH (20:55)
[2021-06-03 07:14] LABS: BUN Creatinine Ratio 33.8 (10-20); Calcium 8.3 mg/dl (8.5-10.1); Creatinine Clr Calc Pharmacy 53.4 ml/min; Est GFR (Non-African American) 73.4 ml/min; Magnesium 1.7 mg/dl (1.7-2.4); Potassium 3.7 mmol/L (3.5-5.1)
[2021-06-03] MEDS: ACETAMINOPHEN 500 MG TAB PO SCH ×4 (09:10→21:00)
[2021-06-03] MEDS: CALCIUM 600MG + VIT D 400 IU TAB PO SCH (09:10)
[2021-06-03] MEDS: ASPIRIN 81 MG ECTAB PO SCH ×2 (09:10→20:12)
[2021-06-03] MEDS: POTASSIUM CHLORIDE CRTAB 20 MEQ TABCR PO SCH ×3 (09:11→20:32)
[2021-06-03] MEDS: MULTIVITAMIN TAB PO SCH (09:11)
[2021-06-03] MEDS: DICLOFENAC SOD 1% GEL 100 GM TUBE EXT SCH ×4 (09:11→20:13)
[2021-06-03] MEDS: lisinopril 5 MG TAB PO SCH (09:11)
[2021-06-03] MEDS: SENNA 8.6 MG TAB PO SCH (09:11)
[2021-06-03] MEDS: PANTOprazole 40 MG TAB PO SCH ×2 (09:11→20:13)
[2021-06-03] MEDS: CYANOCOBALAMIN (B-12) 500 MCG TABLET PO SCH (09:11)
[2021-06-03] MEDS: CHOLECALCIFEROL 1,000 UNITS 25 MCG TAB PO SCH (09:11)
[2021-06-03] MEDS: MAGNESIUM OXIDE 400 MG TAB PO SCH ×2 (09:11→20:13)
[2021-06-03] MEDS: DOCUSATE SODIUM/SENNA 50/8.6MG TAB PO SCH (09:11)
--- NOTE | 2021-06-03 09:14 | Progress Notes ---
DATE OF SERVICE: 06/03/2021. SUBJECTIVE: An 85-year-old white female now postop day 7 from a left cemented bipolar hip arthroplas ty for fracture. No new complaints today. Denies any real significant pain. Just kind of wakening up. OBJECTIVE: VITAL SIGNS: Temperature is 36.7. Vital signs are stable. GENERAL: Shows a pleasant, elderly female. She is just waking up this morning and slow to respond t o anything. EXTREMITIES: Examination of the left hip reveals the dressing to be clean, dry and intact. No detec table drainage. She is neurologically intact. Her hip is located. ASSESSMENT: An 85-year-old white female now a week out from a left cemented bipolar hip arthroplasty for fracture. Orthopedically, she is stable. PLAN: 1. DVT prophylaxis includes thigh-high TEDs, SCDs, and aspirin twice a day. 2. PT, OT, weightbear as tolerated. Left total hip protocol. 3. Medical management as per the medicine service. 4. Disposition: She is orthopedically okay for discharge any time medically stable. I need to see her back two to three weeks out from surgery date. Any orthopedic questions can be directed to me at [phone]. Job ID: [id number]
--- NOTE | 2021-06-03 12:55 | Palliative Care Consultation ---
Date of Consultation June 03, 2021 Assessment & Plan (1) Chest wall pain: as a result of CPR. She did agree to taking prn oxycodone for me. Discussed with RN who will try to give it to her. (2) Failure to thrive: Refusing po. (3) Palliative care encounter: Overall prognosis is concerning given her failure to thrive, cardiac issues after a hip fracture. Dr. Moreau has spoken with family about placement at SNF with attempt at PT, though with her dementia and limited compliance, that would be difficult. Family is considering hospice care. I spoke with her son, Pierce, on the phone to f/u after their conversation with Dr. Moreau. He and his brother are in favor of a more comfort focused approach to her care, however, her , has some reservations about hospice care. Her other son, Robel, will be arriving from out of town late tonight and they would like to have a family meeting. Will meet with family tomorrow at 1230 to clarify goals. (4) Fracture of hip, left, closed: Encounter type: initial encounter Qualified Code(s): S72.002A - Fracture of unspecified part of neck of left femur, initial encounter for closed fracture (5) Torsades de pointes: (6) Alzheimer disease: History of Present Illness Reason for Consultation: goals of care Requesting Physician: Dr. Moreau Attending Physician: Frank Moreau History of Present Illness 85 yo lady with dementia who resides at [facility] with her . She had a fall and sustained a left hip fracture and was admitted for ORIF. Prior to her surgery, she had a cardiac arrest with torsades and was successfully defibrillated. She has had careful monitoring and replacement of potassium and magnesium and adjustment of medications to avoid QT prolongation. She did have left hip replacement but has been refusing medication and treatment, including pain medications and food. Her weight has decreased 11 lbs since her admission on 05/26. She has worked with PT at times but is dependent for repositioning in bed and is a 2 person assist for sit to stand. She is awake and answers some questions for me but is not oriented to place or time. She does not recall her hip fracture. She complains of pain in her chest when she moves or takes a big breath. Allergies Allergy/AdvReac Type Severity Reaction Status Date / Time procaine [From Novocain] Allergy Verified 05/09/21 12:36 Home Medications Medication Instructions Recorded Confirmed Type atenolol 25 mg tablet 25 mg PO QAM 03/12/21 05/26/21 History atorvastatin 10 mg tablet 10 mg PO PM 03/12/21 05/26/21 History calcium carbonate 600 mg-vitamin 1 tab PO DAILY 03/12/21 05/26/21 History D3 20 mcg (800 unit) chewable tablet (Caltrate 600 plus D) donepezil 10 mg tablet 10 mg PO QPM 03/12/21 05/26/21 History lorazepam 1 mg tablet 1 mg PO QPM 03/12/21 05/26/21 History meclizine 25 mg tablet 25 mg PO Q8H PRN 03/12/21 05/26/21 History multivitamin 1 tab PO DAILY 03/12/21 05/26/21 History potassium chloride 20 mEq 20 meq PO DAILY 03/12/21 05/26/21 History tablet,extended release ondansetron HCl 4 mg tablet 4 mg PO Q8H PRN 04/01/21 05/26/21 History pantoprazole 40 mg tablet,delayed 40 mg PO BID #180 tab 04/09/21 05/26/21 Rx release loperamide 2 mg tablet 2 mg PO Q4H PRN 05/03/21 05/26/21 History memantine 5 mg tablet 5 mg PO BID 05/03/21 05/26/21 History aspirin 81 mg capsule 81 mg PO DAILY 05/09/21 05/26/21 History Patient History Medical History Acute kidney failure Alzheimer disease Anorexia Anxiety disorder Ataxic gait Dementia Dizziness and giddiness Hyperlipidemia Hypertension LBBB (left bundle branch block) Muscle weakness Surgical History Surgical history unknown Social History Smoking Status: Never smoker Second Hand Exposure: No; Hx Alcohol Use: No Hx Substance Use: No Preferred Language: Bulgarian Communication Ability: Effective Strategic Manager Required: No Beliefs That Will Affect Care: None marital status: Current Living Situation: Residential Feels Safe at Home: Yes Assistive Devices: None Review of Systems Review of Systems: Unobtainable due to cognitive status [place] Symptom Assessment Scale Pain 1/3 Dyspnea 0/3 Palliative Performance Score 40% Physical Exam Constitutional: + thin and + frail appearing; no acute distress Respiratory: normal respiratory effort; no labored breathing Cardiovascular: Rate/Rhythm: regular rate and regular rhythm Musculoskeletal: Extremities: + muscle atrophy Skin: warm and dry Neurologic: awake and + confused Results & Data ([facility]) Vital Signs (Past 12 Hours) Vital Signs Temp Pulse Pulse Pulse Resp BP Pulse Ox 06/03/21 11:30 98.4 F 81 18 150/87 H 96 06/03/21 09:50 77 06/03/21 07:42 98.1 F 84 16 158/73 H 98 06/03/21 04:42 98.6 F 102 H 16 159/76 H 97 PG Care Time/CCT Total # of Minutes Spent Total Time Spent: 45 Total Time Spent with Patient: Total time spent is greater than 50% in coordination of care (as documented) at patient's floor/unit and/or counseling patient: symptom management, goals of care Coding Level of Care Code 41864 Initial Inpt Care Lvl 1 Diagnoses Chest wall pain R07.89 Failure to thrive Palliative care encounter Z51.5 Fracture of hip, left, closed S72.002A Encounter type: initial encounter Torsades de pointes I47.2 Alzheimer disease G30.9; F02.80
[2021-06-03] MEDS: oxyCODONE HCL IR 5 MG TAB (IMMEDIATE RELEASE) PO PRN (14:13)
--- NOTE | 2021-06-03 16:30 | XRay Report ---
LEFT ANKLE 2 VIEWS HISTORY: L ankle pain, s/p fall; eval Fx COMPARISON: None. FINDINGS: There is no fracture or dislocation. Mild anterior lateral soft tissue swelling. No radiopa que foreign bodies. IMPRESSION: Mild soft tissue swelling within the left ankle. No acute fractures. ACT 112: Negative or not required by law. Electronically signed by: Timur Flor M.D. 06/03/2021 4:28 PM
--- NOTE | 2021-06-03 17:46 | Hospitalist Progress Note ---
Date of Service June 03, 2021 Assessment & Plan (1) Closed left hip fracture: Plan: POD #7, s/p ORIF by Dr Zavala (cemented bipolar hip repair). DVT proph - asa 81mg BID. She is continuing to refuse her asa however. Will stop the asa if family decides to implement hospice. vit D insufficiency - will stop vitamin D if family elects to pursue hospice. Cont scheduled 1gm TID when able. Oxycodone 2.5mg q6h prn. PT, OT - would cancel tomorrow if family elects for hospice. Rehab potential is very, very poor if at all. Likely to need SNF level of care after d/c unless family opts for hospice; social work confirmed with [facility] today they would take her back on hospice. Prognosis is very poor in light of advanced dementia, cardiac issues, etc along with poor appetite/failure to thrive and now refusing many of her daily meds. (2) Failure to thrive: Plan: Lengthy discussion held with pt's son-in-law and at bedside this weekend. They report that they moved from the [facility] to [place] in summer, 2020, to live at [facility]. She did poorly during the transition with very little PO intake in the fall 2020 and early winter 2021. Then, in the last 6-8 weeks, her appetite had picked up some - the best it had been in a long time. The eating habits we are seeing here are similar to what the family witnessed last summer/fall. Her Alzheimer's Dementia is the biggest factor with her failure to thrive. I cannot exclude an underlying depression which would certainly worsen the situation. Extensive palliative care discussion held on 06/02/21 with the pt's , 2 sons (1 was on the phone), and his granddaughter who is currently overseas in [place]. See below. Dr Vega saw patient in consultation. She will be meeting with the family tomorrow at 1230 to address goals of care and determine if hospice will be pursued. (3) Cardiac arrest: Plan: Hospital day #1 -- Torsades de pointes in the setting of prolonged QTc. Occured about 8 hours after admission. Patient with significant hypomagnesemia and hypokalemia at the time of this event. Received CPR, 1 shock, 1 mg epi, amiodarone 300mg x 1, sodium bicarb, 2 grams IV mag. This led to ROSC. Transferred to ICU on 05/26 after arrest. ECHO with severe LVH, EF low normal at 50%. Beta melissa stopped while in ICU due to episodes of bradycardia. [facility] Cardiology consulted - torsades felt 2nd to low K, low mag - in the setting of prolonged QTc. Meds associated with prolonged QTc were stopped including aricept & namenda. Anti-emetics also stopped. Has baseline LBBB. Cardiology not recommending any additional invasive testing due to comorbidities, dementia, hip Fx, etc. Has remained in NSR since the ICU. Unfortunately she is refusing both her PO & IV meds and thus I anticipate her K/mag will fall putting her at risk of torsades once again. Suspect multiple rib fractures and/or contusion from CPR - cont pain management for this if she will allow meds to be given. She could even have a sternal Fx. (4) Constipation: Plan: moving bowels per staff. (5) Chest wall pain: Plan: highly suspicious for, at minimum, chest wall contusions from CPR/compressions. rib fractures/sternal fracture with high likelihood as well. could consider CT chest but this will not tire changer aircraft. If family elects for hospice would defer any advanced imaging. Tylenol 1gm TID. Voltaren gel QID. Oxycodone prn. If she refuses her oral pain meds will make morphine available to her IV. (6) Torsades de pointes: Plan: see #2 above. (7) Bradycardia: Plan: Occurred midnight 05/26/21. ?transient AV block vs increased vagal tone from nausea (had nausea at time of her bradycardia). Atenolol stopped. No further episodes. Cardiology didn't recommend any further w/u. (8) Hypomagnesemia: Plan: Cont mag oxide 400mg BID if she will take it (9) Hypokalemia: Plan: Replaced Resolved Cont K supplement daily if able (10) Dementia: Plan: Alzheimer's disease - severe. Holding Aricept and Memantine due to QT prolongation and torsades Would not resume - limited benefit of these meds in the setting of advanced dementia (and potential transition to hospice) Consider treatment for depression, however, with low-dose SSRI (zoloft, remeron, etc) (11) LBBB (left bundle branch block): Plan: Chronic, present several months prior to admission. Echocardiogram with severe LVH and low-nl EF of 50%. Due to advanced age, dementia, and guarded prognosis no ischemic w/u or invasive testing at this time. (12) Hypertension: Plan: Would stop lisinopril if she transitions to hospice (13) Hyperlipidemia: Plan: Would stop statin if she transitions to hospice (14) GERD (gastroesophageal reflux disease): Plan: Continue Protonix BID as able (15) DVT prophylaxis: Plan: Continue asa 81mg bid as able (16) Left ankle pain: Plan: ankle x-rays obtained -- no fracture. no CPPD crystals. gout? ankle sprain from recent fall? other? asked staff to place 2gm voltaren gel on ankle. consider a low-dose prednisone course (10mg/day for a few days). Plan: updated by phone 05/29/21 grand-daughter Lisa (is a medical office secretary by training) updated on 05/30 left message for on 05/31/21 on voicemail updated & son-in-law on 06/01/21 at bedside 06/02/21 - lengthy palliative discussion with , 2 sons, and granddaughter code status confirmed to be DNR/DNI discussed options for care -- continuing routine care in the hospital for a few more days to see if she has any significant improvement vs transitioning her to SNF with hopes that she can participate in rehab and improve (with ongoing palliative care to address pain, etc) vs enrolling her in hospice before hospital discharge. I explained that if they decided to have her placed at a SNF with intentions to pursue PT/OT that I don't think it would go well and that we would likely be discussing hospice again in the very near future. Explained further that her lack of appetite, refusing meds, and not tolerating even turning in bed portends a very poor prognosis. I mentioned that her best option would be hospice at this time. 06/03/21 - left message for Lyly Zambrano, grand-daughter ([phone]) - she is currently overseas in [place] attending phD program 06/03/21 - left message for Pierce Zambrano, son, on his voicemail family meeting tomorrow on 06/[address] Vega from palliative & the pt's family Admission and Anticipated Discharge Date Admission Date: May 26, 2021 Subjective patient again declined most of her AM meds today she did not eat breakfast ate a modest amount at lunch-time during my visit she complained of chest wall pain, and also L ankle pain denied L hip pain she could not tell me why she was in the hospital or what happened to her she could not provide any additional meaningful history staff report no issues Review of Systems Review of Systems: Unobtainable due to cognitive status Physical Exam Physical Exam: gen - pleasant confusion; awake & alert; cooperative, not agitated mouth - MM dry neck - no JVD heart - RRR, s1 s2, no murmur lungs - CTA b/l, decreased BS bases abd - soft, ND, BS+, NT, no HSM chest - tender to palpation over various locations on upper chest; ?subcutaneous emphysema left upper chest (mild, if truly there) skin - dressings intact L lateral hip musculo - left ankle - tender to palpation over talar dome/ankle mortis anteriorly; no pain over medial or lateral malleolus to palpation; passive flexion/extension reproduces the pain in talar dome/mortise; mild swelling over this region; L mid-foot without synovitis Results & Data Results & Data ([facility]) Vital Signs (Past 12 Hours) Vital Signs Temp Pulse Pulse Pulse Resp BP Pulse Ox 06/03/21 16:23 86 06/03/21 15:41 91 H 16 147/59 H 100 06/03/21 11:30 36.9 C 81 18 150/87 H 96 06/03/21 09:50 77 06/03/21 07:42 36.7 C 84 16 158/73 H 98 Laboratory Results Laboratory Results - last 24 hr 06/03/21 06:22 Sodium 141 Potassium 3.7 Chloride 108 H Carbon Dioxide 27 Anion Gap 6 BUN 25 H Creatinine 0.74 Est Cr Clr Drug Dosing 53.4 Est GFR ( Amer) 85.0 Est GFR (Non-Af Amer) 73.4 BUN/Creatinine Ratio 33.8 H Glucose 90 Calcium 8.3 L Magnesium 1.7 Diagnostic Findings Ankle X-Ray 06/03/21 15:24 LEFT ANKLE 2 VIEWS HISTORY: L ankle pain, s/p fall; eval Fx COMPARISON: None. FINDINGS: There is no fracture or dislocation. Mild anterior lateral soft tissue swelling. No radiopaque foreign bodies. IMPRESSION: Mild soft tissue swelling within the left ankle. No acute fractures. ACT 112: Negative or not required by law. Electronically signed by: Timur Flor M.D. 06/03/2021 4:28 PM PG Care Time/CCT Total # of Minutes Spent Total Time Spent with Patient: Total time spent is greater than 50% in coordination of care (as documented) at patient's floor/unit and/or counseling patient: Coding Level of Care Code 66628 Subseq Hosp Care Lvl 2 Diagnoses Closed left hip fracture S72.002A Failure to thrive Cardiac arrest I46.9 Constipation K59.00 Chest wall pain R07.89 Torsades de pointes I47.2 Bradycardia R00.1 Hypomagnesemia E83.42 Hypokalemia E87.6 Dementia F03.90 LBBB (left bundle branch block) I44.7 Hypertension I10 Hyperlipidemia E78.5 GERD (gastroesophageal reflux disease) K21.9 DVT prophylaxis Z29.9 Left ankle pain M25.572
[2021-06-03] MEDS: LORazepam 1 MG TAB PO SCH (20:11)
[2021-06-03] MEDS: ATORVASTATIN 10 MG TAB PO SCH (20:13)
[2021-06-03] MEDS: MoRPHine SULFATE 2 MG/ML CARP IV PRN (20:26)
[2021-06-04] MEDS: MoRPHine SULFATE 2 MG/ML CARP IV PRN (05:10)
[2021-06-04] MEDS: ASPIRIN 81 MG ECTAB PO SCH ×2 (09:02→21:34)
[2021-06-04] MEDS: DICLOFENAC SOD 1% GEL 100 GM TUBE EXT SCH ×4 (09:02→21:35)
[2021-06-04] MEDS: ACETAMINOPHEN 500 MG TAB PO SCH ×3 (09:03→21:34)
[2021-06-04] MEDS: POTASSIUM CHLORIDE CRTAB 20 MEQ TABCR PO SCH ×2 (09:03→21:34)
[2021-06-04] MEDS: MAGNESIUM OXIDE 400 MG TAB PO SCH ×2 (09:04→21:34)
[2021-06-04] MEDS: CYANOCOBALAMIN (B-12) 500 MCG TABLET PO SCH (09:04)
[2021-06-04] MEDS: PANTOprazole 40 MG TAB PO SCH ×2 (09:04→21:34)
[2021-06-04] MEDS: MULTIVITAMIN TAB PO SCH (09:05)
[2021-06-04] MEDS: lisinopril 5 MG TAB PO SCH (09:05)
[2021-06-04] MEDS: CALCIUM 600MG + VIT D 400 IU TAB PO SCH (09:05)
[2021-06-04] MEDS: CHOLECALCIFEROL 1,000 UNITS 25 MCG TAB PO SCH (09:06)
[2021-06-04] MEDS: SENNA 8.6 MG TAB PO SCH (09:06)
--- NOTE | 2021-06-04 09:07 | Progress Notes ---
DATE OF SERVICE: 06/04/2021. SUBJECTIVE: An 85-year-old white female, now 8 days out from a left cemented bipolar hip arthroplast y for fracture. She seems to be getting better. She denies any significant pain this morning. OBJECTIVE: VITAL SIGNS: Temperature is 36.9. Vital signs are stable. GENERAL: Shows a pleasant, elderly female. She is demented, sitting up in bed and looks comfortable . She does follow commands and answers questions. EXTREMITIES: Examination of the left hip reveals the dressing to be in place. Much less drainage. Thigh is soft and supple. Hip is located. She is neurologically intact. ASSESSMENT: An 85-year-old white female, now 8 days out from a left cemented bipolar hip arthroplast y for fracture, doing reasonably well from the orthopedic standpoint. PLAN: 1. DVT prophylaxis includes thigh-high TEDs, SCDs, and aspirin twice a day. 2. PT/OT. She can fully weightbear on this left leg. Needs to obey hip precautions. 3. Pain control. Apparently appears fairly comfortable. No need for change. Limit narcotics. 4. Medical management as per the medicine service. There is some discussion as far as hospice suppo rtive care. 5. Disposition: She is orthopedically okay for discharge any time medically stable. I need to see her back two to three weeks out from surgery date. Any orthopedic questions can be directed to me at [phone]. Job ID: [id number]
[2021-06-04] MEDS: DOCUSATE SODIUM/SENNA 50/8.6MG TAB PO SCH (09:08)
--- NOTE | 2021-06-04 10:03 | Palliative Care Progress Note ---
Date of Service June 04, 2021 Assessment & Plan (1) Chest wall pain: Plan: Diclofenac gel, tylenol and oxycodone available. She seems more willing to take medications today. (2) Failure to thrive: Plan: Appetite is poor. She does have supplements as well. (3) Palliative care encounter: Plan: Met with Tabby's and two sons, Pierce and Robel, along with her granddaughter, Lyly, via speaker phone. Reviewed Tabby's care and discussed goals moving forward. Family realizes that rehab potential is poor for Tabby and has been considering hospice care on discharge. We discussed return to [facility] with hospice vs SNF with rehab or hospice. Family is concerned that Mr. Zambrano would not be able to manage her care at [place] even with hospice and staff support and are considering SNF placement. We discussed medicare coverage of both, merits and disadvantages to both. They would like to talk as a family further to decide. Discussed with Dr. Blanco and case management. Admission and Anticipated Discharge Date Admission Date: May 26, 2021 Subjective Sleeping but easily arousable. Still complains of pain in right chest. Chest xray did not indicate any rib fractures. She did take both tylenol and oxycodone yesterday. She has been taking her medications for the last two days. She did eat a small amount of breakfast. Was not able to do PT yesterday due to pain. Review of Systems Review of Systems: [place] Symptom Assessment Scale Pain 2/3 Dyspnea 0/3 Anxiety 0/3 Fatigue 2/3 Drowsiness 1/3 Palliative Performance Score 40% Physical Exam Constitutional: + frail appearing Respiratory: normal respiratory effort; no labored breathing Cardiovascular: Rate/Rhythm: regular rate and regular rhythm Gastrointestinal (Abdomen): nontender Neurologic: Speech / Cognition: + abnormal cognition Results & Data ([facility]) Vital Signs (Past 12 Hours) Vital Signs Temp Pulse Pulse Pulse Resp BP Pulse Ox 06/04/21 07:32 84 06/04/21 07:10 98.4 F 88 16 161/68 H 100 06/04/21 03:00 98.2 F 95 H 16 147/75 H 98 06/03/21 23:00 98.2 F 102 H 105 H 16 138/73 97 PG Care Time/CCT Total # of Minutes Spent Total Time Spent: 45 Total Time Spent with Patient: Total time spent is greater than 50% in coordination of care (as documented) at patient's floor/unit and/or counseling patient: goals of care, symptom management, family education and support, coordination of care Coding Level of Care Code 97434 Subseq Hosp Care Lvl 3 Diagnoses Chest wall pain R07.89 Failure to thrive Palliative care encounter Z51.5
--- NOTE | 2021-06-04 13:24 | Hospitalist Progress Note ---
Date of Service June 04, 2021 Assessment & Plan (1) Closed left hip fracture: Plan: POD #8 s/p ORIF by Dr Zavala (cemented bipolar hip repair). DVT proph - asa 81mg BID. She is continuing to refuse her asa however at times. Will stop the asa if family decides to implement hospice. vit D insufficiency - will stop vitamin D and calcium as headed towards hospice and refusing a lot of meds Cont scheduled 1gm TID when able. Oxycodone 2.5mg q6h and IV morphine prn. PT, OT - would cancel if family elects for hospice. Rehab potential is very, very poor if at all. Likely to need SNF level of care after d/c unless family opts for hospice; social work confirmed with [facility] today they would take her back on hospice, but family thinks this would be too stressful on her as he would feel obligated to care for her frequently. Prognosis is very poor in light of advanced dementia, cardiac issues, etc along with poor appetite/failure to thrive and now refusing many of her daily meds. (2) Failure to thrive: Plan: Lengthy discussion held with pt's son-in-law and at bedside this weekend as per previous hospitalist. They report that they moved from the [facility] to [place] in summer, 2020, to live at [facility]. She did poorly during the transition with very little PO intake in the fall 2020 and early winter 2021. Then, in the last 6-8 weeks, her appetite had picked up some - the best it had been in a long time. The eating habits we are seeing here are similar to what the family witnessed last summer/fall. Her Alzheimer's Dementia is the biggest factor with her failure to thrive. I cannot exclude an underlying depression which would certainly worsen the situation. Extensive palliative care discussion held on 06/02/21 with the pt's , 2 sons (1 was on the phone), and his granddaughter who is currently overseas in [place]. See below. Dr Vega saw patient in consultation. Now had meeting with the family to address goals of care and determine if hospice will be pursued-leaning towards [facility] with hospice -dc MVI, calcium plus D, VIt D, Vit B12, atorvastatin in an effort to reduce pill burden (3) Cardiac arrest: Plan: Hospital day #1 -- Torsades de pointes in the setting of prolonged QTc. Occured about 8 hours after admission. Patient with significant hypomagnesemia and hypokalemia at the time of this event. Received CPR, 1 shock, 1 mg epi, amiodarone 300mg x 1, sodium bicarb, 2 grams IV mag. This led to ROSC. Transferred to ICU on 05/26 after arrest. ECHO with severe LVH, EF low normal at 50%. Beta melissa stopped while in ICU due to episodes of bradycardia. [facility] Cardiology consulted - torsades felt 2nd to low K, low mag - in the setting of prolonged QTc. Meds associated with prolonged QTc were stopped including aricept & namenda. Anti-emetics also stopped. Has baseline LBBB. Cardiology not recommending any additional invasive testing due to comorbidities, dementia, hip Fx, etc. Has remained in NSR since the ICU. Unfortunately she is refusing most of her PO & IV meds and thus I anticipate her K/mag will fall putting her at risk of torsades once again. Suspect multiple rib fractures and/or contusion from CPR - cont pain management for this if she will allow meds to be given. She could even have a sternal Fx. (4) Constipation: Plan: moving bowels per staff. dc senna 17.2mg daily and cont with senna/docusate once daily (5) Chest wall pain: Plan: highly suspicious for, at minimum, chest wall contusions from CPR/compressions. rib fractures/sternal fracture with high likelihood as well. could consider CT chest but this will not slubber frame changer. If family elects for hospice would defer any advanced imaging. Tylenol 1gm TID. Voltaren gel QID. Oxycodone prn. If she refuses her oral pain meds will make morphine available to her IV. (6) Torsades de pointes: Plan: see #2 above. (7) Bradycardia: Plan: Occurred midnight 05/26/21. ?transient AV block vs increased vagal tone from nausea (had nausea at time of her bradycardia). Atenolol stopped. No further episodes. Cardiology didn't recommend any further w/u. (8) Hypomagnesemia: Plan: Cont mag oxide 400mg BID if she will take it (9) Hypokalemia: Plan: Replaced Resolved Cont K supplement bid if able (10) Dementia: Plan: Alzheimer's disease - severe. Holding Aricept and Memantine due to QT prolongation and torsades Would not resume - limited benefit of these meds in the setting of advanced dementia (and potential transition to hospice) Consider treatment for depression, however, with low-dose SSRI (zoloft, remeron, etc) (11) LBBB (left bundle branch block): Plan: Chronic, present several months prior to admission. Echocardiogram with severe LVH and low-nl EF of 50%. Due to advanced age, dementia, and guarded prognosis no ischemic w/u or invasive testing at this time. (12) Hypertension: Plan: Would stop lisinopril if she transitions to hospice (13) Hyperlipidemia: Plan: will stop statin to reduce pill burden and benefit minimal at this point (14) GERD (gastroesophageal reflux disease): Plan: Continue Protonix BID as able (15) DVT prophylaxis: Plan: Continue asa 81mg bid as able (16) Left ankle pain: Plan: ankle x-rays obtained -- no fracture. no CPPD crystals. gout? ankle sprain from recent fall? other? asked staff to place 2gm voltaren gel on ankle. consider a low-dose prednisone course (10mg/day for a few days). Plan: As per Previous hospitalist: updated by phone 05/29/21 grand-daughter Lisa (is a medical record librarian by training) updated on 05/30 left message for on 05/31/21 on voicemail updated & son-in-law on 06/01/21 at bedside 06/02/21 - lengthy palliative discussion with , 2 sons, and granddaughter code status confirmed to be DNR/DNI discussed options for care -- continuing routine care in the hospital for a few more days to see if she has any significant improvement vs transitioning her to SNF with hopes that she can participate in rehab and improve (with ongoing palliative care to address pain, etc) vs enrolling her in hospice before hospital discharge. I explained that if they decided to have her placed at a SNF with intentions to pursue PT/OT that I don't think it would go well and that we would likely be discussing hospice again in the very near future. Explained further that her lack of appetite, refusing meds, and not tolerating even turning in bed portends a very poor prognosis. I mentioned that her best option would be hospice at this time. 06/03/21 - left message for Lyly Zambrano, grand-daughter ([phone]) - she is currently overseas in [place] attending phD program 06/03/21 - left message for Pierce Zambrano, son, on his voicemail Now s/p family meeting with Palliative on 06/04-most likely going to pursue hospice at [facility] Case man involved Dispo-downgrade to med/surg Admission and Anticipated Discharge Date Admission Date: May 26, 2021 Subjective Pleasantly confused. Doesn't know why she is here. Has pain in chest she reports. Doesn't remember if she is eating or not. Discussed her care with Palliative Med who just met with family-leaning towards going to [facility] with Hospice but might pursue some rehab first. Tele with NSR, IVCD, rates 70-90s Review of Systems Review of Systems: All systems reviewed & are unremarkable except as noted in HPI & below Physical Exam Constitutional: WD/WN, vitals as above Eyes: + anicteric sclerae Neck: trachea midline, no thyromegaly Respiratory: normal respiratory effort, lungs clear to auscultation Cardiovascular: RRR, no murmur, no edema Chest (Breasts): Chest: + abnormal inspection of chest (and +TTP over sternum) Breast: + abnormal inspection of breast (right mastectomy) Gastrointestinal (Abdomen): normal bowel sounds, soft, nontender, no hepatosplenomegaly Musculoskeletal: Extremities: + extremities abnormal to inspection (left hip with dressing intact), no cyanosis and no clubbing Skin: no rashes, warm and dry Neurologic: awake and + confused; no focal motor deficits (moves all extremities) Speech / Cognition: + abnormal cognition; no expressive aphasia Psychiatric: Orientation: alert, oriented to person, oriented to place and cooperative Lymphatic: no lymphedema Results & Data Results & Data ([facility]) Vital Signs (Past 12 Hours) Vital Signs Temp Pulse Pulse Pulse Resp BP Pulse Ox 06/04/21 10:50 36.8 C 85 17 138/66 96 06/04/21 07:32 84 06/04/21 07:10 36.9 C 88 16 161/68 H 100 06/04/21 03:00 36.8 C 95 H 16 147/75 H 98 PG Care Time/CCT Total # of Minutes Spent Total Time Spent with Patient: Total time spent is greater than 50% in coordination of care (as documented) at patient's floor/unit and/or counseling patient: Coding Level of Care Code 97359 Subseq Hosp Care Lvl 2 Diagnoses Closed left hip fracture S72.002A Failure to thrive Cardiac arrest I46.9 Constipation K59.00 Chest wall pain R07.89 Torsades de pointes I47.2 Bradycardia R00.1 Hypomagnesemia E83.42 Hypokalemia E87.6 Dementia F03.90 LBBB (left bundle branch block) I44.7 Hypertension I10 Hyperlipidemia E78.5 GERD (gastroesophageal reflux disease) K21.9 DVT prophylaxis Z29.9 Left ankle pain M25.572
[2021-06-04] MEDS: oxyCODONE HCL IR 5 MG TAB (IMMEDIATE RELEASE) PO PRN (15:26)
[2021-06-04] MEDS: LORazepam 1 MG TAB PO SCH (21:34)
[2021-06-05] MEDS: PANTOprazole 40 MG TAB PO SCH ×2 (09:48→21:52)
[2021-06-05] MEDS: DOCUSATE SODIUM/SENNA 50/8.6MG TAB PO SCH (09:48)
[2021-06-05] MEDS: lisinopril 5 MG TAB PO SCH (09:49)
[2021-06-05] MEDS: ACETAMINOPHEN 500 MG TAB PO SCH ×3 (09:49→21:52)
[2021-06-05] MEDS: ASPIRIN 81 MG ECTAB PO SCH ×2 (09:49→21:52)
[2021-06-05] MEDS: MAGNESIUM OXIDE 400 MG TAB PO SCH ×2 (09:50→21:52)
[2021-06-05] MEDS: DICLOFENAC SOD 1% GEL 100 GM TUBE EXT SCH ×4 (09:50→21:52)
[2021-06-05] MEDS: POTASSIUM CHLORIDE CRTAB 20 MEQ TABCR PO SCH ×2 (09:59→22:12)
--- NOTE | 2021-06-05 10:43 | Progress Notes ---
DATE OF SERVICE: 06/05/2021. SUBJECTIVE: An 85-year-old white female, now 9 days out from a left cemented bipolar hip arthroplast y for fracture. She looks comfortable. She does have significant dementia. Denies any real signifi cant pain. OBJECTIVE: VITAL SIGNS: Temperature is 37.2. Vital signs are stable. GENERAL: Shows a pleasant, elderly female. She is lying in bed, looks comfortable. EXTREMITIES: Examination of the left hip reveals the incision to be clean, dry and intact. The much less drainage. Mild swelling. Hip is located. She is neurologically intact. ASSESSMENT: An 85-year-old white female, now 9 days out from a left cemented bipolar hip arthroplast y for fracture, doing reasonably well orthopedically. She has got multiple medical issues including advanced dementia, which will likely hinder her recovery. In any case, she is doing reasonably well. Pain seems to be controlled. Hip is located and she is neurologically intact. PLAN: Continue DVT prophylaxis including, TEDs, SCDs, and aspirin. She can weight bear as tolerated . Needs to obey hip precautions. I need to see her back two to three weeks out from surgery date. She is okay for discharge any time medically stable. Any orthopedic questions can be directed to me at [phone]. I am going to sign off for now. Once again call for any questions and I need to se e her back two to three weeks out from surgery date. Job ID: [id number]
--- NOTE | 2021-06-05 22:06 | Hospitalist Progress Note ---
Date of Service June 05, 2021 Assessment & Plan (1) Closed left hip fracture: Plan: POD #9 s/p ORIF by Dr Zavala (cemented bipolar hip repair). DVT proph - asa 81mg BID. She is continuing to refuse her asa however at times. Will stop the asa if family decides to implement hospice. vit D insufficiency - will stop vitamin D and calcium as headed towards hospice and refusing a lot of meds Cont scheduled 1gm TID when able. Oxycodone 2.5mg q6h and IV morphine prn. PT, OT - would cancel if family elects for hospice. Rehab potential is very, very poor if at all. Plan is to go back to [facility] on hospice in the next 1 to 2 days Prognosis is very poor in light of advanced dementia, cardiac issues, etc along with poor appetite/failure to thrive and now refusing many of her daily meds. (2) Failure to thrive: Plan: Lengthy discussion held with pt's son-in-law and at bedside this weekend as per previous hospitalist. They report that they moved from the [facility] to [place] in summer, 2020, to live at [facility]. She did poorly during the transition with very little PO intake in the fall 2020 and early winter 2021. Then, in the last 6-8 weeks, her appetite had picked up some - the best it had been in a long time. The eating habits we are seeing here are similar to what the family witnessed last summer/fall. Her Alzheimer's Dementia is the biggest factor with her failure to thrive. I cannot exclude an underlying depression which would certainly worsen the situation. Extensive palliative care discussion held on 06/02/21 with the pt's , 2 sons (1 was on the phone), and his granddaughter who is currently overseas in [place]. See below. Dr Vega saw patient in consultation. Now had meeting with the family to address goals of care plan is for return to personal [facility] with hospice -Discontinued MVI, calcium plus D, VIt D, Vit B12, atorvastatin in an effort to reduce pill burden (3) Cardiac arrest: Plan: Hospital day #1 -- Torsades de pointes in the setting of prolonged QTc. Occured about 8 hours after admission. Patient with significant hypomagnesemia and hypokalemia at the time of this event. Received CPR, 1 shock, 1 mg epi, amiodarone 300mg x 1, sodium bicarb, 2 grams IV mag. This led to ROSC. Transferred to ICU on 05/26 after arrest. ECHO with severe LVH, EF low normal at 50%. Beta melissa stopped while in ICU due to episodes of bradycardia. [facility] Cardiology consulted - torsades felt 2nd to low K, low mag - in the setting of prolonged QTc. Meds associated with prolonged QTc were stopped including aricept & namenda. Anti-emetics also stopped. Has baseline LBBB. Cardiology not recommending any additional invasive testing due to comorbidities, dementia, hip Fx, etc. Has remained in NSR since the ICU. Unfortunately she is refusing most of her PO & IV meds and thus I anticipate her K/mag will fall putting her at risk of torsades once again. Suspect multiple rib fractures and/or contusion from CPR - cont pain management for this if she will allow meds to be given. She could even have a sternal Fx. (4) Constipation: Plan: moving bowels per staff. dc senna 17.2mg daily and cont with senna/docusate once daily (5) Chest wall pain: Plan: highly suspicious for, at minimum, chest wall contusions from CPR/compressions. rib fractures/sternal fracture with high likelihood as well. could consider CT chest but this will not climate change analyst. If family elects for hospice would defer any advanced imaging. Tylenol 1gm TID. Voltaren gel QID. Oxycodone prn. If she refuses her oral pain meds will make morphine available to her IV. (6) Torsades de pointes: Plan: see #2 above. (7) Bradycardia: Plan: Occurred midnight 05/26/21. ?transient AV block vs increased vagal tone from nausea (had nausea at time of her bradycardia). Atenolol stopped. No further episodes. Cardiology didn't recommend any further w/u. (8) Hypomagnesemia: Plan: Cont mag oxide 400mg BID if she will take it (9) Hypokalemia: Plan: Replaced Resolved Cont K supplement bid if able (10) Dementia: Plan: Alzheimer's disease - severe. Holding Aricept and Memantine due to QT prolongation and torsades Would not resume - limited benefit of these meds in the setting of advanced dementia (and potential transition to hospice) Consider treatment for depression, however, with low-dose SSRI (zoloft, remeron, etc) (11) LBBB (left bundle branch block): Plan: Chronic, present several months prior to admission. Echocardiogram with severe LVH and low-nl EF of 50%. Due to advanced age, dementia, and guarded prognosis no ischemic w/u or invasive testing at this time. (12) Hypertension: Plan: Would stop lisinopril if she transitions to hospice (13) Hyperlipidemia: Plan: will stop statin to reduce pill burden and benefit minimal at this point (14) GERD (gastroesophageal reflux disease): Plan: Continue Protonix BID as able (15) DVT prophylaxis: Plan: Continue asa 81mg bid as able (16) Left ankle pain: Plan: ankle x-rays obtained -- no fracture. no CPPD crystals. asked staff to place 2gm voltaren gel on ankle. Plan: As per Previous hospitalist: updated by phone 05/29/21 grand-daughter Lisa (is a medical sales representative by training) updated on 05/30 left message for on 05/31/21 on voicemail updated & son-in-law on 06/01/21 at bedside 06/02/21 - lengthy palliative discussion with , 2 sons, and granddaughter code status confirmed to be DNR/DNI discussed options for care -- continuing routine care in the hospital for a few more days to see if she has any significant improvement vs transitioning her to SNF with hopes that she can participate in rehab and improve (with ongoing palliative care to address pain, etc) vs enrolling her in hospice before hospital discharge. I explained that if they decided to have her placed at a SNF with intentions to pursue PT/OT that I don't think it would go well and that we would likely be discussing hospice again in the very near future. Explained further that her lack of appetite, refusing meds, and not tolerating even turning in bed portends a very poor prognosis. I mentioned that her best option would be hospice at this time. 06/03/21 - left message for Lyly Zambrano, grand-daughter ([phone]) - she is currently overseas in [place] attending phD program 06/03/21 - left message for Pierce Zambrano, son, on his voicemail Now s/p family meeting with Palliative on 06/04-most likely going to pursue hospice at [facility] I discussed her care with her son Pierce and on 06/04 Case man involved Dispo-medically stable for discharge, continued stay on med/surg while awaiting placement the next 1 to 2 days Admission and Anticipated Discharge Date Admission Date: May 26, 2021 Subjective Patient remains pleasantly confused. The nurse did get her to take her pills, but she only had one bite of pudding for breakfast. She thinks that maybe the pain in her chest is better but she is not sure. She has no pain in the hip. Awaiting placement Review of Systems Review of Systems: All systems reviewed & are unremarkable except as noted in HPI & below Physical Exam Constitutional: WD/WN, vitals as above Eyes: + anicteric sclerae Neck: trachea midline, no thyromegaly Respiratory: normal respiratory effort, lungs clear to auscultation Cardiovascular: RRR, no murmur, no edema Chest (Breasts): Chest: + abnormal inspection of chest (and +TTP over sternum) Breast: + abnormal inspection of breast (right mastectomy) Gastrointestinal (Abdomen): normal bowel sounds, soft, nontender, no hepatosplenomegaly Musculoskeletal: Extremities: + extremities abnormal to inspection (left hip with dressing intact), no cyanosis and no clubbing Skin: no rashes, warm and dry Neurologic: awake and + confused; no focal motor deficits (moves all extremities) Speech / Cognition: + abnormal cognition; no expressive aphasia Psychiatric: Orientation: alert, oriented to person, oriented to place and cooperative Lymphatic: no lymphedema Results & Data Results & Data ([facility]) Vital Signs (Past 12 Hours) Vital Signs Temp Pulse Resp BP Pulse Ox 06/05/21 14:25 37.5 C 95 H 17 121/70 93 PG Care Time/CCT Total # of Minutes Spent Total Time Spent with Patient: Total time spent is greater than 50% in coordination of care (as documented) at patient's floor/unit and/or counseling patient: Coding Level of Care Code 46342 Subseq Hosp Care Lvl 1 Diagnoses Closed left hip fracture S72.002A Failure to thrive Cardiac arrest I46.9 Constipation K59.00 Chest wall pain R07.89 Torsades de pointes I47.2 Bradycardia R00.1 Hypomagnesemia E83.42 Hypokalemia E87.6 Dementia F03.90 LBBB (left bundle branch block) I44.7 Hypertension I10 Hyperlipidemia E78.5 GERD (gastroesophageal reflux disease) K21.9 DVT prophylaxis Z29.9 Left ankle pain M25.572
[2021-06-05] MEDS: LORazepam 1 MG TAB PO SCH (22:12)
[2021-06-06] MEDS: ACETAMINOPHEN 500 MG TAB PO SCH ×3 (08:51→21:40)
[2021-06-06] MEDS: MAGNESIUM OXIDE 400 MG TAB PO SCH ×2 (08:52→21:40)
[2021-06-06] MEDS: ASPIRIN 81 MG ECTAB PO SCH ×2 (08:52→21:40)
[2021-06-06] MEDS: lisinopril 5 MG TAB PO SCH (08:53)
[2021-06-06] MEDS: PANTOprazole 40 MG TAB PO SCH ×3 (08:53→21:40)
[2021-06-06] MEDS: DOCUSATE SODIUM/SENNA 50/8.6MG TAB PO SCH (08:55)
[2021-06-06] MEDS: DICLOFENAC SOD 1% GEL 100 GM TUBE EXT SCH ×4 (08:55→21:41)
[2021-06-06] MEDS: POTASSIUM CHLORIDE CRTAB 20 MEQ TABCR PO SCH ×3 (08:55→21:48)
--- NOTE | 2021-06-06 13:19 | Hospitalist Progress Note ---
Date of Service June 06, 2021 Assessment & Plan (1) Closed left hip fracture: Plan: POD #10 s/p ORIF by Dr Zavala (cemented bipolar hip repair). DVT proph - asa 81mg BID. She is continuing to refuse her asa however at times. Will stop the asa if family decides to implement hospice. vit D insufficiency - will stop vitamin D and calcium as headed towards hospice and refusing a lot of meds Cont scheduled 1gm TID when able. Oxycodone 2.5mg q6h and IV morphine prn. PT, OT - would cancel if family elects for hospice. Rehab potential is very, very poor if at all. Plan is to go back to [facility] personal[facility]long[facility] on hospice tomorrow Prognosis is very poor in light of advanced dementia, cardiac issues, etc along with poor appetite/failure to thrive and now refusing many of her daily meds. (2) Failure to thrive: Plan: Lengthy discussion held with pt's son-in-law and at bedside this weekend as per previous hospitalist. They report that they moved from the [facility] to [place] in summer, 2020, to live at [facility]. She did poorly during the transition with very little PO intake in the fall 2020 and early winter 2021. Then, in the last 6-8 weeks, her appetite had picked up some - the best it had been in a long time. The eating habits we are seeing here are similar to what the family witnessed last summer/fall. Her Alzheimer's Dementia is the biggest factor with her failure to thrive. I cannot exclude an underlying depression which would certainly worsen the situation. Extensive palliative care discussion held on 06/02/21 with the pt's , 2 sons (1 was on the phone), and his granddaughter who is currently overseas in [place]. See below. Dr Vega saw patient in consultation. Now had meeting with the family to address goals of care plan is for return to personal long-term with hospice -Discontinued MVI, calcium plus D, VIt D, Vit B12, atorvastatin in an effort to reduce pill burden (3) Cardiac arrest: Plan: Hospital day #1 -- Torsades de pointes in the setting of prolonged QTc. Occured about 8 hours after admission. Patient with significant hypomagnesemia and hypokalemia at the time of this event. Received CPR, 1 shock, 1 mg epi, amiodarone 300mg x 1, sodium bicarb, 2 grams IV mag. This led to ROSC. Transferred to ICU on 05/26 after arrest. ECHO with severe LVH, EF low normal at 50%. Beta melissa stopped while in ICU due to episodes of bradycardia. [facility] Cardiology consulted - torsades felt 2nd to low K, low mag - in the setting of prolonged QTc. Meds associated with prolonged QTc were stopped including aricept & namenda. Anti-emetics also stopped. Has baseline LBBB. Cardiology not recommending any additional invasive testing due to comorbidities, dementia, hip Fx, etc. Has remained in NSR since the ICU. Unfortunately she is refusing most of her PO & IV meds and thus I anticipate her K/mag will fall putting her at risk of torsades once again. Suspect multiple rib fractures and/or contusion from CPR - cont pain management for this if she will allow meds to be given. She could even have a sternal Fx. (4) Constipation: Plan: moving bowels per staff. dc senna 17.2mg daily and cont with senna/docusate once daily (5) Chest wall pain: Plan: highly suspicious for, at minimum, chest wall contusions from CPR/compressions. rib fractures/sternal fracture with high likelihood as well. could consider CT chest but this will not liner roll changer. If family elects for hospice would defer any advanced imaging. Tylenol 1gm TID. Voltaren gel QID. Oxycodone prn. (6) Torsades de pointes: Plan: see #2 above. (7) Bradycardia: Plan: Occurred midnight 05/26/21. ?transient AV block vs increased vagal tone from nausea (had nausea at time of her bradycardia). Atenolol stopped. No further episodes. Cardiology didn't recommend any further w/u. (8) Hypomagnesemia: Plan: Cont mag oxide 400mg BID if she will take it (9) Hypokalemia: Plan: Replaced Resolved Cont K supplement bid if able (10) Dementia: Plan: Alzheimer's disease - severe. Holding Aricept and Memantine due to QT prolongation and torsades Would not resume - limited benefit of these meds in the setting of advanced dementia (and potential transition to hospice) Consider treatment for depression, however, with low-dose SSRI (zoloft, remeron, etc) (11) LBBB (left bundle branch block): Plan: Chronic, present several months prior to admission. Echocardiogram with severe LVH and low-nl EF of 50%. Due to advanced age, dementia, and guarded prognosis no ischemic w/u or invasive testing at this time. (12) Hypertension: Plan: Would stop lisinopril if she transitions to hospice (13) Hyperlipidemia: Plan: will stop statin to reduce pill burden and benefit minimal at this point (14) GERD (gastroesophageal reflux disease): Plan: Continue Protonix BID as able (15) DVT prophylaxis: Plan: Continue asa 81mg bid as able (16) Left ankle pain: Plan: ankle x-rays obtained -- no fracture. no CPPD crystals. asked staff to place 2gm voltaren gel on ankle. Plan: As per Previous hospitalist: updated by phone 05/29/21 grand-daughter Lisa (is a manager of medical by training) updated on 05/30 left message for on 05/31/21 on voicemail updated & son-in-law on 06/01/21 at bedside 06/02/21 - lengthy palliative discussion with , 2 sons, and granddaughter code status confirmed to be DNR/DNI discussed options for care -- continuing routine care in the hospital for a few more days to see if she has any significant improvement vs transitioning her to SNF with hopes that she can participate in rehab and improve (with ongoing palliative care to address pain, etc) vs enrolling her in hospice before hospital discharge. I explained that if they decided to have her placed at a SNF with intentions to pursue PT/OT that I don't think it would go well and that we would likely be discussing hospice again in the very near future. Explained further that her lack of appetite, refusing meds, and not tolerating even turning in bed portends a very poor prognosis. I mentioned that her best option would be hospice at this time. 06/03/21 - left message for Lyly Zambrano, grand-daughter ([phone]) - she is currently overseas in [place] attending phD program 06/03/21 - left message for Pierce Zambrano, son, on his voicemail Now s/p family meeting with Palliative on 06/04-most likely going to pursue hospice at [facility] I discussed her care with her son Pierce and on 06/04 Case man involved Dispo-medically stable for discharge, continued stay on med/surg while awaiting placement likely tomorrow Admission and Anticipated Discharge Date Admission Date: May 26, 2021 Subjective Pt pleasantly confused. No concerns. Says she doesn't want to eat and has no appetite. States "I'll probably eat when I get home." Review of Systems Review of Systems: All systems reviewed & are unremarkable except as noted in HPI & below Physical Exam Constitutional: WD/WN, vitals as above Eyes: + anicteric sclerae Neck: trachea midline, no thyromegaly Respiratory: normal respiratory effort, lungs clear to auscultation Cardiovascular: RRR, no murmur, no edema Gastrointestinal (Abdomen): normal bowel sounds, soft, nontender, no hepatosplenomegaly Musculoskeletal: Extremities: + extremities abnormal to inspection (left hip with dressing intact), no cyanosis and no clubbing Skin: no rashes, warm and dry Neurologic: awake and + confused; no focal motor deficits (moves all extremities) Speech / Cognition: + abnormal cognition; no expressive aphasia Psychiatric: Orientation: alert, oriented to person, oriented to place and cooperative Lymphatic: no lymphedema Results & Data Results & Data ([facility]) Vital Signs (Past 12 Hours) Vital Signs Temp Pulse Resp BP Pulse Ox 06/06/21 08:27 36.5 C 98 H 18 167/78 H 96 PG Care Time/CCT Total # of Minutes Spent Total Time Spent with Patient: Total time spent is greater than 50% in coordination of care (as documented) at patient's floor/unit and/or counseling patient: Coding Level of Care Code 43760 Subseq Hosp Care Lvl 1 Diagnoses Closed left hip fracture S72.002A Failure to thrive Cardiac arrest I46.9 Constipation K59.00 Chest wall pain R07.89 Torsades de pointes I47.2 Bradycardia R00.1 Hypomagnesemia E83.42 Hypokalemia E87.6 Dementia F03.90 LBBB (left bundle branch block) I44.7 Hypertension I10 Hyperlipidemia E78.5 GERD (gastroesophageal reflux disease) K21.9 DVT prophylaxis Z29.9 Left ankle pain M25.573
[2021-06-06] MEDS: LORazepam 1 MG TAB PO SCH (21:40)
[2021-06-07] MEDS: ASPIRIN 81 MG ECTAB PO SCH (08:20)
[2021-06-07] MEDS: PANTOprazole 40 MG TAB PO SCH (08:21)
[2021-06-07] MEDS: ACETAMINOPHEN 500 MG TAB PO SCH ×2 (08:21→13:55)
[2021-06-07] MEDS: DICLOFENAC SOD 1% GEL 100 GM TUBE EXT SCH ×2 (08:22→13:55)
[2021-06-07] MEDS: lisinopril 5 MG TAB PO SCH (08:22)
[2021-06-07] MEDS: MAGNESIUM OXIDE 400 MG TAB PO SCH (08:22)
[2021-06-07] MEDS: DOCUSATE SODIUM/SENNA 50/8.6MG TAB PO SCH (08:23)
[2021-06-07] MEDS: POTASSIUM CHLORIDE CRTAB 20 MEQ TABCR PO SCH (08:23)
--- NOTE | 2021-06-07 08:50 | Progress Notes ---
DATE OF SERVICE: 06/07/2021. SUBJECTIVE: An 85-year-old white female, now 11 days out from a left cemented bipolar hip arthroplas ty for fracture. Orthopedically, she seems to be doing fine. Denies any significant pain this walker james. OBJECTIVE: VITAL SIGNS: Temperature 37.0. Vital signs are stable. EXTREMITIES: Examination of the left hip reveals the dressing to be in place. There is maybe just a trace bit of drainage. Her thigh is soft and supple. Hip is located. She is neurologically intact . ASSESSMENT: An 85-year-old white female, now 11 days out from a left cemented bipolar hip arthroplas ty for fracture. This was preceded by a coding episode and chest compressions. Orthopedically and me dically she appears pretty stable at this point. PLAN: From the orthopedic standpoint, she can weight bear as tolerated. Encouraged to obey hip prec autions as much as possible within her limits of dementia. Routine wound care to the left hip. DVT prophylaxis includes thigh-high TEDs, SCDs, and aspirin. If she will not take the aspirin then that i s fine, I would not do any more aggressive intervention. We will plan on removing the lynn somewh ere between 2 and 3 weeks. Any orthopedic questions can be directed to me at [phone]. Job ID: [id number]
--- NOTE | 2021-06-07 12:16 | Discharge Summary ---
Date of Service June 07, 2021 Admission HPI Per Admitting Provider Tabby Zambrano is an 85yo female with history of HTN, HLP, Dementia presenting with left hip fracture. Patient does not fully recall the events leading to the fall. She denies LOC or head trauma. States that she is having excruciating pain in her left hip, inability to move. Ambulatory prior to fall ER Course: Fentanyl, Dilaudid, Morphine, Zofran Principal Diagnosis Left hip fracture, cardiac arrest, torsades de points Discharge Exam Constitutional WD/WN, vitals as above Eyes + anicteric sclerae ENMT external ear and nose normal, oropharynx normal Neck trachea midline, no thyromegaly Respiratory normal respiratory effort, lungs clear to auscultation Cardiovascular RRR, no murmur, no edema Chest (Breasts) Chest: + abnormal inspection of chest (and +TTP over sternum) Breast: + abnormal inspection of breast (right mastectomy) Gastrointestinal (Abdomen) normal bowel sounds, soft, nontender, no hepatosplenomegaly Musculoskeletal Extremities: + extremities abnormal to inspection (left hip with dressing intact), no cyanosis and no clubbing Skin no rashes, warm and dry Neurologic awake and + confused; no focal motor deficits (moves all extremities) Speech / Cognition: + abnormal cognition; no expressive aphasia Psychiatric Orientation: alert, oriented to person, oriented to place and cooperative Lymphatic no lymphedema Discharge Data Allergies Allergy/AdvReac Type Severity Reaction Status Date / Time procaine [From Novocain] Allergy Verified 05/09/21 12:36 Consultations 05/26/21 05:06 ED Decision to Admit Stat 05/26/21 07:05 Consult Orthopedic Surgery Routine 05/26/21 11:46 Consult Copy Holder Stat 05/26/21 12:14 Consult Cardiology Routine 06/02/21 18:07 Consult Palliative Care Routine Procedures Performed Operation Date: 05/26/21 11:00 <No data on this case meets the specified criteria> Operation Date: 05/27/21 11:30 Actual Procedures p Left Cemented Bipolar Hip(Left) - Kelvin Zavala MD Ordered Studies 05/26/21 12:04 US venous doppler LE BI Stat Hospital Course (1) Closed left hip fracture: POD #11 s/p ORIF by Dr Zavala (cemented bipolar hip repair). DVT proph - asa 81mg BID. She is continuing to refuse her asa however at times. Could discontinue aspirin once on hospice if refuses vit D insufficiency - will stop vitamin D and calcium as headed towards hospice and refusing a lot of meds Cont scheduled 1gm TID when able. Oxycodone 2.5mg q6h as needed moderate to severe pain Plan is to go back to [facility]-intermediate on hospice today Prognosis is very poor in light of advanced dementia, cardiac issues, etc along with poor appetite/failure to thrive and now refusing many of her daily meds. (2) Failure to thrive: Lengthy discussion held with pt's son-in-law and at bedside this weekend as per previous hospitalist. They report that they moved from the [facility] to [place] in summer, 2020, to live at [facility]. She did poorly during the transition with very little PO intake in the fall 2020 and early winter 2021. Then, in the last 6-8 weeks, her appetite had picked up some - the best it had been in a long time. The eating habits we are seeing here are similar to what the family witnessed last summer/fall. Her Alzheimer's Dementia is the biggest factor with her failure to thrive. I cannot exclude an underlying depression which would certainly worsen the situation. Extensive palliative care discussion held on 06/02/21 with the pt's , 2 sons (1 was on the phone), and his granddaughter who is currently overseas in [place]. See below. Dr Vega saw patient in consultation. Now had meeting with the family to address goals of care plan is for return to personal intermediate with hospice -Discontinued MVI, calcium plus D, VIt D, Vit B12, atorvastatin in an effort to reduce pill burden (3) Cardiac arrest: Hospital day #1 -- Torsades de pointes in the setting of prolonged QTc, hypomagnesemia, hypokalemia, and QT prolonging medications Occurred about 8 hours after admission. Patient with significant hypomagnesemia and mild hypokalemia prior to theevent. Received CPR, 1 shock, 1 mg epi, amiodarone 300mg x 1, sodium bicarb, 2 grams IV mag. This led to ROSC. Transferred to ICU on 05/26 after arrest. ECHO with severe LVH, EF low normal at 50%. Beta melissa stopped while in ICU due to episodes of bradycardia. [facility] Cardiology consulted - torsades felt 2nd to low K, low mag - in the setting of prolonged QTc. Meds associated with prolonged QTc were stopped including aricept & namenda. Anti-emetics also stopped. Has baseline LBBB but with no previous cardiac issues known Cardiology not recommending any additional invasive testing due to comorbidities, dementia, hip Fx, etc. Has remained in NSR since the ICU. Unfortunately she is refusing most of her PO & IV meds and thus I anticipate her K/mag will fall putting her at risk of torsades once again. Suspect multiple rib fractures and/or contusion from CPR - cont pain management for this if she will allow meds to be given. She could even have a sternal Fx. (4) Constipation: moving bowels per staff. cont with senna/docusate once daily (5) Chest wall pain: highly suspicious for, at minimum, chest wall contusions from CPR/compressions. rib fractures/sternal fracture with high likelihood as well. 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 If family elects for hospice would defer any advanced imaging. Tylenol 1gm TID. Voltaren gel QID. Oxycodone prn. (6) Torsades de pointes: see #2 above. (7) Bradycardia: Occurred midnight 05/26/21. ?transient AV block vs increased vagal tone from nausea (had nausea at time of her bradycardia). Atenolol stopped. No further episodes. Cardiology didn't recommend any further w/u. (8) Hypomagnesemia: Cont mag oxide 400mg BID if she will take it (9) Hypokalemia: Replaced Resolved Cont K supplement bid if able (10) Dementia: Alzheimer's disease - severe. Holding Aricept and Memantine due to QT prolongation and torsades Would not resume - limited benefit of these meds in the setting of advanced dementia (and potential transition to hospice) (11) LBBB (left bundle branch block): Chronic, present several months prior to admission. Echocardiogram with severe LVH and low-nl EF of 50%. Due to advanced age, dementia, and guarded prognosis no ischemic w/u or invasive testing at this time. (12) Hypertension: Continue lisinopril 5 mg daily (13) Hyperlipidemia: will stop statin to reduce pill burden and benefit minimal at this point (14) GERD (gastroesophageal reflux disease): Continue Protonix BID as able (15) DVT prophylaxis: Continue asa 81mg bid as able (16) Left ankle pain: ankle x-rays obtained -- no fracture. no CPPD crystals. asked staff to place 2gm voltaren gel on ankle. As per Previous hospitalist: updated by phone 05/29/21 grand-daughter Lisa (is a ophthalmic medical assistant by training) updated on 05/30 left message for on 05/31/21 on voicemail updated & son-in-law on 06/01/21 at bedside 06/02/21 - lengthy palliative discussion with , 2 sons, and granddaughter code status confirmed to be DNR/DNI discussed options for care -- continuing routine care in the hospital for a few more days to see if she has any significant improvement vs transitioning her to SNF with hopes that she can participate in rehab and improve (with ongoing palliative care to address pain, etc) vs enrolling her in hospice before hospital discharge. I explained that if they decided to have her placed at a SNF with intentions to pursue PT/OT that I don't think it would go well and that we would likely be discussing hospice again in the very near future. Explained further that her lack of appetite, refusing meds, and not tolerating even turning in bed portends a very poor prognosis. I mentioned that her best option would be hospice at this time. 06/03/21 - left message for Lyly Zambrano, grand-daughter ([phone]) - she is currently overseas in [place] attending phD program 06/03/21 - left message for Pierce Zambrano, son, on his voicemail Now s/p family meeting with Palliative on 06/04-most likely going to pursue hospice at [place] I discussed her care with her son Pierce and on 06/04 Case man involved Dispo-medically stable for discharge, going home with hospice at personal intermediate Total Time Total Time Spent Total Time Spent (In Minutes): 40 minutes Discharge Plan Discharge Items Patient Disposition: Hospice - Medical Facility Reason For Visit: LEFT HIP FRACTURE Discharge Diagnosis: Left Hip Arthroplasty for fracture, Cardiac arrest Condition on Discharge: Fair Activity: Per Instructions section Activity Comment: Follow/Obey hip precautions at all times Weightbearing: Full weightbearing Weightbearing Comment: Weightbear as tolerated obeying hip precautions Non-emergency contact: Primary Care Provider Call non-emergency contact if: you have any medication questions, your symptoms worsen and your pain is not controlled Follow-up/Referrals: Kelvin Zavala MD [Physician] - (Orthopedic follow-up 2-3 weeks from surgery date) [facility] [Primary Care Provider] - Diet: Regular Addtl Attending Provider Instructions: ACTIVITY RECOMMENDATIONS: Physical Therapy: * Aggressive physical therapy is not usually needed. You will learn to take care of yourself safely and walk. * Follow the "Hip Precautions Instructions." * In some cases, the social worker assistant at the hospital will arrange to have a therapist come to your house for the first couple of weeks to help you learn these skills. * You need to practice on your own or with the help of a family member as needed. * When you learn these skills, most of the therapy can be done on your own. Home Exercise: * You were shown a series of exercises in the hospital. Do these exercises three to four times each day including the exercises you were shown in physical therapy. Walking: * Get up and walk several times each day. For the first four weeks, try not to stand or walk for more than one hour at a time. If you do stand or walk for more than one hour, you will not hurt anything, but your leg will likely swell. * As you feel comfortable, you may change from the walker or crutches to a cane and then to independent walking. MEDICATIONS: "VERY IMPORTANT TO READ AND REVIEW" Pain: * The immediate post-operative period after hip replacement surgery is often quite painful. * You are given a prescription for pain medicine. You should take it, as directed, when you need it, especially before physical therapy and before going to bed. Pain that interferes with sleep is very common and can last several months. * You will likely need pain medicine for the first two to four weeks. It will not stop all of the pain. The pain will lessen and as you feel better, you may change to milder pain medicine such as Tylenol. * The most common side effects of pain medicine are nausea and constipation, so don't take more than you need. SPECIAL CARE INSTRUCTIONS: TEDs/Elastic Stockings: * The white elastic stockings help limit swelling and prevent blood clots from forming in your legs. The more you wear them, the more they work. * Wear them for six weeks. Incision Site Care: * Remove dressing postoperative day 2 and then shower. Keep direct shower pressure off the incision site. * After showering, cover lynn with dry gauze and change daily or more frequently if the dressing is getting saturated with drainage. * May completely stop using bandage if wound is dry and no drainage * Reading are removed between 2 and 3 weeks post-op. If your follow-up appointment is made before 2 weeks, please have your appointment re- scheduled. It is too early to remove the lynn. Prevention of Infection: * Take antibiotics one hour before any dental cleaning, dental work, urological procedure, gastrointestinal procedure or any invasive surgery in order to prevent your new joint from getting infected. * You may get the antibiotics from the doctor performing the procedure or you may call our office at before and we will call in a prescription to the pharmacy of your choice. Things to Watch For: * Drainage from the incision site that occurs more than one week after your surgery. * Severely increased leg pain or swelling. * Increased redness at the incision site. * Fever above 102 degrees Fahrenheit. * Unusual chest pain or shortness of breath. * Unusual pain or burning with urination. Call [facility] at with any of the above problems or if you have any questions about your medicines or recovery. FOLLOW UP VISIT: Make an appointment to see your doctor for approximately two weeks after surgery for a progress check and staple removal by calling the office at . Addtl Orchid Grower Provider Instructions: You had a cardiac arrest shortly after admission thought to be secondary to electrolyte deficiencies and certain medications you were on. You had CPR and because of that you have chest wall pain. You are having difficulty with eating and taking your medications due to cognitive decline in the setting of critical illness and a hip fracture. Because of this, you and your family have chosen to pursue Hospice to focus on comfort measures. A lot of your medications were discontinued in an effort to reduce pill burden (multivitamins, atorvastatin, calcium, etc.). You can take your lorazepam as scheduled at bedtime and oxycodone or tylenol as needed for pain. Pending Studies at Discharge: No Stand-Alone Forms: My [facility] Skilled Items Patient informed of condition?: Yes DNR: Yes Discharge Level of Care: Other Communicable Disease: No Discharge Prognosis: Stable Lines: None Urinary Catheter: Yes Medications and DC Order Prescriptions: New acetaminophen [Tylenol Extra Strength] 500 mg Tablet 1,000 mg PO TID Qty: 180 RF: 0 lisinopril [Zestril] 5 mg Tablet 5 mg PO QAM Qty: 30 RF: 0 aspirin 81 mg Tablet,Delayed Release (Dr/Ec) 81 mg PO BID 21 Days Qty: 42 RF: 0 diclofenac sodium [Voltaren Arthritis Pain] 1 % Gel 4 g EXT QID Qty: 100 RF: 0 oxycodone 5 mg Tablet 2.5 mg PO Q6H PRN (Reason: moderate-severe pain) Qty: 10 RF: 0 sennosides-docusate sodium [Senokot-S] 8.6-50 mg Tablet 1 tab PO QAM Qty: 30 RF: 0 magnesium oxide 400 mg (241.3 mg magnesium) Tablet 400 mg PO BID Qty: 60 RF: 0 Continued pantoprazole 40 mg tablet,delayed release (DR/EC) 40 mg PO BID Qty: 180 RF: 1 lorazepam 1 mg Tablet 1 mg PO QPM Qty: 30 RF: 0 Changed potassium chloride 20 mEq Tablet Extended Release 20 meq PO BID Qty: 60 RF: 0 Discontinued ondansetron HCl 4 mg tablet 4 mg PO Q8H PRN (Reason: Nausea) RF: 0 multivitamin Tablet 1 tab PO DAILY RF: 0 atorvastatin 10 mg Tablet 10 mg PO PM RF: 0 donepezil 10 mg Tablet 10 mg PO QPM RF: 0 atenolol 25 mg Tablet 25 mg PO QAM RF: 0 meclizine 25 mg Tablet 25 mg PO Q8H PRN (Reason: Dizziness) RF: 0 Caltrate 600 plus D 600 mg-20 mcg (800 unit) Tablet,Chewable 1 tab PO DAILY RF: 0 loperamide 2 mg Tablet 2 mg PO Q4H PRN (Reason: Diarrhea) RF: 0 memantine 5 mg Tablet 5 mg PO BID RF: 0 aspirin 81 mg Capsule 81 mg PO DAILY RF: 0 Discharge Orders: Discharge Order (Routine); Ordered 06/07/21 Ordered By: Amanda Varela/Other Patient Handouts: Fx Femur ORIF Admission Data Admit Date/Time: 05/26/21 05:48 Attending Provider: Amanda Blanco Admit Provider: Nerissa Zavala [facility] Other Providers: Nerissa Zavala ; Kelvin Zavala ; Charles Forte ; Sreedhar Dillard ; Luli Vega Other Interventions: Discharge Summary Assessment (RN) Last Done: 06/07/21 14:03 Coding Level of Care Code D/C DAY MANAGEMENT >30 MINS Diagnoses Closed left hip fracture S72.002A Failure to thrive Cardiac arrest I46.9 Constipation K59.00 Chest wall pain R07.89 Torsades de pointes I47.2 Bradycardia R00.1 Hypomagnesemia E83.42 Hypokalemia E87.6 Dementia F03.90 LBBB (left bundle branch block) I44.7 Hypertension I10 Hyperlipidemia E78.5 GERD (gastroesophageal reflux disease) K21.9 DVT prophylaxis Z29.9 Left ankle pain M25.572
== END 2021-06-07 14:57 | disposition hospice, home (50) | DRG 521 ==
LOC: ED 02:50 → 2N 05:48 → SUATTDRO 05:48 → 2N 06:30 → 1E 11:50 → 2E 05-28 16:13 → 3N 06-04 15:22